=== PATIENT | male | born 1945 | race Caucasian/White ===

== ENCOUNTER → 2016-10-09 | Outpatient (CLI) | payer MEDICARE, BC ==
[2016-10-09 10:28] LABS: CH 31.4; CHCM 33.2; HCT 42.5 % (39.0-53.0); HDW 2.72; HGB 13.9 gm/dL (13.0-17.5); MCH 31.1 pg (25.0-35.0); MCHC 32.7 g/dL (31.0-37.0); MCV 95.2 fL (80.0-100.0); Mean Platelet Volume 7.3; RBC 4.46 m/uL (4.30-5.90); RDW 13.5 % (11.5-15.5); WBC 4.6 k/uL (3.8-10.6)
[2016-10-09 10:40] LABS: ALT 52 U/L (21-72); AST 38 U/L (17-59); Alkaline Phosphatase 56 U/L (38-126); Anion Gap 10 mmol/L; Blood Urea Nitrogen 20 mg/dL (9-20); Calcium 9.6 mg/dL (8.4-10.2); Carbon Dioxide 29 mmol/L (22-30); Chloride 104 mmol/L (98-107); Cholesterol 177 mg/dL (<200); Glucose 124 mg/dL (74-99); HDL Cholesterol 52 mg/dL (40-60); Non-African American GFR(MDRD) >60 (>60 ml/min/1.73 sqM); Potassium 5.4 mmol/L (3.5-5.1); Sodium 143 mmol/L (137-145); Total Protein 7.5 g/dL (6.3-8.2); Triglycerides 80 mg/dL (<150)
[2016-10-09 10:55] LABS: Hemoglobin A1C 6.2 % (4.2-6.1)
[2016-10-09 11:50] LABS: Prostate Specific Antigen 3.32 ng/mL (0.00-4.00)
== END | disposition home or self-care (01) ==
LOC: LABWHC1 09:43
PROVIDERS: ATTEND Radiology Radiation Oncology
DX: C61 Malignant neoplasm of prostate (principal); E11.9 Type 2 diabetes mellitus without complications
CPT/HCPCS: 36415; 80053; 80061; 83036; 84153; 84439; 84443; 85027

== ENCOUNTER → 2017-01-04 | Outpatient (CLI) | payer MEDICARE, BC | END | disposition home or self-care (01) | LOC: LABWHC1 07:17 | PROVIDERS: ATTEND Radiology Radiation Oncology | DX: C61 Malignant neoplasm of prostate (principal) | CPT/HCPCS: 36415; 84153 ==

== ENCOUNTER → 2017-04-04 | Outpatient (CLI) | payer MEDICARE, BC | END | disposition home or self-care (01) | LOC: LABWHC1 06:34 | PROVIDERS: ATTEND Radiology Radiation Oncology | DX: C61 Malignant neoplasm of prostate (principal) | CPT/HCPCS: 36415; 84153 ==

== ENCOUNTER → 2017-05-01 | Outpatient (CLI) | payer MEDICARE, BC ==
[2017-05-01 07:43] LABS: Basophils % (A) 0 %; CH 32.1; CHCM 33.9; Eosinophils # (A) 0.2 k/uL (0-0.7); Eosinophils % (A) 2 %; HCT 42.2 % (39.0-53.0); HDW 2.51; Luc # (Auto) 0.16; Luc % (Auto) 2; Lymphocytes # (A) 1.5 k/uL (1.0-4.8); Lymphocytes % (A) 22 %; MCH 31.6 pg (25.0-35.0); MCHC 33.2 g/dL (31.0-37.0); Monocytes # (A) 0.4 k/uL (0-1.0); Monocytes % (A) 7 %; Neutrophils # (A) 4.4 k/uL (1.3-7.7); Neutrophils % (A) 66 %; RBC 4.45 m/uL (4.30-5.90); RDW 13.7 % (11.5-15.5); WBC 6.7 k/uL (3.8-10.6); WBC (Perox) 6.67
[2017-05-01 08:09] LABS: ALT 42 U/L (21-72); AST 35 U/L (17-59); Alkaline Phosphatase 51 U/L (38-126); Anion Gap 10 mmol/L; Blood Urea Nitrogen 19 mg/dL (9-20); Calcium 9.8 mg/dL (8.4-10.2); Carbon Dioxide 29 mmol/L (22-30); Chloride 102 mmol/L (98-107); Cholesterol 182 mg/dL (<200); Glucose 99 mg/dL (74-99); HDL Cholesterol 49 mg/dL (40-60); Non-African American GFR(MDRD) >60 (>60 ml/min/1.73 sqM); Potassium 4.4 mmol/L (3.5-5.1); Sodium 141 mmol/L (137-145); Total Bilirubin 1.1 mg/dL (0.2-1.3); Total Protein 7.4 g/dL (6.3-8.2)
[2017-05-01 09:53] LABS: Hemoglobin A1C 6.1 % (4.2-6.1)
== END | disposition home or self-care (01) ==
LOC: LABWHC1 07:09
PROVIDERS: ATTEND Internal Medicine
DX: E11.9 Type 2 diabetes mellitus without complications (principal); E78.00 Pure hypercholesterolemia, unspecified; Z13.228 Encounter for screening for other metabolic disorders
CPT/HCPCS: 36415; 80053; 80061; 83036; 84439; 84443; 85025

== ENCOUNTER → 2017-11-02 | Outpatient (CLI) | payer MEDICARE, BC ==
[2017-11-02 08:15] LABS: Basophils % (A) 0 %; Eosinophils # (A) 0.1 k/uL (0-0.7); Eosinophils % (A) 3 %; HCT 44.2 % (39.0-53.0); Lymphocytes # (A) 1.9 k/uL (1.0-4.8); Lymphocytes % (A) 38 %; MCH 30.9 pg (25.0-35.0); MCHC 31.6 g/dL (31.0-37.0); MCV 97.6 fL (80.0-100.0); Mean Platelet Volume 6.5; Monocytes # (A) 0.3 k/uL (0-1.0); Monocytes % (A) 7 %; Neutrophils # (A) 2.5 k/uL (1.3-7.7); Neutrophils % (A) 50 %; Platelet Count 251 k/uL (150-450); RBC 4.53 m/uL (4.30-5.90); WBC 5.1 k/uL (3.8-10.6)
[2017-11-02 11:40] LABS: ALT 43 U/L (21-72); AST 30 U/L (17-59); Albumin 4.5 g/dL (3.5-5.0); Alkaline Phosphatase 55 U/L (38-126); Anion Gap 9 mmol/L; Blood Urea Nitrogen 21 mg/dL (9-20); Calcium 9.9 mg/dL (8.4-10.2); Carbon Dioxide 32 mmol/L (22-30); Chloride 103 mmol/L (98-107); Cholesterol 156 mg/dL (<200); Glucose 125 mg/dL (74-99); HDL Cholesterol 44 mg/dL (40-60); LDL Cholesterol,Calculated 93 mg/dL (0-99); Potassium 5.2 mmol/L (3.5-5.1); Sodium 144 mmol/L (137-145); Total Bilirubin 0.9 mg/dL (0.2-1.3); Total Protein 7.2 g/dL (6.3-8.2); Triglycerides 93 mg/dL (<150)
[2017-11-02 11:42] LABS: Hemoglobin A1C 6.1 % (4.0-6.0)
[2017-11-02 12:18] LABS: Prostate Specific Antigen 0.83 ng/mL (0.00-4.00)
[2017-11-02 13:51] LABS: T4, Free (Free Thyroxine) 0.86 ng/dL (0.78-2.19)
== END | disposition home or self-care (01) ==
LOC: LABWHC1 07:35
PROVIDERS: ATTEND Radiology Radiation Oncology
DX: C61 Malignant neoplasm of prostate (principal); E78.00 Pure hypercholesterolemia, unspecified; E11.9 Type 2 diabetes mellitus without complications
CPT/HCPCS: 36415; 80053; 80061; 83036; 84153; 84439; 84443; 85025

== ENCOUNTER → 2018-04-22 | Outpatient (CLI) | payer MEDICARE, BC ==
[2018-04-22 07:29] LABS: MCH 30.3 pg (25.0-35.0); MCHC 32.6 g/dL (31.0-37.0); Mean Platelet Volume 6.3; Platelet Count 253 k/uL (150-450); RBC 4.62 m/uL (4.30-5.90); RDW 13.1 % (11.5-15.5); WBC 6.9 k/uL (3.8-10.6)
[2018-04-22 09:06] LABS: Albumin 4.6 g/dL (3.5-5.0); Potassium 5.1 mmol/L (3.5-5.1); Total Bilirubin 1.1 mg/dL (0.2-1.3); Total Protein 7.4 g/dL (6.3-8.2)
[2018-04-22 09:36] LABS: Prostate Specific Antigen 1.46 ng/mL (0.00-4.00)
[2018-04-22 16:46] LABS: Hemoglobin A1C 6.3 % (4.0-6.0)
== END | disposition home or self-care (01) ==
LOC: LABWHC1 07:04
PROVIDERS: ATTEND Radiology Radiation Oncology
DX: C61 Malignant neoplasm of prostate (principal)
CPT/HCPCS: 36415; 80053; 83036; 84153; 85027

== ENCOUNTER → 2018-07-23 | Outpatient (CLI) | payer MEDICARE, BC ==
[2018-07-23 08:40] LABS: Basophils % (A) 0 %; Eosinophils # (A) 0.1 k/uL (0-0.7); Eosinophils % (A) 2 %; HCT 41.1 % (39.0-53.0); HGB 13.6 gm/dL (13.0-17.5); Lymphocytes # (A) 1.9 k/uL (1.0-4.8); Lymphocytes % (A) 29 %; MCH 30.7 pg (25.0-35.0); MCHC 33.2 g/dL (31.0-37.0); MCV 92.5 fL (80.0-100.0); Mean Platelet Volume 6.9; Monocytes # (A) 0.4 k/uL (0-1.0); Monocytes % (A) 6 %; Neutrophils # (A) 4.1 k/uL (1.3-7.7); Neutrophils % (A) 61 %; Platelet Count 265 k/uL (150-450); RBC 4.45 m/uL (4.30-5.90); RDW 13.2 % (11.5-15.5); WBC 6.6 k/uL (3.8-10.6)
[2018-07-23 16:31] LABS: Anion Gap 10.3 mmol/L (4.00-12.00); Calcium 9.6 mg/dL (8.7-10.3); Carbon Dioxide 26.7 mmol/L (21.6-31.8); Potassium 4.6 mmol/L (3.5-5.5)
[2018-07-23 16:40] LABS: Prostate Specific Antigen 0.6 ng/mL (0.0-6.5)
== END | disposition home or self-care (01) ==
LOC: LABWHC1 07:10
PROVIDERS: ATTEND Radiology Radiation Oncology
DX: C61 Malignant neoplasm of prostate (principal); Z92.3 Personal history of irradiation
CPT/HCPCS: 36415; 80048; 84153; 85025

== ENCOUNTER → 2018-09-16 | Outpatient (CLI) | payer MEDICARE, BC ==
[2018-09-16 09:57] LABS: Basophils % (A) 0 %; Eosinophils # (A) 0.2 k/uL (0-0.7); Eosinophils % (A) 2 %; HCT 43.8 % (39.0-53.0); HGB 14.2 gm/dL (13.0-17.5); Lymphocytes # (A) 1.9 k/uL (1.0-4.8); Lymphocytes % (A) 25 %; MCH 30.3 pg (25.0-35.0); MCHC 32.4 g/dL (31.0-37.0); MCV 93.5 fL (80.0-100.0); Mean Platelet Volume 6.8; Monocytes # (A) 0.6 k/uL (0-1.0); Monocytes % (A) 8 %; Neutrophils # (A) 4.8 k/uL (1.3-7.7); Neutrophils % (A) 62 %; Platelet Count 247 k/uL (150-450); RBC 4.68 m/uL (4.30-5.90); RDW 13.2 % (11.5-15.5); WBC 7.7 k/uL (3.8-10.6)
[2018-09-16 15:57] LABS: Albumin 4.9 g/dL (3.80-4.90); Albumin/Globulin Ratio 2.33 (1.20-2.10); Anion Gap 8.8 mmol/L (4.00-12.00); Calcium 10.1 mg/dL (8.7-10.3); Carbon Dioxide 27.2 mmol/L (21.6-31.8); Globulin 2.1 g/dL (1.6-3.3); LDL Cholesterol,Calculated 98.6 mg/dL (0.0-131.0); Potassium 5.2 mmol/L (3.5-5.5); Total Bilirubin 1.1 mg/dL (0.2-1.2); VLDL Calculation 23.4 mg/dL (5.00-40.00)
[2018-09-16 20:29] LABS: Hemoglobin A1C 6.3 % (4.0-6.0)
== END ==
LOC: LABWHC1 08:46
PROVIDERS: ATTEND Internal Medicine
DX: E78.00 Pure hypercholesterolemia, unspecified (principal); E11.9 Type 2 diabetes mellitus without complications
CPT/HCPCS: 36415; 80053; 80061; 83036; 84439; 84443; 85025

== ENCOUNTER → 2018-11-11 | Outpatient (CLI) | payer MEDICARE, BC ==
[2018-11-11 11:54] LABS: ALT 39 U/L (10-49); AST 38 U/L (14-35)
[2018-11-11 12:28] LABS: Hepatitis A Antibody IgM Non-Reactive (Non-Reactive); Hepatitis B Core IgM Non-Reactive (Non-Reactive)
== END | disposition home or self-care (01) ==
LOC: LABWHC1 07:04
PROVIDERS: ATTEND Internal Medicine
DX: R79.89 Other specified abnormal findings of blood chemistry (principal)
CPT/HCPCS: 36415; 80074; 84450; 84460

== ENCOUNTER → 2019-01-23 | Outpatient (CLI) | payer MEDICARE, BC ==
[2019-01-23 10:26] LABS: HCT 42.2 % (39.0-53.0); HGB 13.8 gm/dL (13.0-17.5); MCH 30.7 pg (25.0-35.0); MCHC 32.7 g/dL (31.0-37.0); MCV 93.9 fL (80.0-100.0); Mean Platelet Volume 6.5; Platelet Count 253 k/uL (150-450); RDW 13.2 % (11.5-15.5); WBC 6.3 k/uL (3.8-10.6)
[2019-01-23 10:28] LABS: Appearance,Urine Clear (Clear); Bilirubin,Urine Negative (Negative); Blood,Urine Negative (Negative); Color,Urine Yellow; Glucose,Urine (UA) Negative (Negative); Ketones,Urine Negative (Negative); Leukocyte Esterase,Urine Negative (Negative); Nitrite,Urine Negative (Negative); PH, Urine 5.5 (5.0-8.0); Protein,Urine Negative (Negative); Specific Gravity,Urine 1.022 (1.001-1.035); Urobilinogen,Urine <2.0 mg/dL (<2.0)
[2019-01-23 16:25] LABS: Albumin 4.5 g/dL (3.80-4.90); Albumin/Globulin Ratio 2.5 (1.60-3.17); Anion Gap 7.8 mmol/L (4.00-12.00); Calcium 9.3 mg/dL (8.7-10.3); Carbon Dioxide 29.2 mmol/L (21.6-31.8); Globulin 1.8 g/dL (1.6-3.3); LDL Cholesterol,Calculated 82.8 mg/dL (0.0-131.0); Total Bilirubin 0.8 mg/dL (0.2-1.2); Total Protein 6.3 g/dL (6.2-8.2); VLDL Calculation 20.2 mg/dL (5.00-40.00)
[2019-01-23 20:38] LABS: Hemoglobin A1C 6.4 % (4.0-6.0)
== END | disposition home or self-care (01) ==
LOC: LABWHC1 09:55
PROVIDERS: ATTEND Internal Medicine
DX: E11.9 Type 2 diabetes mellitus without complications (principal); E78.00 Pure hypercholesterolemia, unspecified
CPT/HCPCS: 36415; 80053; 80061; 81003; 82043; 82570; 83036; 85027

== ENCOUNTER → 2019-05-30 | Outpatient (CLI) | payer MEDICARE, BC | END | disposition home or self-care (01) | LOC: LABWHC1 07:56 | PROVIDERS: ATTEND Radiology Radiation Oncology | DX: C61 Malignant neoplasm of prostate (principal); Z92.3 Personal history of irradiation | CPT/HCPCS: 36415; 84153 ==

== ENCOUNTER → 2019-11-25 | Outpatient (CLI) | payer MEDICARE, BC | END | disposition home or self-care (01) | LOC: LABWHC1 07:06 | PROVIDERS: ATTEND Radiology Radiation Oncology | DX: C61 Malignant neoplasm of prostate (principal); Z92.3 Personal history of irradiation | CPT/HCPCS: 36415; 84153 ==

== ENCOUNTER → 2020-03-17 | Outpatient (CLI) | payer MEDICARE, BC ==
[2020-03-17 10:47] LABS: Basophils % (A) 0 %; Eosinophils # (A) 0.2 k/uL (0-0.7); Eosinophils % (A) 3 %; HCT 43.7 % (39.0-53.0); HGB 13.8 gm/dL (13.0-17.5); Lymphocytes # (A) 1.9 k/uL (1.0-4.8); Lymphocytes % (A) 35 %; MCH 30.1 pg (25.0-35.0); MCHC 31.6 g/dL (31.0-37.0); MCV 95.4 fL (80.0-100.0); Mean Platelet Volume 6.7; Monocytes # (A) 0.3 k/uL (0-1.0); Monocytes % (A) 6 %; Neutrophils % (A) 54 %; Platelet Count 241 k/uL (150-450); RBC 4.58 m/uL (4.30-5.90); RDW 12.9 % (11.5-15.5); WBC 5.5 k/uL (3.8-10.6)
[2020-03-17 16:21] LABS: Albumin 4.5 g/dL (3.80-4.90); Albumin/Globulin Ratio 2.05 (1.60-3.17); Anion Gap 7.6 mmol/L (4.00-12.00); Calcium 9.1 mg/dL (8.7-10.3); Carbon Dioxide 26.4 mmol/L (21.6-31.8); Chol/HDL Ratio 3.49; Globulin 2.2 g/dL (1.6-3.3); LDL Cholesterol,Calculated 78.2 mg/dL (0.0-131.0); Non-African American GFR(CKD) 73.3 (60.0-200.0); Potassium 4.8 mmol/L (3.5-5.5); Total Bilirubin 1.1 mg/dL (0.3-1.2); Total Protein 6.7 g/dL (6.2-8.2); VLDL Calculation 23.8 mg/dL (5.00-40.00)
[2020-03-17 17:04] LABS: Urine Creatinine 146.1 mg/dL
[2020-03-17 18:18] LABS: Hemoglobin A1C 6.4 % (4.0-6.0)
== END | disposition home or self-care (01) ==
LOC: LABWHC1 09:53
PROVIDERS: ATTEND Internal Medicine
DX: E78.00 Pure hypercholesterolemia, unspecified (principal); E11.9 Type 2 diabetes mellitus without complications
CPT/HCPCS: 36415; 80053; 80061; 82043; 82570; 83036; 85025

== ENCOUNTER → 2020-04-22 | Outpatient (CLI) | payer MEDICARE, BC ==
[2020-04-22 12:36] LABS: Hepatitis A Antibody IgM Non-Reactive (Non-Reactive); Hepatitis B Core IgM Non-Reactive (Non-Reactive); Hepatitis B Surface Antigen Non-Reactive (Non-Reactive); Hepatitis C IgG Antibody Non-Reactive (Non-Reactive)
== END | disposition home or self-care (01) ==
LOC: LABWHC1 07:10
PROVIDERS: ATTEND Internal Medicine
DX: Z20.828 Contact with and (suspected) exposure to other viral communicable diseases (principal)
CPT/HCPCS: 36415; 80074

== ENCOUNTER → 2020-06-29 | Outpatient (CLI) | payer MEDICARE, BC ==
[2020-06-29 07:37] LABS: Basophils % (A) 0 %; Eosinophils # (A) 0.3 k/uL (0-0.7); Eosinophils % (A) 4 %; HCT 42.9 % (39.0-53.0); HGB 13.8 gm/dL (13.0-17.5); Lymphocytes # (A) 2.2 k/uL (1.0-4.8); Lymphocytes % (A) 36 %; MCH 30.1 pg (25.0-35.0); MCV 93.9 fL (80.0-100.0); Monocytes # (A) 0.4 k/uL (0-1.0); Monocytes % (A) 7 %; Neutrophils # (A) 3.1 k/uL (1.3-7.7); Neutrophils % (A) 51 %; Platelet Count 237 k/uL (150-450); RBC 4.57 m/uL (4.30-5.90); RDW 13.2 % (11.5-15.5); WBC 6.2 k/uL (3.8-10.6)
[2020-06-29 14:00] LABS: Urine Creatinine 132.4 mg/dL
[2020-06-29 14:08] LABS: African American GFR (CKD) 68.1 (60.0-200.0); Albumin 4.4 g/dL (3.80-4.90); Albumin/Globulin Ratio 2.1 (1.60-3.17); Anion Gap 10.8 mmol/L (4.00-12.00); BUN/Creat Ratio 18.33 Ratio (12.00-20.00); Calcium 9.4 mg/dL (8.7-10.3); Carbon Dioxide 25.2 mmol/L (21.6-31.8); Chol/HDL Ratio 3.81; Globulin 2.1 g/dL (1.6-3.3); LDL Cholesterol,Calculated 99.6 mg/dL (0.0-131.0); Non-African American GFR(CKD) 58.8 (60.0-200.0); Potassium 4.5 mmol/L (3.5-5.5); Total Bilirubin 0.8 mg/dL (0.3-1.2); Total Protein 6.5 g/dL (6.2-8.2); VLDL Calculation 21.4 mg/dL (5.00-40.00)
[2020-06-29 14:24] LABS: Hemoglobin A1C 6.3 % (4.0-6.0)
== END | disposition home or self-care (01) ==
LOC: LABWHC1 06:58
PROVIDERS: ATTEND Internal Medicine
DX: E78.00 Pure hypercholesterolemia, unspecified (principal); E55.9 Vitamin D deficiency, unspecified; E11.9 Type 2 diabetes mellitus without complications
CPT/HCPCS: 36415; 80053; 80061; 82043; 82306; 82570; 83036; 85025

== ENCOUNTER → 2020-11-25 | Outpatient (CLI) | payer MEDICARE, BC | END | disposition home or self-care (01) | LOC: LABWHC1 07:44 | PROVIDERS: ATTEND Radiology Radiation Oncology | DX: C61 Malignant neoplasm of prostate (principal); Z92.3 Personal history of irradiation | CPT/HCPCS: 36415; 84153 ==

== ENCOUNTER 2021-03-26 11:15 | Emergency (ER) | payer MEDICARE, BC ==
[2021-03-26 11:30] VITALS: TEMP 98.2
--- NOTE | 2021-03-26 11:50 | ED ---
General Adult HPI - General Chief complaint: Urogenital Stated complaint: Male & abd pain Time Seen by Provider: 03/26/21 11:25 Source: patient, RN notes reviewed, old records reviewed Mode of arrival: ambulatory Limitations: no limitations - History of Present Illness Initial comments: This is a 75-year-old male who presents to the emergency department complaining of a little lower abdominal pain throughout the night and started having some left testicular discomfort and thinks it's a little swollen. Patient denies any palpable pain in the abdomen. Patient denies any back pain. Patient denies dysuria hematuria urinary frequency. Patient denies any injury or trauma. Patient states she does have history of kidney stones. Patient denies any recent fever chills or cough. Patient denies any chest pain or difficulty breathing. - Related Data Home Medications Medication Instructions Recorded Confirmed Aspirin 81 mg PO DAILY 02/25/15 03/26/21 Cholecalciferol [Vitamin D3] 1,000 unit PO DAILY 02/25/15 03/26/21 Diclofenac Sodium [Voltaren] 75 mg PO DAILY 02/25/15 03/26/21 Glucosam/Sekou-Msm1/C/Clay/Bosw 1 tab PO DAILY 02/25/15 03/26/21 [Glucosamine-Chondroitin Tablet] Multivitamins, Thera [Multivitamin] 1 tab PO DAILY 02/25/15 03/26/21 metFORMIN HCL [Metformin HCl ER] 500 mg PO DAILY 02/25/15 03/26/21 traMADol HCl [Ultram] 50 mg PO TID PRN 02/25/15 03/26/21 Ascorbic Acid [Vitamin C] 1,000 mg PO DAILY 03/26/21 03/26/21 Atorvastatin Calcium [Lipitor] 40 mg PO DAILY 03/26/21 03/26/21 Previous Rx's Medication Instructions Recorded Ketorolac [Toradol] 10 mg PO Q6HR #15 tab 03/26/21 Tamsulosin [Flomax] 0.4 mg PO DAILY #10 cap 03/26/21 Allergies Allergy/AdvReac Type Severity Reaction Status Date / Time acetaminophen Allergy INCREASED Verified 03/26/21 12:14 LIVER ENZYMES Review of Systems ROS Statement: Those systems with pertinent positive or pertinent negative responses have been documented in the HPI. ROS Other: All systems not noted in ROS Statement are negative. Past Medical History Past Medical History: Diabetes Mellitus, Hyperlipidemia, Osteoarthritis (OA), Sleep Apnea/CPAP/BIPAP Additional Past Medical History / Comment(s): USES CPAP. FAILED STRESS TEST. SEASONAL ALLERGIES. CHRONIC BACK PAIN. History of Any Multi-Drug Resistant Organisms: None Reported Past Surgical History: Back Surgery Additional Past Surgical History / Comment(s): BACK SURGERY TIMES 2. Past Anesthesia/Blood Transfusion Reactions: No Reported Reaction Past Psychological History: No Psychological Hx Reported Smoking Status: Never smoker Past Alcohol Use History: None Reported Past Drug Use History: None Reported - Past Family History Father Family Medical History: CVA/TIA General Exam - General Exam Comments Initial Comments: GENERAL: Patient is well-developed and well-nourished. Patient is nontoxic and well- hydrated and is in mild distress. ENT: Neck is soft and supple. No significant lymphadenopathy is noted. Oropharynx is clear. Moist mucous membranes. Neck has full range of motion without eliciting any pain. EYES: The sclera were anicteric and conjunctiva were pink and moist. Extraocular movements were intact and pupils were equal round and reactive to light. Eyelids were unremarkable. ABDOMEN: Soft and nontender with normal bowel sounds. GENITALIA: Patient's left testicle was slightly swollen and only minimally painful SKIN: Skin is clear with no lesions or rashes and otherwise unremarkable. NEUROLOGIC: Patient is alert and oriented x3. Cranial nerves II through XII are grossly intact. Motor and sensory are also intact. Normal speech, volume and content. Symmetrical smile. MUSCULOSKELETAL: Normal extremities with adequate strength and full range of motion. LYMPHATICS: No significant lymphadenopathy is noted PSYCHIATRIC: Normal psychiatric evaluation. Limitations: no limitations Course Vital Signs 03/26/21 03/26/21 03/26/21 11:26 13:55 14:53 Temperature 98.2 F Pulse Rate 57 L 59 L Respiratory 16 18 18 Rate Blood Pressure 151/84 139/80 132/81 O2 Sat by Pulse 96 99 Oximetry Medical Decision Making - Medical Decision Making Ultrasound showed possible epididymitis however the patient's pain was not consistent with epididymitis. I did CAT scan the patient's abdomen and it did show a mid left ureter stone with hydronephrosis. Patient received Toradol emergency department. I explained to the patient they did not think it epididymitis and that if he continued to bother him or symptoms worsened he was to follow-up with the ER or his primary medical care doctor immediately - Lab Data Result diagrams: 03/26/21 13:55 03/26/21 13:55 Lab Results 03/26/21 03/26/21 03/26/21 Range/Units 11:55 13:55 13:55 WBC 6.4 (3.8-10.6) k/uL RBC 4.18 L (4.30-5.90) m/uL Hgb 13.4 (13.0-17.5) gm/dL Hct 38.5 L (39.0-53.0) % MCV 92.1 (80.0-100.0) fL MCH 32.1 (25.0-35.0) pg MCHC 34.9 (31.0-37.0) g/dL RDW 12.8 (11.5-15.5) % Plt Count 236 (150-450) k/uL MPV 6.5 Neutrophils % 63 % Lymphocytes % 26 % Monocytes % 6 % Eosinophils % 4 % Basophils % 0 % Neutrophils # 4.0 (1.3-7.7) k/uL Lymphocytes # 1.6 (1.0-4.8) k/uL Monocytes # 0.4 (0-1.0) k/uL Eosinophils # 0.2 (0-0.7) k/uL Basophils # 0.0 (0-0.2) k/uL Sodium 138 (137-145) mmol/L Potassium 4.4 (3.5-5.1) mmol/L Chloride 107 (98-107) mmol/L Carbon Dioxide 26 (22-30) mmol/L Anion Gap 5 mmol/L BUN 21 H (9-20) mg/dL Creatinine 0.91 (0.66-1.25) mg/dL Est GFR (CKD-EPI)AfAm >90 (>60 ml/min/1.73 sqM) Est GFR (CKD-EPI)NonAf 82 (>60 ml/min/1.73 sqM) Glucose 127 H (74-99) mg/dL Calcium 9.3 (8.4-10.2) mg/dL Total Bilirubin 1.2 (0.2-1.3) mg/dL AST 36 (17-59) U/L ALT 32 (4-49) U/L Alkaline Phosphatase 38 (38-126) U/L Total Protein 6.4 (6.3-8.2) g/dL Albumin 3.9 (3.5-5.0) g/dL Urine Color Light Red Urine Appearance Cloudy (Clear) Urine pH 5.0 (5.0-8.0) Ur Specific [place] 1.020 (1.001-1.035) Urine Protein 1+ H (Negative) Urine Glucose (UA) Negative (Negative) Urine Ketones Negative (Negative) Urine Blood Large H (Negative) Urine Nitrite Negative (Negative) Urine Bilirubin Negative (Negative) Urine Urobilinogen <2.0 (<2.0) mg/dL Ur Leukocyte Esterase Negative (Negative) Urine RBC >182 H (0-5) /hpf Urine WBC 7 H (0-5) /hpf Urine Bacteria Rare H (None) /hpf Urine Mucus Rare H (None) /hpf Disposition Clinical Impression: Kidney stone Disposition: HOME SELF-CARE Condition: Good Instructions (If sedation given, give patient instructions): Kidney Stones (ED), How to Strain Your Urine (ED) Prescriptions: Tamsulosin [Flomax] 0.4 mg PO DAILY #10 cap Ketorolac [Toradol] 10 mg PO Q6HR #15 tab Is patient prescribed a controlled substance at d/c from ED?: No Referrals: Gabby Velazquez MD [Primary Care Provider] - 1-2 days Time of Disposition: 15:03
[2021-03-26 12:16] LABS: Appearance,Urine Cloudy (Clear); Bacteria,Urine Rare /hpf; Bilirubin,Urine Negative (Negative); Blood,Urine Large (Negative); Color,Urine Light Red; Glucose,Urine (UA) Negative (Negative); Ketones,Urine Negative (Negative); Leukocyte Esterase,Urine Negative (Negative); Mucus,Urine Rare /hpf; Nitrite,Urine Negative (Negative); Protein,Urine 1+ (Negative); RBC,Urine >182 /hpf (0-5); Urobilinogen,Urine <2.0 mg/dL (<2.0); WBC,Urine 7 /hpf (0-5)
--- NOTE | 2021-03-26 12:42 | US ---
EXAMINATION TYPE: US scrotum with doppler. Grayscale and color Doppler Duplex imaging performed of bo fernández scrotum. DATE OF EXAM: 03/26/2021 COMPARISON: NONE CLINICAL HISTORY: Swollen painful testicle. EXAM MEASUREMENTS: TESTICLES: Right Testicle: 5.4 x 3.4 x 3.7 cm Left Testicle: 5.5 x 2.8 x 3.8 cm EPIDIDYMIS HEAD: Right Epididymis: 1.0 x 1.5 cm Left Epididymis: 1.3 x 0.8 cm Doppler performed to assess for testicular vascularity; good bilateral color flow and waveforms are s een. Asymmetrically increased flow in the left testicle compared to the right. There may be tiny cysts in the bilateral testicular parenchyma. No concerning testicular mass. Presence of hydroceles: small amount of fluid around left testicle. Soft tissue: Left testicular wall edema. IMPRESSION: 1. No evidence of testicular torsion. 2. Findings suggest left epididymitis and/or orchitis.
[2021-03-26 13:56] VITALS: RESP 18
[2021-03-26 14:05] LABS: Basophils % (A) 0 %; Eosinophils # (A) 0.2 k/uL (0-0.7); Eosinophils % (A) 4 %; HCT 38.5 % (39.0-53.0); HGB 13.4 gm/dL (13.0-17.5); Lymphocytes # (A) 1.6 k/uL (1.0-4.8); Lymphocytes % (A) 26 %; MCH 32.1 pg (25.0-35.0); MCHC 34.9 g/dL (31.0-37.0); MCV 92.1 fL (80.0-100.0); Mean Platelet Volume 6.5; Monocytes # (A) 0.4 k/uL (0-1.0); Monocytes % (A) 6 %; Neutrophils % (A) 63 %; Platelet Count 236 k/uL (150-450); RBC 4.18 m/uL (4.30-5.90); RDW 12.8 % (11.5-15.5); WBC 6.4 k/uL (3.8-10.6)
[2021-03-26 14:13] LABS: ALT 32 U/L (4-49); AST 36 U/L (17-59); African American GFR (CKD) >90 (>60 ml/min/1.73 sqM); Albumin 3.9 g/dL (3.5-5.0); Alkaline Phosphatase 38 U/L (38-126); Anion Gap 5 mmol/L; Blood Urea Nitrogen 21 mg/dL (9-20); Calcium 9.3 mg/dL (8.4-10.2); Carbon Dioxide 26 mmol/L (22-30); Chloride 107 mmol/L (98-107); Glucose 127 mg/dL (74-99); Non-African American GFR(CKD) 82 (>60 ml/min/1.73 sqM); Potassium 4.4 mmol/L (3.5-5.1); Sodium 138 mmol/L (137-145); Total Bilirubin 1.2 mg/dL (0.2-1.3); Total Protein 6.4 g/dL (6.3-8.2)
--- NOTE | 2021-03-26 14:40 | CT ---
EXAMINATION TYPE: CT abdomen pelvis wo con DATE OF EXAM: 03/26/2021 COMPARISON: None HISTORY: gross hematuria, bilateral pelvic pain, worse on left CT DLP: 1835 mGycm Automated exposure control for dose reduction was used. There is mild subsegmental atelectasis at the lung bases. Heart size is normal. There is no pericardi al effusion. Liver spleen stomach pancreas gallbladder appear intact. The bile ducts are not dilated. There is no adrenal mass. There is 2 cm cortical cyst posterior right kidney. There are bilateral renal calculi that measure up to 8 mm. There is 2 cm cortical cyst upper pole left kidney. There is mild left-sided hydronephrosis . There is 5 mm obstructing calculus in the mid left ureter. The right ureter is not dilated. There i s no retroperitoneal adenopathy. The bladder distends smoothly. There is left-sided inguinal hernia t hat contains fat. There is no free fluid in the pelvis. There is no mesenteric edema. There is no ascites or free air. There is no bowel obstruction. There i s isolated sigmoid diverticula. There is no diverticulitis. Appendix appears normal. The lumbar vertebra have fairly normal alignment. There is a mild degenerative first-degree L4-5 spon dylolisthesis. There is moderately severe spinal stenosis at L4-5. There is less severe stenosis at L 3-4. There is mild stenosis also at L2-3. There is no compression fracture. The hip joints are intact . The bony pelvis appears intact. IMPRESSION: Obstructing calculus left mid ureter with left-sided hydronephrosis. Bilateral renal calculi. Normal appendix.
[2021-03-26 14:54] VITALS: PULSE 59
[2021-03-26] MEDS: KETOROLAC 15 MG/ML 1 ML VIAL IVP STA (15:09)
[2021-03-26 15:12] VITALS: BP 158/84
== END 2021-03-26 15:13 | disposition home or self-care (01) ==
LOC: EC 11:15
DX: N13.2 Hydronephrosis with renal and ureteral calculous obstruction (principal); N50.812 Left testicular pain; N50.89 Other specified disorders of the male genital organs; E11.9 Type 2 diabetes mellitus without complications; E78.5 Hyperlipidemia, unspecified; M19.90 Unspecified osteoarthritis, unspecified site; G47.30 Sleep apnea, unspecified; Z79.82 Long term (current) use of aspirin; Z79.84 Long term (current) use of oral hypoglycemic drugs
CPT/HCPCS: 36415; 80053; 85025; 81001; 93975; 76870; 74176; 99284; 96374; J1885

== ENCOUNTER → 2021-05-31 | Outpatient (CLI) | payer MEDICARE, BC ==
[2021-05-31 11:03] LABS: Basophils # (A) 0.02 X 10*3/uL (0.00-0.10); Basophils % (A) 0.3 %; Eosinophils # (A) 0.18 X 10*3/uL (0.04-0.35); Eosinophils % (A) 2.8 %; HCT 39.7 % (39.6-50.0); Lymphocytes # (A) 1.63 X 10*3/uL (0.90-5.00); Lymphocytes % (A) 25.8 %; MCH 31.2 pg (27.0-32.0); MCHC 32.7 g/dL (32.0-37.0); MCV 95.2 fL (80.0-97.0); Mean Platelet Volume 9.7 fL (9.5-12.2); Monocytes # (A) 0.63 X 10*3/uL (0.20-1.00); Neutrophils # (A) 3.85 X 10*3/uL (1.80-7.70); Neutrophils % (A) 60.9 %; Platelet Count 267 X 10*3/uL (140-440); RBC 4.17 X 10*6/uL (4.40-5.60); RDW 12.5 % (11.5-14.5); WBC 6.32 X 10*3/uL (4.50-10.00)
[2021-05-31 12:35] LABS: African American GFR (CKD) 67.7 (60.0-200.0); Albumin 4.4 g/dL (3.80-4.90); Albumin/Globulin Ratio 1.83 (1.60-3.17); Anion Gap 10.2 mmol/L (4.00-12.00); BUN/Creat Ratio 18.33 Ratio (12.00-20.00); Calcium 9.6 mg/dL (8.7-10.3); Carbon Dioxide 25.8 mmol/L (21.6-31.8); Chol/HDL Ratio 3.3; Globulin 2.4 g/dL (1.6-3.3); LDL Cholesterol,Calculated 91.8 mg/dL (0.0-131.0); Non-African American GFR(CKD) 58.4 (60.0-200.0); Potassium 4.1 mmol/L (3.5-5.5); Total Protein 6.8 g/dL (6.2-8.2); VLDL Calculation 16.2 mg/dL (5.00-40.00)
[2021-05-31 15:01] LABS: Hemoglobin A1C 6.5 % (4.0-6.0)
== END | disposition home or self-care (01) ==
LOC: LABWHC1 07:00
PROVIDERS: ATTEND Internal Medicine
DX: Z00.01 Encounter for general adult medical examination with abnormal findings (principal); E11.9 Type 2 diabetes mellitus without complications; E78.00 Pure hypercholesterolemia, unspecified; E55.9 Vitamin D deficiency, unspecified
CPT/HCPCS: 36415; 80053; 80061; 82043; 82306; 82570; 83036; 85025

== ENCOUNTER → 2021-11-30 | Outpatient (CLI) | payer MEDICARE, BC ==
[2021-11-30 15:31] LABS: Basophils # (A) 0.03 X 10*3/uL (0.00-0.10); Basophils % (A) 0.4 %; Eosinophils # (A) 0.21 X 10*3/uL (0.04-0.35); Eosinophils % (A) 2.9 %; HCT 40.9 % (39.6-50.0); HGB 13.3 g/dL (13.0-17.0); Immature Grans, Automated 0.3 %; Lymphocytes # (A) 2.16 X 10*3/uL (0.90-5.00); Lymphocytes % (A) 30.3 %; MCH 30.5 pg (27.0-32.0); MCHC 32.5 g/dL (32.0-37.0); MCV 93.8 fL (80.0-97.0); Mean Platelet Volume 9.9 fL (9.5-12.2); Monocytes % (A) 9.8 %; NRBC Per 100 WBC 0 /100 WBCS (0.0-0.0); Neutrophils % (A) 56.3 %; Platelet Count 249 X 10*3/uL (140-440); RBC 4.36 X 10*6/uL (4.40-5.60); RDW 12.6 % (11.5-14.5); WBC 7.12 X 10*3/uL (4.50-10.00)
[2021-12-01 01:21] LABS: Chol/HDL Ratio 3.65 Ratio; LDL Cholesterol,Calculated 86.1 mg/dL (0.0-131.0)
[2021-12-01 01:24] LABS: ALT 51 U/L (10-49); AST 38 U/L (14-35); African American GFR (CKD) 67.2 (60.0-200.0); Albumin 4.5 g/dL (3.8-4.9); Alkaline Phosphatase 45 U/L (41-126); Blood Urea Nitrogen 18.6 mg/dL (9.0-27.0); Calcium 9.7 mg/dL (8.7-10.3); Carbon Dioxide 25.7 mmol/L (20.0-27.5); Chloride 102 mmol/L (96-109); Globulin 2.5 g/dL (1.6-3.3); Glucose 124 mg/dL (70-110); Potassium 4.9 mmol/L (3.5-5.5); Sodium 139 mmol/L (135-145)
== END | disposition home or self-care (01) ==
LOC: LABWHC1 10:04
PROVIDERS: ATTEND Radiology Radiation Oncology
DX: Z08 Encounter for follow-up examination after completed treatment for malignant neoplasm (principal); Z12.5 Encounter for screening for malignant neoplasm of prostate; C61 Malignant neoplasm of prostate; E11.9 Type 2 diabetes mellitus without complications; E78.00 Pure hypercholesterolemia, unspecified; E55.9 Vitamin D deficiency, unspecified; Z85.46 Personal history of malignant neoplasm of prostate; Z92.3 Personal history of irradiation
CPT/HCPCS: 36415; 80053; 80061; 82306; 83036; 84153; 85025

== ENCOUNTER 2022-07-08 11:17 | Emergency (ER) | payer MEDICARE, BC ==
[2022-07-08 12:08] VITALS: TEMP 98.2
[2022-07-08 13:25] LABS: Appearance,Urine Clear (Clear); Bilirubin,Urine Negative (Negative); Blood,Urine Negative (Negative); Color,Urine Yellow; Glucose,Urine (UA) Negative (Negative); Ketones,Urine Negative (Negative); Leukocyte Esterase,Urine Negative (Negative); Nitrite,Urine Negative (Negative); Protein,Urine Trace (Negative); Specific Gravity,Urine 1.018 (1.001-1.035); Urobilinogen,Urine <2.0 mg/dL (<2.0)
[2022-07-08 13:35] LABS: Basophils % (A) 0 %; Eosinophils # (A) 0.1 k/uL (0-0.7); Eosinophils % (A) 1 %; HGB 13.6 gm/dL (13.0-17.5); Lymphocytes # (A) 1.6 k/uL (1.0-4.8); Lymphocytes % (A) 18 %; MCH 32.3 pg (25.0-35.0); MCHC 34.9 g/dL (31.0-37.0); MCV 92.4 fL (80.0-100.0); Mean Platelet Volume 8.1; Monocytes # (A) 0.6 k/uL (0-1.0); Monocytes % (A) 7 %; Neutrophils # (A) 6.5 k/uL (1.3-7.7); Neutrophils % (A) 72 %; Platelet Count 224 k/uL (150-450); RBC 4.22 m/uL (4.30-5.90); RDW 12.9 % (11.5-15.5)
[2022-07-08 13:45] LABS: Albumin 4.5 g/dL (3.5-5.0); Calcium 9.2 mg/dL (8.4-10.2); Potassium 4.7 mmol/L (3.5-5.1); Total Bilirubin 1.3 mg/dL (0.2-1.3); Total Protein 7.3 g/dL (6.3-8.2)
[2022-07-08] MEDS ORDERED: ONDANSETRON 4 MG/2 ML VIAL IVP STA (15:23)
[2022-07-08] MEDS ORDERED: SODIUM CHLORIDE 0.9% 1,000 ML IV ONE (15:23)
--- NOTE | 2022-07-08 16:08 | XR ---
EXAMINATION TYPE: XR KUB DATE OF EXAM: 07/08/2022 4:02 PM INDICATION: Patient age:Male; 76 years old; Reason for study: Nausea/vomiting; PHH. COMPARISON: CT abdomen pelvis 03/26/2021 TECHNIQUE: One radiographic view of the abdomen was obtained. FINDINGS: The bowel gas pattern is nonspecific without dilated loops of small or large bowel. There i s no evidence for organomegaly or pneumoperitoneum. The osseous structures are intact. Degenerative changes are present throughout the visualized thoracic and lumbar spine. Degenerative changes of the hip joints. Single 6 mm calcific density projects over the right renal silhouette. Multiple phlebolit hs are noted within the pelvis. Fecal material and gas are demonstrated throughout the colon and rect um. Visualized portions of the lung bases are within normal limits. IMPRESSION: 1. No evidence for bowel obstruction. 2. Questionable calcific density near the right renal silhouette, likely correlates to renal calculi seen on prior CT examination from 03/26/2021. 3. Osteoarthritic degenerative changes.
--- NOTE | 2022-07-08 16:27 | ED ---
Abdominal Pain HPI - General Chief Complaint: Abdominal Pain Stated Complaint: nausea Time Seen by Provider: 07/08/22 15:08 Source: patient Mode of arrival: ambulatory Limitations: no limitations - History of Present Illness Initial Comments: 76-year-old male patient presents to the emergency department today for evaluation of nausea and dry heaves for the last 3 days. States his stomach is felt uncomfortable but denies any pain. He is not having any difficulty with urination. No diarrhea or constipation. Denies any fever or chills. Denies any chest pain or shortness of breath. Denies any dizziness or weakness. Denies starting or stopping any medications. Denies any dark, bloody, or black stools. Denies any bloody emesis or coffee ground emesis. Denies any recent travel or contacts. Did have Covid at the end of May. Patient denies any recent rash, cough, back pain, numbness, tingling, dizziness, weakness, hematuria, dysuria, urinary urgency, urinary frequency, headache, visual changes, or any other complaints. - Related Data Home Medications Medication Instructions Recorded Confirmed Aspirin 81 mg PO DAILY 02/25/15 03/26/21 Cholecalciferol [Vitamin D3] 1,000 unit PO DAILY 02/25/15 03/26/21 Diclofenac Sodium [Voltaren] 75 mg PO DAILY 02/25/15 03/26/21 Glucosam/Sekou-Msm1/C/Clay/Bosw 1 tab PO DAILY 02/25/15 03/26/21 [Glucosamine-Chondroitin Tablet] Multivitamins, Thera [Multivitamin] 1 tab PO DAILY 02/25/15 03/26/21 metFORMIN HCL [Metformin HCl ER] 500 mg PO DAILY 02/25/15 03/26/21 traMADol HCl [Ultram] 50 mg PO TID PRN 02/25/15 03/26/21 Ascorbic Acid [Vitamin C] 1,000 mg PO DAILY 03/26/21 03/26/21 Atorvastatin Calcium [Lipitor] 40 mg PO DAILY 03/26/21 03/26/21 Previous Rx's Medication Instructions Recorded Ketorolac [Toradol] 10 mg PO Q6HR #15 tab 03/26/21 Tamsulosin [Flomax] 0.4 mg PO DAILY #10 cap 03/26/21 Ondansetron Odt [Zofran Odt] 4 mg PO Q8HR PRN #15 tab 07/08/22 Allergies Allergy/AdvReac Type Severity Reaction Status Date / Time acetaminophen Allergy INCREASED Verified 07/08/22 12:03 LIVER ENZYMES Review of Systems ROS Statement: Those systems with pertinent positive or pertinent negative responses have been documented in the HPI. ROS Other: All systems not noted in ROS Statement are negative. Past Medical History Past Medical History: Diabetes Mellitus, Hyperlipidemia, Osteoarthritis (OA), Sleep Apnea/CPAP/BIPAP Additional Past Medical History / Comment(s): USES CPAP. FAILED STRESS TEST. SEASONAL ALLERGIES. CHRONIC BACK PAIN. History of Any Multi-Drug Resistant Organisms: None Reported Past Surgical History: Back Surgery Additional Past Surgical History / Comment(s): BACK SURGERY TIMES 2. Past Anesthesia/Blood Transfusion Reactions: No Reported Reaction Past Psychological History: No Psychological Hx Reported Smoking Status: Never smoker Past Alcohol Use History: None Reported Past Drug Use History: None Reported - Past Family History Father Family Medical History: CVA/TIA General Exam Limitations: no limitations General appearance: alert, in no apparent distress, other (This is a well- developed, well-nourished elderly male patient in no acute distress.) Eye exam: Present: normal appearance, PERRL, EOMI. Absent: scleral icterus, conjunctival injection, periorbital swelling ENT exam: Present: normal exam, normal oropharynx, mucous membranes moist Respiratory exam: Present: normal lung sounds bilaterally. Absent: respiratory distress, wheezes, rales, rhonchi, stridor Cardiovascular Exam: Present: regular rate, normal rhythm, normal heart sounds. Absent: systolic murmur, diastolic murmur, rubs, gallop, clicks GI/Abdominal exam: Present: soft, normal bowel sounds. Absent: distended, tenderness, guarding, rebound, rigid Neurological exam: Present: alert, oriented X3, CN II-XII intact Psychiatric exam: Present: normal affect, normal mood Skin exam: Present: warm, dry, intact, normal color. Absent: rash Course Vital Signs 07/08/22 07/08/22 12:04 15:44 Temperature 98.2 F Pulse Rate 64 59 L Respiratory 16 16 Rate Blood Pressure 154/79 142/74 O2 Sat by Pulse 95 96 Oximetry Medical Decision Making - Medical Decision Making 76-year-old male patient presented to the emergency department today for evaluation of nausea and dry heaves for the last 3 days. Physical examination revealed soft nontender abdomen. No CVA tenderness. Labs reviewed and revealed normal white blood cell count. Elevated BUN at 28, elevated creatinine at 1.67, elevated glucose of 128. Troponin was negative. Urinalysis was negative. EKG showed sinus rhythm with no ST elevation or depression. KUB showed normal bowel gas pattern and calcification over the right kidney consistent with stone. Patient was given 1 L of IV fluids and Zofran here. Upon reevaluation states he is feeling better. Abdomen remained soft and nontender. He will be discharged home with prescription for Zofran. Instructed to follow-up with his primary care physician on Sunday for retesting of his kidney function and to discuss symptoms of not improved. Return parameters were discussed in detail. He verbalizes understanding and agrees with this plan. My attending is Dr. Fallon. - Lab Data Result diagrams: 07/08/22 12:59 07/08/22 12:59 Lab Results 07/08/22 07/08/22 07/08/22 Range/Units 12:59 12:59 12:59 WBC 9.0 (3.8-10.6) k/uL RBC 4.22 L (4.30-5.90) m/uL Hgb 13.6 (13.0-17.5) gm/dL Hct 39.0 (39.0-53.0) % MCV 92.4 (80.0-100.0) fL MCH 32.3 (25.0-35.0) pg MCHC 34.9 (31.0-37.0) g/dL RDW 12.9 (11.5-15.5) % Plt Count 224 (150-450) k/uL MPV 8.1 Neutrophils % 72 % Lymphocytes % 18 % Monocytes % 7 % Eosinophils % 1 % Basophils % 0 % Neutrophils # 6.5 (1.3-7.7) k/uL Lymphocytes # 1.6 (1.0-4.8) k/uL Monocytes # 0.6 (0-1.0) k/uL Eosinophils # 0.1 (0-0.7) k/uL Basophils # 0.0 (0-0.2) k/uL Sodium 137 (137-145) mmol/L Potassium 4.7 (3.5-5.1) mmol/L Chloride 100 (98-107) mmol/L Carbon Dioxide 25 (22-30) mmol/L Anion Gap 12 mmol/L BUN 28 H (9-20) mg/dL Creatinine 1.67 H (0.66-1.25) mg/dL Est GFR (CKD-EPI)AfAm 45 (>60 ml/min/1.73 sqM) Est GFR (CKD-EPI)NonAf 39 (>60 ml/min/1.73 sqM) Glucose 128 H (74-99) mg/dL Calcium 9.2 (8.4-10.2) mg/dL Total Bilirubin 1.3 (0.2-1.3) mg/dL AST 37 (17-59) U/L ALT 39 (4-49) U/L Alkaline Phosphatase 56 (38-126) U/L Troponin I (0.000-0.034) ng/mL Total Protein 7.3 (6.3-8.2) g/dL Albumin 4.5 (3.5-5.0) g/dL Amylase 57 (30-110) U/L Lipase 64 (23-300) U/L Urine Color Yellow Urine Appearance Clear (Clear) Urine pH 6.0 (5.0-8.0) Ur Specific [place] 1.018 (1.001-1.035) Urine Protein Trace H (Negative) Urine Glucose (UA) Negative (Negative) Urine Ketones Negative (Negative) Urine Blood Negative (Negative) Urine Nitrite Negative (Negative) Urine Bilirubin Negative (Negative) Urine Urobilinogen <2.0 (<2.0) mg/dL Ur Leukocyte Esterase Negative (Negative) 07/08/22 Range/Units 12:59 WBC (3.8-10.6) k/uL RBC (4.30-5.90) m/uL Hgb (13.0-17.5) gm/dL Hct (39.0-53.0) % MCV (80.0-100.0) fL MCH (25.0-35.0) pg MCHC (31.0-37.0) g/dL RDW (11.5-15.5) % Plt Count (150-450) k/uL MPV Neutrophils % % Lymphocytes % % Monocytes % % Eosinophils % % Basophils % % Neutrophils # (1.3-7.7) k/uL Lymphocytes # (1.0-4.8) k/uL Monocytes # (0-1.0) k/uL Eosinophils # (0-0.7) k/uL Basophils # (0-0.2) k/uL Sodium (137-145) mmol/L Potassium (3.5-5.1) mmol/L Chloride (98-107) mmol/L Carbon Dioxide (22-30) mmol/L Anion Gap mmol/L BUN (9-20) mg/dL Creatinine (0.66-1.25) mg/dL Est GFR (CKD-EPI)AfAm (>60 ml/min/1.73 sqM) Est GFR (CKD-EPI)NonAf (>60 ml/min/1.73 sqM) Glucose (74-99) mg/dL Calcium (8.4-10.2) mg/dL Total Bilirubin (0.2-1.3) mg/dL AST (17-59) U/L ALT (4-49) U/L Alkaline Phosphatase (38-126) U/L Troponin I <0.012 (0.000-0.034) ng/mL Total Protein (6.3-8.2) g/dL Albumin (3.5-5.0) g/dL Amylase (30-110) U/L Lipase (23-300) U/L Urine Color Urine Appearance (Clear) Urine pH (5.0-8.0) Ur Specific [place] (1.001-1.035) Urine Protein (Negative) Urine Glucose (UA) (Negative) Urine Ketones (Negative) Urine Blood (Negative) Urine Nitrite (Negative) Urine Bilirubin (Negative) Urine Urobilinogen (<2.0) mg/dL Ur Leukocyte Esterase (Negative) - EKG Data -: EKG Interpreted by Me EKG Comments: EKG obtained at 1535 shows normal sinus rhythm with a rate of 61, MO interval 150, QRS duration 93, QT 396, QTc 400. No evidence of ST elevation or depression. - Radiology Data Radiology results: report reviewed, image reviewed X-ray of the abdomen was obtained. Report was reviewed in its entirety. Impression by Dr. Salomon shows no evidence for bowel obstruction. Questionable calcific density near the right renal silhouette, likely correlates renal calculi seen on prior CT exam of 03/26/2021. Osteoarthritic degenerative tomlin es. Disposition Clinical Impression: Nausea, Dry heaves, Acute kidney injury Disposition: HOME SELF-CARE Condition: Good Instructions (If sedation given, give patient instructions): Acute Kidney Injury (DC), Acute Nausea and Vomiting (ED) Additional Instructions: 1. Start with clear liquid diet and advanced as tolerated. 2. Take zofran every 6-8 hours for nausea. 3. Call your physician on Sunday to request appointment. Let them know you need to have kidney function rechecked. 4. Return to the emergency room if any new, worsening, or concerning symptoms. Prescriptions: Ondansetron Odt [Zofran Odt] 4 mg PO Q8HR PRN #15 tab PRN Reason: Nausea Is patient prescribed a controlled substance at d/c from ED?: No Referrals: Gabby Velazquez MD [Primary Care Provider] - 1-2 days Time of Disposition: 16:36
[2022-07-08] MEDS ORDERED: ONDANSETRON 4 MG ODT STARTER PACK 2 TAB BTL PO STA (16:33)
[2022-07-08 17:12] VITALS: BP 138/78; PULSE 78; RESP 18
== END 2022-07-08 17:11 | disposition home or self-care (01) ==
LOC: EC 11:17
DX: N17.9 Acute kidney failure, unspecified (principal); E11.9 Type 2 diabetes mellitus without complications; E78.5 Hyperlipidemia, unspecified; Z79.899 Other long term (current) drug therapy; Z88.6 Allergy status to analgesic agent
CPT/HCPCS: 36415; 93005; 80053; 82150; 83690; 84484; 85025; 81003; 74018; 99284; 96374; 96361; J2405; S0119

== ENCOUNTER → 2022-09-01 | Outpatient (CLI) | payer MEDICARE, BC ==
--- NOTE | 2022-09-01 20:45 | US ---
EXAMINATION TYPE: US kidneys/renal and bladder DATE OF EXAM: 09/01/2022 COMPARISON: CT CLINICAL HISTORY: N18.32 CHRONIC KIDNEY DISEASE, STAGE 3B. CKD, known renal stones EXAM MEASUREMENTS: Right Kidney: 12.0 x 6.8 x 5.4 cm Left Kidney: 14.2 x 5.3 x 5.3 cm Right Kidney: Cyst mid/lateral= 2.2 x 1.8 x 2.6 cm/ no evidence of hydro, probable renal calculi lowe r pole= 1.1 cm Left Kidney: Cyst mid/lateral= 0.7 x 0.8 x 0.8 cm/ Moderate hydro/ probable renal calculi lower pole= 1.2 cm Bladder: wnl Bilateral Jets seen: No There is no evidence for hydronephrosis at this point in time. No nephrolithiasis is seen. No roxane s are identified. The urinary bladder is anechoic. Bilateral ureteral jets are seen. IMPRESSION: 1. Moderate left hydronephrosis. Consider further evaluation with cross-sectional imaging. 2. Bilateral renal cysts. 3. Bilateral renal calculi as seen on prior CT.
== END | disposition home or self-care (01) ==
LOC: RADUSWWP 16:06
PROVIDERS: ATTEND Internal Medicine
DX: N18.32 Chronic kidney disease, stage 3b (principal); N13.30 Unspecified hydronephrosis; N28.1 Cyst of kidney, acquired; N20.0 Calculus of kidney
CPT/HCPCS: 76770

== ENCOUNTER → 2022-09-07 | Outpatient (CLI) | payer MEDICARE, BC ==
--- NOTE | 2022-09-07 23:18 | CT ---
EXAMINATION TYPE: CT abdomen pelvis wo con DATE OF EXAM: 09/07/2022 HISTORY: LT hydronephrosis, renal stones CT DLP: 1369.70 mGycm. Automated Exposure Control for Dose Reduction was Utilized. TECHNIQUE: CT scan of the abdomen and pelvis is performed without oral or IV contrast. COMPARISON: Prior CT March 26, 2021. Most recent ultrasound 6 days ago. FINDINGS: Within the limitations of a non-contrast study, the following observations are made. LUNG BASES: Elevated left hemidiaphragm redemonstrated. Some coronary artery calcification is again s een. LIVER/GB: No significant abnormality is appreciated. PANCREAS: No significant abnormality is seen. SPLEEN: No significant abnormality is seen. ADRENALS: No significant abnormality is seen. KIDNEYS: Right kidney has 2 mm nonobstructing calculus coronal image 61 lower pole level redemonstrat ed. There is 1.8 cm partially exophytic thin-walled cyst posteriorly lower pole of the right kidney a xial image 68. No right-sided hydronephrosis. No proximal hydroureter. There is 8 mm calculus in the proximal right ureter sagittal image 62 noted. There is no 8mm nonobstructing calculus lower pole left kidney, image 59. There is 1.9 cm simple appe aring thin-walled cyst laterally upper pole left kidney axial image 53. There is confirmation of mode rate to severe left-sided hydronephrosis. There is obstructing 11 to 12 mm distal left ureter calculu s right before UVJ axial image 130 corresponding to sagittal image 84 current study. No intraluminal calculus in the bladder. BOWEL: Debris filled stomach suggests recent meal ingestion. No suspicious small or large bowel dilat ation. Slightly redundant sigmoid colon. GENITAL ORGANS: No gross abnormality seen. LYMPH NODES: No greater than 1cm abdominal or pelvic lymph nodes are appreciated. OSSEOUS STRUCTURES: Multilevel facet arthropathy in the lower lumbar spine. Severe disc space narrowi ng lumbosacral junction. Moderate disc space narrowing with vacuum disc phenomenon right L3-L4 level. Prominent spurring at the bilateral sacroiliac joints. Orab-ff-[id number] axial joint space loss and m ild acetabular spurring of both hips. OTHER: Moderate to large sized fat containing left greater than right bilateral inguinal hernias are redemonstrated. . IMPRESSION: 1. Confirmation of moderate to large size left-sided hydronephrosis due to obstructing 11 to 12 mm ca lculus in the distal left ureter right before UVJ. 2. No right-sided hydronephrosis but there is 8mm proximal right ureter calculus noted on current camryn dy.
== END | disposition home or self-care (01) ==
LOC: RADCTMAIN 17:53
PROVIDERS: ATTEND Urology
DX: N13.2 Hydronephrosis with renal and ureteral calculous obstruction (principal)
CPT/HCPCS: 74176

== ENCOUNTER → 2022-09-16 | Outpatient (CLI) | payer MEDICARE, BC ==
[2022-09-17 00:22] LABS: Basophils # (A) 0.02 X 10*3/uL (0.00-0.10); Basophils % (A) 0.3 %; Eosinophils # (A) 0.17 X 10*3/uL (0.04-0.35); Eosinophils % (A) 2.8 %; HCT 41.2 % (39.6-50.0); Immature Grans, Automated 0.2 %; Lymphocytes # (A) 1.69 X 10*3/uL (0.90-5.00); Lymphocytes % (A) 27.4 %; MCH 30.9 pg (27.0-32.0); MCHC 31.6 g/dL (32.0-37.0); MCV 97.9 fL (80.0-97.0); Mean Platelet Volume 10.4 fL (9.5-12.2); Monocytes # (A) 0.54 X 10*3/uL (0.20-1.00); Monocytes % (A) 8.8 %; NRBC Per 100 WBC 0 /100 WBCS (0.0-0.0); Neutrophils # (A) 3.73 X 10*3/uL (1.80-7.70); Neutrophils % (A) 60.5 %; Platelet Count 253 X 10*3/uL (140-440); RBC 4.21 X 10*6/uL (4.40-5.60); RDW 13.1 % (11.5-14.5); WBC 6.16 X 10*3/uL (4.50-10.00)
[2022-09-17 00:30] LABS: African American GFR (CKD) 51.3 (60.0-200.0); Anion Gap 10.5 mmol/L (10.00-18.00); BUN/Creat Ratio 12.8 Ratio (12.00-20.00); Blood Urea Nitrogen 19.2 mg/dL (9.0-27.0); Calcium 9.7 mg/dL (8.7-10.3); Carbon Dioxide 26.5 mmol/L (20.0-27.5); Non-African American GFR(CKD) 44.3 (60.0-200.0); Potassium 4.5 mmol/L (3.5-5.5)
== END | disposition home or self-care (01) ==
LOC: LABPAT 09:34
PROVIDERS: ATTEND Urology
DX: Z01.812 Encounter for preprocedural laboratory examination (principal); N20.1 Calculus of ureter
CPT/HCPCS: 80048; 85025

== ENCOUNTER 2022-09-22 10:19 | Day surgery (SDC) | payer MEDICARE, BC ==
--- NOTE | 2022-09-20 07:22 | P.GSHP ---
History of Present Illness H&P Date: 09/20/22 Chief Complaint: Ureteral calculi The patient is a 76-year-old white male with a history of prostate cancer, treated with radiation therapy in 2016. He also has a history of kidney stones. Recent CT scan shows a nonobstructing 8 mm right proximal ureteral calculus, and severe left hydronephrosis due to an 11-12 mm left distal ureteral calculus. He was also found to have an 8 mm left lower pole renal calculus. His renal failure has been exacerbated, presumably due to ureteral obstruction. Alternative treatment options were reviewed, and he has elected to undergo ureteroscopic removal of the calculi. - Constitutional Constitutional: Denies chills, Denies fever - Genitourinary (Male) Genitourinary: Denies dysuria, Denies flank pain, Denies hematuria Past Medical History Past Medical History: Diabetes Mellitus, Hyperlipidemia, Osteoarthritis (OA), Sleep Apnea/CPAP/BIPAP Additional Past Medical History / Comment(s): USES CPAP. FAILED STRESS TEST. SEASONAL ALLERGIES. CHRONIC BACK PAIN. History of Any Multi-Drug Resistant Organisms: None Reported Past Surgical History: Back Surgery Additional Past Surgical History / Comment(s): BACK SURGERY TIMES 2. Past Anesthesia/Blood Transfusion Reactions: No Reported Reaction Past Psychological History: No Psychological Hx Reported Smoking Status: Never smoker Past Alcohol Use History: None Reported Past Drug Use History: None Reported - Past Family History Father Family Medical History: CVA/TIA Medications and Allergies Home Medications Medication Instructions Recorded Confirmed Type Aspirin 81 mg PO DAILY 02/25/15 03/26/21 History Cholecalciferol [Vitamin D3] 1,000 unit PO DAILY 02/25/15 03/26/21 History Diclofenac Sodium [Voltaren] 75 mg PO DAILY 02/25/15 03/26/21 History Glucosam/Sekou-Msm1/C/Clay/Bosw 1 tab PO DAILY 02/25/15 03/26/21 History [Glucosamine-Chondroitin Tablet] Multivitamins, Thera [Multivitamin] 1 tab PO DAILY 02/25/15 03/26/21 History metFORMIN HCL [Metformin HCl ER] 500 mg PO DAILY 02/25/15 03/26/21 History traMADol HCl [Ultram] 50 mg PO TID PRN 02/25/15 03/26/21 History Ascorbic Acid [Vitamin C] 1,000 mg PO DAILY 03/26/21 03/26/21 History Atorvastatin Calcium [Lipitor] 40 mg PO DAILY 03/26/21 03/26/21 History Ketorolac [Toradol] 10 mg PO Q6HR #15 tab 03/26/21 Rx Tamsulosin [Flomax] 0.4 mg PO DAILY #10 cap 03/26/21 Rx Ondansetron Odt [Zofran Odt] 4 mg PO Q8HR PRN #15 tab 07/08/22 Rx Allergies Allergy/AdvReac Type Severity Reaction Status Date / Time acetaminophen Allergy INCREASED Verified 07/08/22 12:03 LIVER ENZYMES Surgical - Exam - General well developed, well nourished, no distress - Respiratory normal respiratory effort - Abdomen Abdomen: soft, non tender, no guarding, no rigid, no rebound - Genitourinary normal penis with no external lesions, testicles non-tender - Psychiatric oriented to time, oriented to person, oriented to place, speech is normal, memory intact Results - Imaging CT scan - abdomen: report reviewed, image reviewed Assessment and Plan (1) Calculus of kidney Status: Acute Code(s): N20.0 - CALCULUS OF KIDNEY SNOMED Code(s): 41798375 (2) Calculus of ureter Status: Acute Code(s): N20.1 - CALCULUS OF URETER SNOMED Code(s): 69957176 (3) Hydronephrosis with renal and ureteral calculous obstruction Status: Acute Code(s): N13.2 - HYDRONEPHROSIS WITH RENAL AND URETERAL CALCULOUS OBSTRUCTION SNOMED Code(s): 583692923 Plan: Cystoscopy, bilateral ureteroscopy with Holmium laser lithotripsy and stone basketing, bilateral ureteral stent insertion. The procedure has been reviewed in detail with the patient and his . They have been made aware of potential risks, which include anesthesia, bleeding, infection, inability to remove the calculi, and ureteral injury.
[2022-09-20 14:48] VITALS: BMI 37.3
[~2022-09-22 10:19] MED LIST: DEXAMETHASONE SOD PHOSPHATE 4 MG/ML 1 ML VIAL IV ONE; HYDROmorphone 0.5 MG/0.5 ML SYRINGE IVP PRN; MIDAZOLAM 2 MG/2 ML VIAL IV PRN; ONDANSETRON 4 MG/2 ML VIAL IVP ONE
--- NOTE | 2022-09-22 10:46 | XR ---
EXAMINATION TYPE: XR KUB DATE OF EXAM: 09/22/2022 CLINICAL HISTORY: Preoperative TECHNIQUE: KUB images of the abdomen COMPARISON: CT 09/07/2022 FINDINGS: There is moderate gaseous distention of the transverse colon and moderate stool within the right-sided colon. There are also several distended loops of small bowel there are multiple pelvic p hleboliths. Note is made of an obstructing calculus in the distal left ureter on recent CT. Lung base s are clear. There are multilevel degenerative changes of the spine. The lung bases are clear and the osseous structures are intact. IMPRESSION: Multiple pelvic phleboliths, at least one of which may be an obstructing calculus in the distal left ureter as seen on recent CT. Overall bowel gas pattern is nonobstructive, but there is moderate gaseous distention of the transver se colon and moderate stool within the right colon.
[2022-09-22 11:06] VITALS: RESP 16
[2022-09-22 11:13] LABS: Glucose,Whole Blood 122 mg/dL (70-110)
[2022-09-22] MEDS ORDERED: LACTATED RINGERS 1,000 ML IV ONE (11:18)
[2022-09-22] MEDS ORDERED: MIDAZOLAM 2 MG/2 ML VIAL ONE (12:14)
[2022-09-22] MEDS ORDERED: PROPOFOL 10 MG/ML 20 ML VIAL IV ONE (12:14)
[2022-09-22] MEDS ORDERED: SUCCINYLCHOLINE CHLORIDE 200 MG/10 ML VIAL IV ONE (12:14)
[2022-09-22] MEDS ORDERED: fentaNYL (PF) 50 MCG/ML 2 ML AMP ONE (12:14)
[2022-09-22] MEDS ORDERED: IOPAMIDOL-370 50ML BTL MISCELLANE ONE (12:14)
[2022-09-22] MEDS ORDERED: ePHEDrine 50 MG/ML 1 ML VIAL ONE (12:14)
[2022-09-22] MEDS ORDERED: LIDOCAINE 2% INJ 20 MG/ML (2 ML VIAL) ONE (12:14)
--- NOTE | 2022-09-22 15:06 | P.OP ---
Date of Procedure: 09/22/22 Preoperative Diagnosis: Bilateral ureteral calculi, left renal calculus Postoperative Diagnosis: Bilateral ureteral calculi Procedure(s) Performed: Cystoscopy, bilateral retrograde pyelograms, bilateral ureteroscopy with Holmium laser lithotripsy and stone basketing, bilateral ureteral stent insertion Anesthesia: HANANE Surgeon: Param Soler Estimated Blood Loss (ml): 10 IV fluids (ml): 800 Pathology: other (Calculus fragments, sent for chemical analysis) Condition: stable Disposition: PACU Indications for Procedure: The patient is a 76-year-old white male with a history of prostate cancer, treated with radiation therapy in 2016. He also has a history of kidney stones. Recent CT scan shows a nonobstructing 8 mm right proximal ureteral calculus, and severe left hydronephrosis due to an 11-12 mm left distal ureteral calculus. He was also found to have an 8 mm left lower pole renal calculus. His renal failure has been exacerbated, presumably due to ureteral obstruction. Alternative treatment options were reviewed, and he has elected to undergo ureteroscopic removal of the calculi. Operative Findings: Left distal ureteral calculus, right mid ureteral calculus, both removed completely. Debris is seen within dilated left renal calyces, but no renal calculi are seen. Description of Procedure: The patient was taken to the operating room and placed in the dorsolithotomy position, with legs supported in Nehemiah stirrups. The external genitalia was prepped and draped sterilely. The 30 lens was used to introduce the 21-Martiniquais Sousa cystoscopic sheath through the urethra and into the bladder under direct vision. The prostatic urethra showed evidence of mild lateral lobe enlargement. The bladder was examined in its entirety. The right ureteral orifice appeared normal. The left ureteral orifice was somewhat edematous. No tumors or foreign bodies were seen. Using a 10-Martiniquais cone-tipped catheter, bilateral retrograde pyelograms were performed. The left distal ureteral calculus was readily seen, and the ureter proximal to this was significantly dilated. The right ureteral calculus was seen adjacent to the SI joint. The cystoscope was removed, and the Sousa marsha irigid ureteroscope was advanced into the bladder. The left ureteral orifice was cannulated, and the ureteroscope was advanced up to the calculus. The 365 micron Holmium laser probe was passed through the ureteroscope, and lithotripsy was performed. Initially, a dusting mode was utilized with the calculus was very dense, likely composed of calcium oxalate monohydrate, and ultimately a fragmenting mode was used with a 550 holmium laser probe. After fragmenting the calculus, calculus fragments were removed using a 1.9-Martiniquais nitinol basket. Inspection of the ureter showed no evidence of ureteral trauma, and no residual calculus fragments. Right ureteroscopy was performed using the semirigid ureteroscope. The ureteroscope was advanced up to the level of the iliac vessels, but could not be passed up to the calculus. Therefore, a 0.035 inch Glidewire was passed through the ureteroscope and up to the right renal pelvis. The ureteroscope was removed, and an 11/13-Martiniquais ureteral access catheter was passed up to the level of the iliac vessels. The [employer] flexible ureteroscope was then passed through the ureteral access catheter sheath and up to the calculus. A 200 holmium laser probe was used to fragment the calculus, and all calculus fragments were removed using the nitinol basket. Final inspection of the ureter showed no evidence of ureteral trauma, and complete removal of calculus fragments. The Glidewire was passed up to the right renal pelvis. The ureteroscope was removed, and the Glidewire was backloaded into the cystoscope, which was passed into the bladder. A 26 cm, 6-Martiniquais double-J ureteral stent was placed over the wire. Proper stent positioning was verified fluoroscopically and endoscopically. The Glidewire was advanced up to the left renal pelvis, and the ureteral access catheter was passed over the wire, up to the left proximal ureter. The flexible ureteroscope was then passed through the ureteral access catheter sheath and advanced under direct vision up to the left renal pelvis. The calyces were significantly dilated, consistent with significant hydronephrosis. Debris was seen within the calyces, particularly a lower pole calyx, but no calculi were seen. The Glidewire was passed through the ureteroscope, which was withdrawn along with the ureteral access catheter sheath. The Glidewire was backloaded into the cystoscope, which was passed into the bladder. A 26 cm, 6-Martiniquais double-J ureteral stent was placed over the wire. Proper stent positioning was verified fluoroscopically and endoscopically. The bladder was emptied, and all calculus fragments were removed and sent for chemical analysis. The patient tolerated the procedure well and was taken to the recovery room in stable condition. MARCELLA ROCKS Report: Procedure Acuity: Semi-Urgent Stone Size and Location: 12 mm, left distal ureter. 8 mm, right mid ureter. Ureteral Dilation: No Ureteral Access Sheath Used: Yes Stone Sent for Analysis: Yes All Stones/Fragments Were Removed with a Basket: Yes Complications: No Preoperative Antibiotics Given: Yes Stent Placed: Yes If Stent Placed, Was String Left Attached: No If Stent Placed, When is it to be Removed: 3 weeks Discharge Medications: Tamsulosin
[2022-09-22 15:07] VITALS: TEMP 97
[2022-09-22 15:26] LABS: Glucose,Whole Blood 136 mg/dL (70-110)
[2022-09-22] MEDS: LACTATED RINGERS 1,000 ML IV SCH ×2 (15:27→15:39)
--- NOTE | 2022-09-22 15:58 | FL ---
EXAMINATION TYPE: FL urography retrograde DATE OF EXAM: 09/22/2022 FLUOROSCOPY Fluoroscopy time of 1 minute 47 seconds was used during urologic intervention for bilateral ureteral calculi, retrograde injections. 12 image/s document/s the procedure.
[2022-09-22 16:11] VITALS: BP 146/81; PULSE 59
== END 2022-09-22 16:24 | disposition home or self-care (01) ==
LOC: OR 10:19
PROVIDERS: ATTEND Urology
DX: N13.2 Hydronephrosis with renal and ureteral calculous obstruction (principal); E78.5 Hyperlipidemia, unspecified; E11.9 Type 2 diabetes mellitus without complications; M19.90 Unspecified osteoarthritis, unspecified site; G47.30 Sleep apnea, unspecified; Z98.890 Other specified postprocedural states; Z79.82 Long term (current) use of aspirin; Z79.1 Long term (current) use of non-steroidal anti-inflammatories (NSAID); Z79.899 Other long term (current) drug therapy
CPT/HCPCS: 82365; 74420; 74018; 52356; C2625; C1758; C1769; J2250; J0330; J1100; J0690; J2405; J3010; J2704; Q9967; J2001

== ENCOUNTER 2022-12-24 14:19 | Emergency (ER) | payer MEDICARE, BC ==
[2022-12-24 14:26] VITALS: RESP 16; TEMP 97.6
[2022-12-24] MEDS ORDERED: SODIUM CHLORIDE 0.9% 500 ML 500 ML IV STA (14:46)
[2022-12-24 15:10] LABS: Basophils % (A) 0 %; Eosinophils # (A) 0.1 k/uL (0-0.7); Eosinophils % (A) 1 %; HCT 40.5 % (39.0-53.0); HGB 13.7 gm/dL (13.0-17.5); Lymphocytes % (A) 13 %; MCH 31.4 pg (25.0-35.0); MCHC 33.8 g/dL (31.0-37.0); MCV 92.8 fL (80.0-100.0); Mean Platelet Volume 7.4; Monocytes # (A) 0.3 k/uL (0-1.0); Monocytes % (A) 4 %; Neutrophils # (A) 5.9 k/uL (1.3-7.7); Neutrophils % (A) 79 %; Platelet Count 247 k/uL (150-450); RBC 4.36 m/uL (4.30-5.90); RDW 13.5 % (11.5-15.5); WBC 7.5 k/uL (3.8-10.6)
[2022-12-24 15:19] LABS: Albumin 4.4 g/dL (3.5-5.0); Calcium 9.6 mg/dL (8.4-10.2); Potassium 5.1 mmol/L (3.5-5.1); Total Bilirubin 0.9 mg/dL (0.2-1.3); Total Protein 7.4 g/dL (6.3-8.2)
--- NOTE | 2022-12-24 15:29 | ED ---
Abdominal Pain HPI - General Chief Complaint: Abdominal Pain Stated Complaint: Abd Pain Time Seen by Provider: 12/24/22 14:46 Source: patient, RN notes reviewed Mode of arrival: wheelchair Limitations: no limitations - History of Present Illness Initial Comments: 77-year-old male presents emergency Department chief complaint left-sided abdominal pain. Patient states started earlier today states is sharp cramping type pain in his left lower quadrant. Patient states she does have a history kidney stones states she had surgery for is not long ago. Patient denies fevers or chills he did have some nausea, pain that was not alleviated with anything. Patient denies any history of diverticulitis states he did have a bowel movement this morning which changes symptoms. Patient denies dysuria or known normal hematuria. - Related Data Home Medications Medication Instructions Recorded Confirmed Aspirin 81 mg PO DAILY 02/25/15 09/22/22 Diclofenac Sodium [Voltaren] 75 mg PO DAILY 02/25/15 09/22/22 Glucosam/Sekou-Msm1/C/Clay/Bosw 1 tab PO DAILY 02/25/15 09/22/22 [Glucosamine-Chondroitin Tablet] Multivitamins, Thera [Multivitamin] 1 tab PO DAILY 02/25/15 09/22/22 metFORMIN HCL [Metformin HCl ER] 500 mg PO DAILY 02/25/15 09/22/22 traMADol HCl [Ultram] 50 mg PO TID PRN 02/25/15 09/22/22 Ascorbic Acid [Vitamin C] 1,000 mg PO DAILY 03/26/21 09/22/22 Atorvastatin Calcium [Lipitor] 40 mg PO DAILY 03/26/21 09/22/22 Loratadine 10 mg PO DAILY 09/20/22 09/22/22 Previous Rx's Medication Instructions Recorded Tamsulosin [Flomax] 0.4 mg PO DAILY #30 cap 09/22/22 Ondansetron Odt [Zofran Odt] 4 mg PO Q8HR PRN #10 tab 12/24/22 Allergies Allergy/AdvReac Type Severity Reaction Status Date / Time acetaminophen Allergy INCREASED Verified 12/24/22 14:24 LIVER ENZYMES Review of Systems ROS Statement: Those systems with pertinent positive or pertinent negative responses have been documented in the HPI. ROS Other: All systems not noted in ROS Statement are negative. Past Medical History Past Medical History: Diabetes Mellitus, Hyperlipidemia, Osteoarthritis (OA), Sleep Apnea/CPAP/BIPAP Additional Past Medical History / Comment(s): USES CPAP. FAILED STRESS TEST. SEASONAL ALLERGIES. CHRONIC BACK PAIN. History of Any Multi-Drug Resistant Organisms: None Reported Past Surgical History: Back Surgery Additional Past Surgical History / Comment(s): BACK SURGERY TIMES 2. Past Anesthesia/Blood Transfusion Reactions: No Reported Reaction Past Psychological History: No Psychological Hx Reported Smoking Status: Never smoker Past Alcohol Use History: None Reported Past Drug Use History: None Reported - Past Family History Father Family Medical History: CVA/TIA General Exam Limitations: no limitations General appearance: alert, in no apparent distress Head exam: Present: atraumatic, normocephalic, normal inspection Eye exam: Present: normal appearance, PERRL, EOMI. Absent: scleral icterus, conjunctival injection, periorbital swelling Respiratory exam: Present: normal lung sounds bilaterally. Absent: respiratory distress, wheezes, rales, rhonchi, stridor Cardiovascular Exam: Present: normal rhythm, bradycardia, normal heart sounds. Absent: systolic murmur, diastolic murmur, rubs, gallop, clicks GI/Abdominal exam: Present: soft, tenderness (Left lower quadrant), normal bowel sounds. Absent: distended, guarding, rebound, rigid Neurological exam: Present: alert Skin exam: Present: warm, dry, intact, normal color. Absent: rash Course Vital Signs 12/24/22 12/24/22 14:24 16:15 Temperature 97.6 F Pulse Rate 48 L 50 L Respiratory 16 16 Rate Blood Pressure 164/78 134/72 O2 Sat by Pulse 95 96 Oximetry Medical Decision Making - Medical Decision Making Was pt. sent in by a medical professional or institution (, PA, RETORT FURNACE OPERATOR, urgent care, hospital, or skilled nursing...) When possible be specific @ -No Did you speak to anyone other than the patient for history (EMS, parent, family, police, friend...)? What history was obtained from this source @ -No Did you review nursing and triage notes (agree or disagree)? Why? @ -I reviewed and agree with nursing and triage notes Were old charts reviewed (outside hosp., previous admission, EMS record, old EKG, old radiological studies, urgent care reports/EKG's, skilled nursing records)? Report findings @ -No old charts were reviewed Differential Diagnosis (chest pain, altered mental status, abdominal pain women, abdominal pain men, vaginal bleeding, weakness, fever, dyspnea, syncope, headache, dizziness, GI bleed, back pain, seizure, CVA, palpatations, mental health, musculoskeletal)? @ -[Differential Abdominal Pain Men: Appendicitis, cholecystitis, diverticulosis, ischemic bowel, pancreatitis, hepatitis, UTI, gastroenteritis, AAA, incarcerated hernia, bowel obstruction, constipation, inflammatory bowel, hepatitis, peptic ulcer disease, splenic infarction, perforated viscus, testicular torsion, this is not meant to be an all-inclusive list EKG interpreted by me (3pts min.). @ -[None X-rays interpreted by me (1pt min.). @ -None done CT interpreted by me (1pt min.). @ -CT shows 2 stones within the ureter, no other acute processes. U/S interpreted by me (1pt. min.). @ -None done What testing was considered but not performed or refused? (CT, X-rays, U/S, labs)? Why? @ -None What meds were considered but not given or refused? Why? @ -None Did you discuss the management of the patient with other professionals (professionals i.e. , PA, RETORT FURNACE OPERATOR, lab, RT, psych nurse, forensic social worker, broach operator, teacher, marketing and communications officer, counseling case manager)? Give summary @ -No Was smoking cessation discussed for >3mins.? @ -No Was critical care preformed (if so, how long)? @ -No Were there social determinants of health that impacted care today? How? (Homelessness, low income, unemployed, alcoholism, drug addiction, transportation, low edu. Level, literacy, decrease access to med. care, longterm, rehab)? @ -No Was there de-escalation of care discussed even if they declined (Discuss DNR or withdrawal of care, Hospice)? DNR status @ -No What co-morbidities impacted this encounter? (DM, HTN, Smoking, COPD, CAD, Cancer, CVA, ARF, Chemo, Hep., AIDS, mental health diagnosis, sleep apnea, morbid obesity)? @ -None Was patient admitted / discharged? Hospital course, mention meds given and route, prescriptions, significant lab abnormalities, going to OR and other pertinent info. @ -Discharge patient has ureter calculi patient be discharged in stable condition pain is improved. Undiagnosed new problem with uncertain prognosis? @ -No Drug Therapy requiring intensive monitoring for toxicity (Heparin, Nitro, Insulin, Cardizem)? @ -No Were any procedures done? @ -No Diagnosis/symptom? @ -Ureteral calculi Acute, or Chronic, or Acute on Chronic? @ -Acute Uncomplicated (without systemic symptoms) or Complicated (systemic symptoms)? @ -Uncomplicated Side effects of treatment? @ -No Exacerbation, Progression, or Severe Exacerbation? @ -No Poses a threat to life or bodily function? How? (Chest pain, USA, PR, pneumonia, PE, COPD, DKA, ARF, appy, cholecystitis, CVA, Diverticulitis, Homicidal, Suicidal, threat to staff... and all critical care pts) @ -No - Lab Data Result diagrams: 12/24/22 15:03 12/24/22 15:03 Lab Results 12/24/22 12/24/22 12/24/22 Range/Units 15:03 15:03 15:03 WBC 7.5 (3.8-10.6) k/uL RBC 4.36 (4.30-5.90) m/uL Hgb 13.7 (13.0-17.5) gm/dL Hct 40.5 (39.0-53.0) % MCV 92.8 (80.0-100.0) fL MCH 31.4 (25.0-35.0) pg MCHC 33.8 (31.0-37.0) g/dL RDW 13.5 (11.5-15.5) % Plt Count 247 (150-450) k/uL MPV 7.4 Neutrophils % 79 % Lymphocytes % 13 % Monocytes % 4 % Eosinophils % 1 % Basophils % 0 % Neutrophils # 5.9 (1.3-7.7) k/uL Lymphocytes # 1.0 (1.0-4.8) k/uL Monocytes # 0.3 (0-1.0) k/uL Eosinophils # 0.1 (0-0.7) k/uL Basophils # 0.0 (0-0.2) k/uL Sodium 138 (137-145) mmol/L Potassium 5.1 (3.5-5.1) mmol/L Chloride 104 (98-107) mmol/L Carbon Dioxide 26 (22-30) mmol/L Anion Gap 8 mmol/L BUN 26 H (9-20) mg/dL Creatinine 1.76 H (0.66-1.25) mg/dL Est GFR (CKD-EPI)AfAm 42 (>60 ml/min/1.73 sqM) Est GFR (CKD-EPI)NonAf 36 (>60 ml/min/1.73 sqM) Glucose 127 H (74-99) mg/dL Plasma Lactic Acid Paco (0.7-2.0) mmol/L Calcium 9.6 (8.4-10.2) mg/dL Total Bilirubin 0.9 (0.2-1.3) mg/dL AST 32 (17-59) U/L ALT 32 (4-49) U/L Alkaline Phosphatase 57 (38-126) U/L Total Protein 7.4 (6.3-8.2) g/dL Albumin 4.4 (3.5-5.0) g/dL Amylase 81 (30-110) U/L Lipase 212 (23-300) U/L Urine Color Yellow Urine Appearance Cloudy (Clear) Urine pH 5.0 (5.0-8.0) Ur Specific [place] 1.019 (1.001-1.035) Urine Protein Trace H (Negative) Urine Glucose (UA) Negative (Negative) Urine Ketones Negative (Negative) Urine Blood Small H (Negative) Urine Nitrite Negative (Negative) Urine Bilirubin Negative (Negative) Urine Urobilinogen <2.0 (<2.0) mg/dL Ur Leukocyte Esterase Negative (Negative) Urine RBC 64 H (0-5) /hpf Urine WBC 3 (0-5) /hpf Amorphous Sediment Rare H (None) /hpf Urine Mucus Rare H (None) /hpf 12/24/22 Range/Units 15:03 WBC (3.8-10.6) k/uL RBC (4.30-5.90) m/uL Hgb (13.0-17.5) gm/dL Hct (39.0-53.0) % MCV (80.0-100.0) fL MCH (25.0-35.0) pg MCHC (31.0-37.0) g/dL RDW (11.5-15.5) % Plt Count (150-450) k/uL MPV Neutrophils % % Lymphocytes % % Monocytes % % Eosinophils % % Basophils % % Neutrophils # (1.3-7.7) k/uL Lymphocytes # (1.0-4.8) k/uL Monocytes # (0-1.0) k/uL Eosinophils # (0-0.7) k/uL Basophils # (0-0.2) k/uL Sodium (137-145) mmol/L Potassium (3.5-5.1) mmol/L Chloride (98-107) mmol/L Carbon Dioxide (22-30) mmol/L Anion Gap mmol/L BUN (9-20) mg/dL Creatinine (0.66-1.25) mg/dL Est GFR (CKD-EPI)AfAm (>60 ml/min/1.73 sqM) Est GFR (CKD-EPI)NonAf (>60 ml/min/1.73 sqM) Glucose (74-99) mg/dL Plasma Lactic Acid Paco 1.4 (0.7-2.0) mmol/L Calcium (8.4-10.2) mg/dL Total Bilirubin (0.2-1.3) mg/dL AST (17-59) U/L ALT (4-49) U/L Alkaline Phosphatase (38-126) U/L Total Protein (6.3-8.2) g/dL Albumin (3.5-5.0) g/dL Amylase (30-110) U/L Lipase (23-300) U/L Urine Color Urine Appearance (Clear) Urine pH (5.0-8.0) Ur Specific [place] (1.001-1.035) Urine Protein (Negative) Urine Glucose (UA) (Negative) Urine Ketones (Negative) Urine Blood (Negative) Urine Nitrite (Negative) Urine Bilirubin (Negative) Urine Urobilinogen (<2.0) mg/dL Ur Leukocyte Esterase (Negative) Urine RBC (0-5) /hpf Urine WBC (0-5) /hpf Amorphous Sediment (None) /hpf Urine Mucus (None) /hpf Disposition Clinical Impression: Calculus of ureter Disposition: HOME SELF-CARE Condition: Stable Instructions (If sedation given, give patient instructions): Kidney Stones (ED) Additional Instructions: Please return to the Emergency Department if symptoms worsen or any other concerns. Prescriptions: Ondansetron Odt [Zofran Odt] 4 mg PO Q8HR PRN #10 tab PRN Reason: Nausea Is patient prescribed a controlled substance at d/c from ED?: No Referrals: Gabo Guy MD [Primary Care Provider] - 1-2 days Param Soler MD [Family Provider] - 1-2 days Time of Disposition: 16:29
--- NOTE | 2022-12-24 16:01 | CT ---
EXAMINATION TYPE: CT abdomen pelvis wo con DATE OF EXAM: 12/24/2022 COMPARISON: 09/07/2022 HISTORY: flank and inguinal pain CT DLP: 1756.4 mGycm Automated exposure control for dose reduction was used. TECHNIQUE: Helical acquisition of images was performed from the lung bases through the pelvis. FINDINGS: Lung bases are clear. There is no organomegaly involving the solid visceral organs of the upper abdomen. The gallbladder is normal without gallstones, wall thickening, distention or pericholecystic fluid. T here is no biliary ductal dilatation. There is marked hydronephrosis and hydroureter. There are 2, 4 -5 mm calcifications in the distal ri ght ureter just proximal to the right UVJ. There are 3 additional calcifications in the right kidney, the 2 largest are approximately 5 mm in size. There are 2 calcifications in the left kidney largest of which is approximately 10.3 mm. The second calcification is 1 to 2 mm. The caliber the abdominal aorta is normal and there is no retroperitoneal adenopathy or hemorrhage. The bowel loops are normal in caliber and there is no dilatation or obstruction. There is no free int raperitoneal air or fluid. There is no pelvic mass free fluid or adenopathy. There are bilateral inguinal hernias containing fat . Visualized osseous structures are intact. IMPRESSION: 1. Marked right hydronephrosis secondary to two, 4 - 5 mm calcifications in the distal right ureter just proximal to the right UVJ. 2. Additional bilateral renal calcifications as described above. 3. Bilateral inguinal hernias containing fat.
[2022-12-24] MEDS ORDERED: ONDANSETRON 4 MG/2 ML VIAL IVP STA (16:20)
[2022-12-24 16:21] VITALS: BP 134/72; PULSE 50
[2022-12-24 16:21] LABS: Amorphous Sediment,Urine Rare /hpf; Appearance,Urine Cloudy (Clear); Bilirubin,Urine Negative (Negative); Blood,Urine Small (Negative); Color,Urine Yellow; Glucose,Urine (UA) Negative (Negative); Ketones,Urine Negative (Negative); Leukocyte Esterase,Urine Negative (Negative); Mucus,Urine Rare /hpf; Nitrite,Urine Negative (Negative); Protein,Urine Trace (Negative); RBC,Urine 64 /hpf (0-5); Specific Gravity,Urine 1.019 (1.001-1.035); Urobilinogen,Urine <2.0 mg/dL (<2.0); WBC,Urine 3 /hpf (0-5)
[2022-12-24] MEDS ORDERED: ACET/COD 300 MG/30 MG STARTER PACK 6 TAB BTL PO STA (16:33)
== END 2022-12-24 16:45 | disposition home or self-care (01) ==
LOC: EC 14:19
DX: N20.1 Calculus of ureter (principal); E11.9 Type 2 diabetes mellitus without complications; E78.5 Hyperlipidemia, unspecified; G47.30 Sleep apnea, unspecified; M19.90 Unspecified osteoarthritis, unspecified site; Z79.1 Long term (current) use of non-steroidal anti-inflammatories (NSAID); Z79.82 Long term (current) use of aspirin; Z79.899 Other long term (current) drug therapy; Z88.8 Allergy status to other drugs, medicaments and biological substances
CPT/HCPCS: 36415; 80053; 82150; 83605; 83690; 85025; 81001; 74176; 99284; 96374; J2405

== ENCOUNTER 2023-01-04 07:21 | Day surgery (SDC) | payer MEDICARE, BC ==
[2022-12-29 16:14] VITALS: BMI 38.6
--- NOTE | 2023-01-03 18:45 | P.GSHP ---
History of Present Illness H&P Date: 01/03/23 Chief Complaint: Right hydronephrosis The patient is a 76-year-old white male with a history of prostate cancer, treated with radiation therapy in 2015. He also has a history of kidney stones. CT scan late last year showed a nonobstructing 8 mm right proximal ureteral calculus, and severe left hydronephrosis due to an 11-12 mm left distal ureteral calculus. He was also found to have an 8 mm left lower pole renal calculus. His renal failure was exacerbated, presumably due to ureteral obstruction. Alternative treatment options were reviewed, and he underwent ureteroscopic removal of the calculi. He underwent ureteroscopic removal of the ureteral calculi in August 2022, but recent CT scan shows marked right hydronephrosis due to 2 right distal ureteral calculi, measuring 4-5 mm each. Additionally, right renal calculi were seen measuring up to 5 mm in size. - Constitutional Constitutional: Denies chills, Denies fever - Gastrointestinal Gastrointestinal: Reports nausea, Denies vomiting - Genitourinary (Male) Genitourinary: Reports flank pain, Reports kidney stones, Denies hematuria Past Medical History Past Medical History: Diabetes Mellitus, Hyperlipidemia, Osteoarthritis (OA), Sleep Apnea/CPAP/BIPAP Additional Past Medical History / Comment(s): USES CPAP. FAILED STRESS TEST. SEASONAL ALLERGIES. CHRONIC BACK PAIN. History of Any Multi-Drug Resistant Organisms: None Reported Past Surgical History: Back Surgery Additional Past Surgical History / Comment(s): BACK SURGERY TIMES 2, Left hydrocele repair October 2022 Past Anesthesia/Blood Transfusion Reactions: No Reported Reaction Past Psychological History: No Psychological Hx Reported Smoking Status: Never smoker Past Alcohol Use History: None Reported Past Drug Use History: None Reported - Past Family History Father Family Medical History: CVA/TIA Medications and Allergies Home Medications Medication Instructions Recorded Confirmed Type Aspirin 81 mg PO DAILY 02/25/15 12/29/22 History Diclofenac Sodium [Voltaren] 75 mg PO DAILY 02/25/15 12/29/22 History Glucosam/Sekou-Msm1/C/Clay/Bosw 1 tab PO DAILY 02/25/15 12/29/22 History [Glucosamine-Chondroitin Tablet] Multivitamins, Thera [Multivitamin] 1 tab PO DAILY 02/25/15 12/29/22 History metFORMIN HCL [Metformin HCl ER] 500 mg PO DAILY 02/25/15 12/29/22 History traMADol HCl [Ultram] 50 mg PO TID PRN 02/25/15 12/29/22 History Ascorbic Acid [Vitamin C] 1,000 mg PO DAILY 03/26/21 12/29/22 History Atorvastatin Calcium [Lipitor] 40 mg PO DAILY 03/26/21 12/29/22 History Loratadine 10 mg PO DAILY 09/20/22 12/29/22 History Losartan [Cozaar] 50 mg PO DAILY 12/29/22 12/29/22 History Allergies Allergy/AdvReac Type Severity Reaction Status Date / Time acetaminophen Allergy INCREASED Verified 12/29/22 16:00 LIVER ENZYMES Surgical - Exam - General well developed, well nourished, no distress - Respiratory normal respiratory effort - Abdomen Abdomen: soft, non tender, no guarding, no rigid, no rebound - Genitourinary Normal phallus, normal urethral meatus. The testes are normal. A left hydrocele is noted. - Psychiatric oriented to time, oriented to person, oriented to place, speech is normal, memory intact Results - Imaging CT scan - abdomen: report reviewed, image reviewed Assessment and Plan (1) Calculus of ureter Status: Acute Code(s): N20.1 - CALCULUS OF URETER SNOMED Code(s): 98070248 (2) Calculus of kidney Status: Acute Code(s): N20.0 - CALCULUS OF KIDNEY SNOMED Code(s): 71243370 (3) Hydrocele, unspecified Status: Acute Code(s): N43.3 - HYDROCELE, UNSPECIFIED SNOMED Code(s): 26167653 Plan: Cystoscopy, right ureteroscopy with Holmium laser lithotripsy and possible stone basketing, right ureteral stent insertion. The patient is aware of potential risks, which include anesthesia, bleeding, infection, ureteral injury, and inability to remove the calculi. The left hydrocele will be aspirated at that time.
[~2023-01-04 07:21] MED LIST changes: +LACTATED RINGERS 1,000 ML IV SCH; -MIDAZOLAM 2 MG/2 ML VIAL IV PRN; +ceFAZolin 3 GM in SODIUM CHLORIDE 0.9% 100 ML IVPB PRN
--- NOTE | 2023-01-04 07:49 | XR ---
EXAMINATION TYPE: XR KUB DATE OF EXAM: 01/04/2023 COMPARISON: 09/22/2022 HISTORY: Left hydrocele, right renal ureteral TECHNIQUE: Abdomen is examined in the frontal projection FINDINGS: Nonspecific small bowel gas is present. Colonic bowel gas is present. Fecal debris is prese nt. Renal stones are not identified. Phleboliths within the pelvis. Psoas margins are normal. Hepatomegaly is evident. IMPRESSION: 1. Nonspecific abdomen.
[2023-01-04 08:11] VITALS: TEMP 97
[2023-01-04 08:17] LABS: Glucose,Whole Blood 139 mg/dL (70-110)
[2023-01-04] MEDS ORDERED: GLYCOPYRROLATE 0.2 MG/ML 2 ML VIAL ONE (08:50)
[2023-01-04] MEDS ORDERED: PROPOFOL 10 MG/ML 20 ML VIAL IV ONE (08:50)
[2023-01-04] MEDS ORDERED: LIDOCAINE 2% INJ 20 MG/ML (2 ML VIAL) ONE (08:50)
[2023-01-04] MEDS ORDERED: ePHEDrine 50 MG/ML 1 ML VIAL ONE (08:50)
[2023-01-04] MEDS ORDERED: fentaNYL (PF) 50 MCG/ML 2 ML AMP ONE (08:50)
[2023-01-04] MEDS ORDERED: ROCURONIUM 10 MG/ML (5 ML VIAL) IV ONE (08:50)
[2023-01-04] MEDS ORDERED: NEOSTIGMINE 1 MG/ML 10 ML VIAL ONE (08:50)
[2023-01-04] MEDS ORDERED: SUCCINYLCHOLINE CHLORIDE 200 MG/10 ML VIAL IV ONE (08:50)
[2023-01-04] MEDS ORDERED: MIDAZOLAM 2 MG/2 ML VIAL ONE (08:50)
[2023-01-04] MEDS ORDERED: IOPAMIDOL-370 100ML BTL MISCELLANE ONE (09:16)
[2023-01-04 10:35] VITALS: RESP 16
[2023-01-04 10:54] LABS: Glucose,Whole Blood 147 mg/dL (70-110)
--- NOTE | 2023-01-04 11:20 | FL ---
Intraoperative/procedural fluoroscopic services were provided. Total fluoroscopy time is 30 seconds w ith a total of 12 submitted images to PACS. Please see the operative/procedural note for further deta ils. DAP: 9.0047
[2023-01-04 11:50] VITALS: BP 136/66; PULSE 51
--- NOTE | 2023-01-04 14:08 | P.OP ---
Date of Procedure: 01/04/23 Preoperative Diagnosis: Right ureteral calculi, bilateral renal calculi, left hydrocele Postoperative Diagnosis: Bilateral renal calculi Procedure(s) Performed: Cystoscopy, right retrograde pyelogram, bilateral ureteroscopy with Holmium laser lithotripsy, right ureteral stone basketing, bilateral ureteral stent insertion, aspiration of left hydrocele Anesthesia: HANANE Surgeon: Param Soler Estimated Blood Loss (ml): 0 IV fluids (ml): 700 Condition: stable Disposition: PACU Indications for Procedure: The patient is a 76-year-old white male with a history of prostate cancer, treated with radiation therapy in 2015. He also has a history of kidney stones. CT scan late last year showed a nonobstructing 8 mm right proximal ureteral calculus, and severe left hydronephrosis due to an 11-12 mm left distal ureteral calculus. He was also found to have an 8 mm left lower pole renal calculus. His renal failure was exacerbated, presumably due to ureteral obstruction. Alternative treatment options were reviewed, and he underwent ureteroscopic removal of the calculi. He underwent ureteroscopic removal of the ureteral calculi in August 2022, but recent CT scan shows marked right hydronephrosis due to 2 right distal ureteral calculi, measuring 4-5 mm each. Additionally, right renal calculi were seen measuring up to 5 mm in size. Operative Findings: No ureteral calculi. Several small right renal calculi, fragmented and stone basketing. Numerous tiny left lower pole renal calculi, all measuring 1 mm or smaller in size. No fluid aspirated from suspected left hydrocele. Description of Procedure: The patient was taken to the operating room and placed in the dorsolithotomy position, with legs supported in Nehemiah stirrups. The external genitalia was prepped and draped sterilely. An 18-gauge needle was placed within the left hemiscrotum, but no fluid could be aspirated. The 30 lens was used to introduce the 21-Micronesian Sousa cystoscopic sheath through the urethra and into the bladder under direct vision. The prostatic urethra showed evidence of mild lateral lobe enlargement. The bladder was examined in its entirety. Both ureteral orifices were normal anatomic location and configuration, and clear urine effluxed from both. No tumors or foreign bodies were seen. Using a 10-Micronesian cone-tipped catheter, a right retrograde pyelogram was performed. No calculi were seen within the course of the ureter, which was normal. There was no hydronephrosis. The Sousa semirigid ureteroscope was advanced into the bladder, and the right ureteral orifice was cannulated. The ureteroscope was advanced up to the level of the iliac vessels, and no calculi were seen. A 0.038 inch Glidewire was passed through the ureteroscope and up to the right renal pelvis. The ureteroscope was removed, and an 11/13-Micronesian ureteral access catheter was passed over the wire, up to the proximal ureter. The Sousa Boa flexible ureteroscope was then passed through the ureteral access catheter sheath, up to the renal pelvis. Each calyx was examined. Multiple small calculi were seen within a right lower pole calyx. A 1.5-Micronesian nitinol basket was used to remove the smaller calculi. The 200 micron Holmium laser probe was passed through the ureteroscope, and lithotripsy was performed to treat the larger calculi. This was done using a combination of dusting and fragmenting, and several fragments were removed using the nitinol basket. The only remaining fragments at this time were less than 1 mm in diameter. The Glidewire was passed through the ureteral access catheter sheath, which was removed. The Glidewire was backloaded into the cystoscope, which was passed into the bladder. A 28 cm, 4.8-Micronesian double-J ureteral stent was placed over the wire. Proper stent positioning was verified fluoroscopically and endoscopically. An identical procedure was performed on the left side. However, the only calculi seen were located within a lower pole calyx, these measuring 1 mm or smaller in size and round in shape. Using the holmium laser, popcorning was performed within the calyx and an attempt to convert the tiny calculi to dust which might be more likely to pass. Again, the Glidewire was placed after removing the ureteroscope, and a stent was placed over the wire. The stent was confirmed to be in proper position. The removed calculus fragments were sent for chemical analysis. The bladder was emptied and the cystoscope removed. The patient tolerated the procedure well and was taken to the recovery room in stable condition. [facility] Report: Procedure Acuity: Semi-urgent Stone Size and Location: 5 mm, right lower pole Ureteral Dilation: No Ureteral Access Sheath Used: Yes Stone Sent for Analysis: Yes All Stones/Fragments Were Removed with a Basket: No Complications: No Preoperative Antibiotics Given: Yes Stent Placed: Yes If Stent Placed, Was String Left Attached: No If Stent Placed, When is it to be Removed: 1 week
== END 2023-01-04 12:17 | disposition home or self-care (01) ==
LOC: OR 07:21
PROVIDERS: ATTEND Urology
DX: N13.2 Hydronephrosis with renal and ureteral calculous obstruction (principal); N43.3 Hydrocele, unspecified; E11.9 Type 2 diabetes mellitus without complications; E78.5 Hyperlipidemia, unspecified; M19.90 Unspecified osteoarthritis, unspecified site; G47.33 Obstructive sleep apnea (adult) (pediatric); Z99.89 Dependence on other enabling machines and devices; Z98.890 Other specified postprocedural states; Z79.82 Long term (current) use of aspirin; Z79.899 Other long term (current) drug therapy; Z79.84 Long term (current) use of oral hypoglycemic drugs; Z88.8 Allergy status to other drugs, medicaments and biological substances
CPT/HCPCS: 82365; 74018; 52356; 74420; C2625; C1758; C1769; J2250; J0330; J1100; J2710; J0690; J2405; J3010; J2704; Q9967; J2001

== ENCOUNTER → 2023-01-17 | Outpatient (CLI) | payer MEDICARE, BC ==
[2023-01-17 11:14] LABS: HCT 40.2 % (39.6-50.0); HGB 12.8 g/dL (13.0-17.0); MCH 30.6 pg (27.0-32.0); MCHC 31.8 g/dL (32.0-37.0); MCV 96.2 fL (80.0-97.0); Mean Platelet Volume 9.9 fL (9.5-12.2); NRBC Per 100 WBC 0 /100 WBCS (0.0-0.0); Platelet Count 279 X 10*3/uL (140-440); RBC 4.18 X 10*6/uL (4.40-5.60); RDW 13.1 % (11.5-14.5); WBC 7.93 X 10*3/uL (4.50-10.00)
[2023-01-17 14:28] LABS: African American GFR (CKD) 37.3 (60.0-200.0); Albumin 4.8 g/dL (3.8-4.9); Albumin/Globulin Ratio 1.86 (1.60-3.17); Anion Gap 13.8 mmol/L (10.00-18.00); BUN/Creat Ratio 17.11 Ratio (12.00-20.00); Blood Urea Nitrogen 33.2 mg/dL (9.0-27.0); Calcium 10.1 mg/dL (8.7-10.3); Carbon Dioxide 23.5 mmol/L (20.0-27.5); Globulin 2.6 g/dL (1.6-3.3); Non-African American GFR(CKD) 32.2 (60.0-200.0); Potassium 5.7 mmol/L (3.5-5.5); Total Bilirubin 0.8 mg/dL (0.30-1.20); Total Protein 7.4 g/dL (6.2-8.2)
[2023-01-17 14:44] LABS: Phosphorus 4.3 mg/dL (2.4-5.1)
[2023-01-17 19:19] LABS: Appearance,Urine Clear (Clear); Bilirubin,Urine Negative (Negative); Blood,Urine Negative (Negative); Color,Urine Dark Yellow (Yellow); Ketones,Urine Trace mg/dL (Negative); Nitrite,Urine Negative (Negative); Specific Gravity,Urine 1.023 (1.001-1.030); Urobilinogen,Urine 0.2 (0.2,1.0)
[2023-01-17 20:09] LABS: Bacteria,Urine None Seen /HPF (None Seen); Calcium Oxalate Crystals,Urine Present /LPF (None Seen); Sperm,Urine Present /LPF (None Seen); Uric Acid Crystals,Urine Present /LPF (None Seen)
== END | disposition home or self-care (01) ==
LOC: LABWHC1 06:55
PROVIDERS: ATTEND Internal Medicine Nephrology
DX: N18.32 Chronic kidney disease, stage 3b (principal)
CPT/HCPCS: 36415; 80053; 81001; 84100; 85027

== ENCOUNTER → 2023-01-18 | Outpatient (CLI) | payer MEDICARE, BC ==
--- NOTE | 2023-01-19 08:16 | US ---
EXAMINATION TYPE: US scrotum with doppler. Grayscale and color Doppler Duplex imaging performed of t he scrotum. DATE OF EXAM: 01/18/2023 COMPARISON: Prior scrotal ultrasound March 26, 2021 CLINICAL INDICATION: Male, 77 years old with history of N43.3 LT HYDROCELE; edema had surgery to [facility] n hydrocele on left. EXAM MEASUREMENTS: TESTICLES: Right Testicle: 5.0 x 2.5 x 4.6 cm Left Testicle: 3.7 x 2.8 x 3.7 cm EPIDIDYMIS HEAD: Right Epididymis: Not visualized. Left Epididymis: Not visualized. Doppler performed to assess for testicular vascularity; good bilateral color flow and waveforms are s een. . Presence of hydroceles: yes left Presence of varicoceles: no IMPRESSION: Small left scrotal fluid collection or hydrocele similar to prior ultrasound.
== END | disposition home or self-care (01) ==
LOC: RADUSWWP 17:03
PROVIDERS: ATTEND Urology
DX: N43.3 Hydrocele, unspecified (principal)
CPT/HCPCS: 76870; 93975

== ENCOUNTER → 2023-01-24 | Outpatient (CLI) | payer MEDICARE, BC ==
[2023-01-24 15:52] LABS: HCT 38.5 % (39.6-50.0); HGB 12.4 g/dL (13.0-17.0); MCH 30.6 pg (27.0-32.0); MCHC 32.2 g/dL (32.0-37.0); MCV 95.1 fL (80.0-97.0); Mean Platelet Volume 9.8 fL (9.5-12.2); NRBC Per 100 WBC 0 /100 WBCS (0.0-0.0); Platelet Count 274 X 10*3/uL (140-440); RBC 4.05 X 10*6/uL (4.40-5.60); RDW 12.9 % (11.5-14.5); WBC 7.17 X 10*3/uL (4.50-10.00)
[2023-01-24 16:05] LABS: ALT 52 U/L (10-49); AST 43 U/L (14-35); African American GFR (CKD) 43.8 (60.0-200.0); Albumin 4.6 g/dL (3.8-4.9); Alkaline Phosphatase 53 U/L (41-126); BUN/Creat Ratio 16.88 Ratio (12.00-20.00); Blood Urea Nitrogen 28.7 mg/dL (9.0-27.0); Calcium 9.8 mg/dL (8.7-10.3); Carbon Dioxide 26.7 mmol/L (20.0-27.5); Chloride 102 mmol/L (96-109); Chol/HDL Ratio 3.29 Ratio; Globulin 2.3 g/dL (1.6-3.3); Glucose 135 mg/dL (70-110); LDL Cholesterol,Calculated 86.5 mg/dL (0.0-131.0); Non-African American GFR(CKD) 37.8 (60.0-200.0); Potassium 4.9 mmol/L (3.5-5.5); Sodium 140 mmol/L (135-145); Total Protein 6.9 g/dL (6.2-8.2)
== END | disposition home or self-care (01) ==
LOC: LABWHC1 08:51
PROVIDERS: ATTEND Urology
DX: Z12.5 Encounter for screening for malignant neoplasm of prostate (principal); I12.9 Hypertensive chronic kidney disease with stage 1 through stage 4 chronic kidney disease, or unspecified chronic kidney disease; N18.9 Chronic kidney disease, unspecified; E11.22 Type 2 diabetes mellitus with diabetic chronic kidney disease; N20.0 Calculus of kidney; E78.5 Hyperlipidemia, unspecified; G47.33 Obstructive sleep apnea (adult) (pediatric)
CPT/HCPCS: 80061; 80053; 84443; 85027; 83036; 36415; G0103

== ENCOUNTER → 2023-02-12 | Outpatient (CLI) | payer MEDICARE, BC ==
--- NOTE | 2023-02-13 08:36 | US ---
EXAMINATION TYPE: US kidneys/renal and bladder DATE OF EXAM: 02/12/2023 COMPARISON: None CLINICAL INDICATION: Male, 77 years old with history of N18.32 CKD; CKD, history of renal stones EXAM MEASUREMENTS: Right Kidney: 13.0 x 6.9 x 5.6 cm Left Kidney: 12.7 x 5.5 x 4.9 cm Right Kidney: No evidence of hydro, benign cortical cyst mid/lateral= 2.5 x 1.9 x 2.9 cm Left Kidney: No evidence of hydro, benign cortical cysts scattered throughout kidney, largest upper p ole= 2.4 x 1.9 x 3.3 cm. Possible 2 nonobstructive renal calculi at lower pole 1)= 0.7 cm 2)= 1.0 cm Bladder: wnl Bilateral Jets seen: No IMPRESSION: 1. No hydronephrosis on either side. 2. Bilateral benign renal cortical cysts measuring up to 2.9 cm on the right and 3.3 cm on the left. 3. A couple of nonobstructive left renal calculi measuring up to 1 cm.
== END | disposition home or self-care (01) ==
LOC: RADUSWWP 16:05
PROVIDERS: ATTEND Internal Medicine Nephrology
DX: N18.32 Chronic kidney disease, stage 3b (principal); N28.1 Cyst of kidney, acquired; N20.0 Calculus of kidney
CPT/HCPCS: 76770

== ENCOUNTER → 2023-02-20 | Outpatient (CLI) | payer MEDICARE, BC ==
[2023-02-20 21:54] LABS: Appearance,Urine Clear (Clear); Bilirubin,Urine Negative (Negative); Blood,Urine Negative (Negative); Color,Urine Yellow (Yellow); Ketones,Urine Negative (Negative); Nitrite,Urine Negative (Negative); Specific Gravity,Urine 1.024 (1.001-1.030); Urobilinogen,Urine 0.2 (0.2,1.0)
[2023-02-21 03:05] LABS: Basophils # (A) 0.02 X 10*3/uL (0.00-0.10); Basophils % (A) 0.3 %; Eosinophils # (A) 0.18 X 10*3/uL (0.04-0.35); Eosinophils % (A) 2.5 %; HGB 12.3 g/dL (13.0-17.0); Immature Grans, Automated 0.3 %; Lymphocytes # (A) 1.93 X 10*3/uL (0.90-5.00); Lymphocytes % (A) 27.3 %; MCH 31.5 pg (27.0-32.0); MCHC 32.4 g/dL (32.0-37.0); MCV 97.4 fL (80.0-97.0); Mean Platelet Volume 9.7 fL (9.5-12.2); Monocytes # (A) 0.93 X 10*3/uL (0.20-1.00); Monocytes % (A) 13.2 %; NRBC Per 100 WBC 0 /100 WBCS (0.0-0.0); Neutrophils # (A) 3.98 X 10*3/uL (1.80-7.70); Neutrophils % (A) 56.4 %; Platelet Count 283 X 10*3/uL (140-440); WBC 7.06 X 10*3/uL (4.50-10.00)
[2023-02-21 03:27] LABS: % Iron Saturation 13.26 (15.00-50.00); African American GFR (CKD) 51.8 (60.0-200.0); Anion Gap 15.3 mmol/L (10.00-18.00); BUN/Creat Ratio 16.28 Ratio (12.00-20.00); Blood Urea Nitrogen 24.1 mg/dL (9.0-27.0); Calcium 9.3 mg/dL (8.7-10.3); Carbon Dioxide 23.8 mmol/L (20.0-27.5); Magnesium 2.2 mg/dL (1.5-2.4); Non-African American GFR(CKD) 44.7 (60.0-200.0); Phosphorus 5.3 mg/dL (2.4-5.1); Potassium 4.6 mmol/L (3.5-5.5); Uric Acid 6.8 mg/dL (3.7-8.7)
[2023-02-21 04:28] LABS: Albumin 4.4 g/dL (3.8-4.9)
== END | disposition home or self-care (01) ==
LOC: LABWHC1 13:45
PROVIDERS: ATTEND Internal Medicine Nephrology
DX: N25.81 Secondary hyperparathyroidism of renal origin (principal); N18.32 Chronic kidney disease, stage 3b; D63.1 Anemia in chronic kidney disease; E55.9 Vitamin D deficiency, unspecified; M10.9 Gout, unspecified; N39.0 Urinary tract infection, site not specified
CPT/HCPCS: 36415; 80048; 81001; 82040; 82043; 82306; 82570; 82728; 83540; 83550; 83735; 83970; 84100; 84550; 85025

== ENCOUNTER 2023-04-29 11:15 | Emergency (ER) | payer MEDICARE, BC ==
[2023-04-29 11:40] VITALS: RESP 18; TEMP 98.6
[2023-04-29] MEDS ORDERED: hydrALAZINE HCL 20 MG/ML 1 ML VIAL IVP STA (12:07)
--- NOTE | 2023-04-29 12:42 | ED ---
General Adult HPI - General Chief complaint: Headache Stated complaint: headache, hypertension Time Seen by Provider: 04/29/23 11:45 Source: patient Mode of arrival: ambulatory Limitations: no limitations - History of Present Illness Initial comments: This is a 77-year-old male with a past medical history including hypertension, chronic kidney disease and baseline bradycardia presented to the emergency department for a headache as well as elevated blood pressure. The patient stated that he had a headache that began yesterday and did note that his blood pressure was increasing over the last 2 days. The family and the patient had attempted to be seen by service establishment attendant in the office however there were unable to get an appointment. They stated they had no other choice but to come to the emergency department for evaluation. On arrival, the patient stated that he had some pressure in the front portion of his head but denied any blurry vision or lightheadedness. The patient denied any chest pain. The patient also stated that he did not miss any medication doses. The patient was otherwise resting in bed comfortably. - Related Data Home Medications Medication Instructions Recorded Confirmed Aspirin 81 mg PO DAILY 02/25/15 12/29/22 Diclofenac Sodium [Voltaren] 75 mg PO DAILY 02/25/15 12/29/22 Glucosam/Sekou-Msm1/C/Clay/Bosw 1 tab PO DAILY 02/25/15 12/29/22 [Glucosamine-Chondroitin Tablet] Multivitamins, Thera [Multivitamin] 1 tab PO DAILY 02/25/15 12/29/22 metFORMIN HCL [Metformin HCl ER] 500 mg PO DAILY 02/25/15 12/29/22 traMADol HCl [Ultram] 50 mg PO TID PRN 02/25/15 12/29/22 Ascorbic Acid [Vitamin C] 1,000 mg PO DAILY 03/26/21 12/29/22 Atorvastatin Calcium [Lipitor] 40 mg PO DAILY 03/26/21 12/29/22 Loratadine 10 mg PO DAILY 09/20/22 12/29/22 Losartan [Cozaar] 50 mg PO DAILY 12/29/22 12/29/22 Previous Rx's Medication Instructions Recorded Cephalexin [Keflex] 500 mg PO Q6HR #28 cap 04/10/23 HYDROcodone/APAP 10-325MG [[place] 1 tab PO Q6HR PRN 3 Days #12 tab 04/10/23 10-325] Ketorolac [Toradol] 10 mg PO Q8HR #9 tab 04/10/23 Tamsulosin [Flomax] 0.4 mg PO DAILY #7 cap 04/10/23 Allergies Allergy/AdvReac Type Severity Reaction Status Date / Time acetaminophen Allergy INCREASED Verified 04/29/23 11:37 LIVER ENZYMES Review of Systems ROS Statement: Those systems with pertinent positive or pertinent negative responses have been documented in the HPI. ROS Other: All systems not noted in ROS Statement are negative. Past Medical History Past Medical History: Diabetes Mellitus, Hyperlipidemia, Osteoarthritis (OA), Sleep Apnea/CPAP/BIPAP Additional Past Medical History / Comment(s): USES CPAP. FAILED STRESS TEST. SEASONAL ALLERGIES. CHRONIC BACK PAIN. History of Any Multi-Drug Resistant Organisms: None Reported Past Surgical History: Back Surgery Additional Past Surgical History / Comment(s): BACK SURGERY TIMES 2, Left hydrocele repair October 2022 Past Anesthesia/Blood Transfusion Reactions: No Reported Reaction Past Psychological History: No Psychological Hx Reported Smoking Status: Never smoker Past Alcohol Use History: None Reported Past Drug Use History: None Reported - Past Family History Father Family Medical History: CVA/TIA General Exam Limitations: no limitations General appearance: alert, in no apparent distress, obese Head exam: Present: atraumatic, normocephalic, normal inspection Eye exam: Present: normal appearance, PERRL Pupils: Present: normal accommodation ENT exam: Present: normal exam, normal oropharynx, mucous membranes moist Neck exam: Present: normal inspection, full ROM Respiratory exam: Present: normal lung sounds bilaterally Cardiovascular Exam: Present: regular rate, normal rhythm, normal heart sounds GI/Abdominal exam: Present: soft, normal bowel sounds Extremities exam: Present: normal inspection, full ROM Back exam: Present: normal inspection, full ROM Neurological exam: Present: alert, oriented X3, CN II-XII intact Psychiatric exam: Present: normal affect, normal mood Skin exam: Present: warm, dry Course Vital Signs 04/29/23 04/29/23 04/29/23 11:37 11:54 13:13 Temperature 98.6 F Pulse Rate 54 L 49 L 48 L Respiratory 18 18 18 Rate Blood Pressure 159/89 191/83 154/78 O2 Sat by Pulse 96 94 L 97 Oximetry EKG Findings - EKG Comments: EKG Findings:: An EKG was obtained and was interpreted by myself showing a rate of 51, WV interval of 217, QR yarsani 98 and QTC of 434. This EKG showed a sinus bradycardia with a first-degree AV block however denied of any ST segment elevation or depression noted. Medical Decision Making - Medical Decision Making Was pt. sent in by a medical professional or institution (PRABHA Montgomery, BLOWER ROOM ATTENDANT, urgent care, hospital, or long term...) When possible be specific @ -No Did you speak to anyone other than the patient for history (EMS, parent, family, police, friend...)? What history was obtained from this source @ -No Did you review nursing and triage notes (agree or disagree)? Why? @ -I reviewed and agree with nursing and triage notes Were old charts reviewed (outside hosp., previous admission, EMS record, old EKG, old radiological studies, urgent care reports/EKG's, long term records)? Report findings @ -No old charts were reviewed Differential Diagnosis (chest pain, altered mental status, abdominal pain women, abdominal pain men, vaginal bleeding, weakness, fever, dyspnea, syncope, headache, dizziness, GI bleed, back pain, seizure, CVA, palpatations, mental health)? @ -Hypertensive urgency, ACS, pneumonia EKG interpreted by me (3pts min.). @ -As above X-rays interpreted by me (1pt min.). @ -Chest x-ray was obtained and was interpreted by myself showing no acute process. CT interpreted by me (1pt min.). @ -None done U/S interpreted by me (1pt. min.). @ -None done What testing was considered but not performed or refused? (CT, X-rays, U/S, labs)? Why? @ -None What meds were considered but not given or refused? Why? @ -None Did you discuss the management of the patient with other professionals (professionals i.e. PRABHA Montgomery, BLOWER ROOM ATTENDANT, lab, RT, psych nurse, psychiatric social worker supervisor, test designer, teacher, inspectors and regulatory officers, immigration case worker)? Give summary @ -No Was smoking cessation discussed for >3mins.? @ -No Was critical care preformed (if so, how long)? @ -No Were there social determinants of health that impacted care today? How? (Homelessness, low income, unemployed, alcoholism, drug addiction, transportation, low edu. Level, literacy, decrease access to med. care, intermediate, rehab)? @ -No Was there de-escalation of care discussed even if they declined (Discuss DNR or withdrawal of care, Hospice)? DNR status @ -No What co-morbidities impacted this encounter? (DM, HTN, Smoking, COPD, CAD, Cancer, CVA, ARF, Chemo, Hep., AIDS, mental health diagnosis, sleep apnea, morbid obesity)? @ -Hypertension, diabetes Was patient admitted / discharged? Hospital course, mention meds given and route, prescriptions, significant lab abnormalities, going to OR and other pertinent info. @ -The patient was seen and evaluated emergency department. Physical exam, the patient was resting in bed without any acute distress. Vital signs admission showed hypertension but was otherwise within normal limits. Laboratory workup as well as a chest x-ray and EKG were obtained and were all within normal limits. The patient was given a dose of hydralazine as he did have mild bradycardia and reevaluation had improvement of his blood pressure. The patient was given a dose of Tylenol for his headache and on multiple re-evaluations, stated that his symptoms had greatly improved. The patient likely had hypertensive urgency and was stable for discharge home. The patient was advised to follow-up with his very care physician and service establishment attendant for further workup and evaluation. The patient and his family were agreeable to this and all other questions were answered appropriately. The patient was discharged home in stable condition. Undiagnosed new problem with uncertain prognosis? @ -No Drug Therapy requiring intensive monitoring for toxicity (Heparin, Nitro, Insulin, Cardizem)? @ -No Were any procedures done? @ -No Diagnosis/symptom? @ -Hypertensive urgency Acute, or Chronic, or Acute on Chronic? @ -Acute Uncomplicated (without systemic symptoms) or Complicated (systemic symptoms)? @ -Uncomplicated Side effects of treatment? @ -No Exacerbation, Progression, or Severe Exacerbation? @ -No Poses a threat to life or bodily function? How? (Chest pain, [place], NV, pneumonia, PE, COPD, DKA, ARF, appy, cholecystitis, CVA, Diverticulitis, Homicidal, Suicidal, threat to staff... and all critical care pts) @ -No - Lab Data Result diagrams: 04/29/23 12:18 04/29/23 12:18 Lab Results 04/29/23 04/29/23 04/29/23 Range/Units 12:18 12:18 12:18 WBC 5.8 (3.8-10.6) k/uL RBC 3.99 L (4.30-5.90) m/uL Hgb 12.9 L (13.0-17.5) gm/dL Hct 37.3 L (39.0-53.0) % MCV 93.4 (80.0-100.0) fL MCH 32.3 (25.0-35.0) pg MCHC 34.6 (31.0-37.0) g/dL RDW 13.1 (11.5-15.5) % Plt Count 207 (150-450) k/uL MPV 7.5 Neutrophils % 58 % Lymphocytes % 31 % Monocytes % 6 % Eosinophils % 3 % Basophils % 0 % Neutrophils # 3.4 (1.3-7.7) k/uL Lymphocytes # 1.8 (1.0-4.8) k/uL Monocytes # 0.4 (0-1.0) k/uL Eosinophils # 0.2 (0-0.7) k/uL Basophils # 0.0 (0-0.2) k/uL Sodium 137 (137-145) mmol/L Potassium 3.9 (3.5-5.1) mmol/L Chloride 101 (98-107) mmol/L Carbon Dioxide 28 (22-30) mmol/L Anion Gap 8 mmol/L BUN 18 (9-20) mg/dL Creatinine 1.13 (0.66-1.25) mg/dL Est GFR (CKD-EPI)AfAm 72 (>60 ml/min/1.73 sqM) Est GFR (CKD-EPI)NonAf 62 (>60 ml/min/1.73 sqM) Glucose 149 H (74-99) mg/dL Calcium 9.2 (8.4-10.2) mg/dL Magnesium 2.1 (1.6-2.3) mg/dL Total Bilirubin 1.1 (0.2-1.3) mg/dL AST 34 (17-59) U/L ALT 31 (4-49) U/L Alkaline Phosphatase 61 (38-126) U/L Troponin I 0.016 (0.000-0.034) ng/mL Total Protein 7.1 (6.3-8.2) g/dL Albumin 4.2 (3.5-5.0) g/dL Disposition Clinical Impression: Hypertensive urgency Disposition: HOME SELF-CARE Condition: Stable Instructions (If sedation given, give patient instructions): Acute Headache (ED), Chronic Hypertension (DC) Is patient prescribed a controlled substance at d/c from ED?: No Referrals: Gabo Guy MD [Primary Care Provider] - 1-2 days Time of Disposition: 13:00
[2023-04-29 12:44] LABS: Basophils % (A) 0 %; Eosinophils # (A) 0.2 k/uL (0-0.7); Eosinophils % (A) 3 %; HCT 37.3 % (39.0-53.0); HGB 12.9 gm/dL (13.0-17.5); Lymphocytes # (A) 1.8 k/uL (1.0-4.8); Lymphocytes % (A) 31 %; MCH 32.3 pg (25.0-35.0); MCHC 34.6 g/dL (31.0-37.0); MCV 93.4 fL (80.0-100.0); Mean Platelet Volume 7.5; Monocytes # (A) 0.4 k/uL (0-1.0); Monocytes % (A) 6 %; Neutrophils # (A) 3.4 k/uL (1.3-7.7); Neutrophils % (A) 58 %; Platelet Count 207 k/uL (150-450); RBC 3.99 m/uL (4.30-5.90); RDW 13.1 % (11.5-15.5); WBC 5.8 k/uL (3.8-10.6)
--- NOTE | 2023-04-29 12:47 | XR ---
EXAMINATION TYPE: XR chest 2V DATE OF EXAM: 04/29/2023 COMPARISON: 02/19/2015 INDICATION: Chest pain TECHNIQUE: Frontal and lateral views of the chest are obtained. FINDINGS: The heart size is normal. The pulmonary vasculature is normal. The lungs are clear. IMPRESSION: 1. No acute pulmonary process.
[2023-04-29 13:04] LABS: ALT 31 U/L (4-49); AST 34 U/L (17-59); African American GFR (CKD) 72 (>60 ml/min/1.73 sqM); Albumin 4.2 g/dL (3.5-5.0); Alkaline Phosphatase 61 U/L (38-126); Anion Gap 8 mmol/L; Blood Urea Nitrogen 18 mg/dL (9-20); Calcium 9.2 mg/dL (8.4-10.2); Carbon Dioxide 28 mmol/L (22-30); Chloride 101 mmol/L (98-107); Glucose 149 mg/dL (74-99); Magnesium 2.1 mg/dL (1.6-2.3); Non-African American GFR(CKD) 62 (>60 ml/min/1.73 sqM); Potassium 3.9 mmol/L (3.5-5.1); Sodium 137 mmol/L (137-145); Total Bilirubin 1.1 mg/dL (0.2-1.3); Total Protein 7.1 g/dL (6.3-8.2)
[2023-04-29 13:14] VITALS: BP 154/78; PULSE 48
[2023-04-29] MEDS ORDERED: ACETAMINOPHEN TAB 325 MG TAB PO STA (13:42)
== END 2023-04-29 13:54 | disposition home or self-care (01) ==
LOC: EC 11:15
DX: I16.0 Hypertensive urgency (principal); E11.22 Type 2 diabetes mellitus with diabetic chronic kidney disease; E78.5 Hyperlipidemia, unspecified; G47.30 Sleep apnea, unspecified; I12.9 Hypertensive chronic kidney disease with stage 1 through stage 4 chronic kidney disease, or unspecified chronic kidney disease; M19.90 Unspecified osteoarthritis, unspecified site; N18.9 Chronic kidney disease, unspecified; Z79.1 Long term (current) use of non-steroidal anti-inflammatories (NSAID); Z79.82 Long term (current) use of aspirin; Z79.899 Other long term (current) drug therapy; Z88.8 Allergy status to other drugs, medicaments and biological substances
CPT/HCPCS: 36415; 93005; 80053; 83735; 84484; 85025; 71046; 99284; 96374; J0360

== ENCOUNTER → 2023-05-17 | Outpatient (CLI) | payer MEDICARE, BC ==
--- NOTE | 2023-05-17 10:06 | US ---
EXAMINATION TYPE: US kidneys/renal and bladder DATE OF EXAM: 05/17/2023 COMPARISON: CT, US 2022 CLINICAL INDICATION: Male, 77 years old with history of N13.2 HYDRONEPHROSIS; EXAM MEASUREMENTS: Right Kidney: 13.1 x 6.7 x 5.7 cm Left Kidney: 12.8 x 5.8 x 5.5 cm Post Void Residual Volume: 55 mL Right Kidney: Inferior cyst 2.6 x 2.2 x 2.8 cm; mild hydronephrosis Left Kidney: Multiple cystic areas noted; largest measuring 2.7 x 2.0 x 2.2 cm; multiple echogenic fo ci, largest measuring 0.6 cm with twinkle artifact; moderate hydronephrosis remains Bladder: wnl Bilateral Jets seen: Yes Normal Post Void Residual: Yes No masses are identified. The urinary bladder is anechoic. Bilateral ureteral jets are seen. IMPRESSION: 1. Bilateral hydronephrosis left greater than right. Nephrolithiasis as noted.
== END | disposition home or self-care (01) ==
LOC: RADUSWWP 09:01
PROVIDERS: ATTEND Urology
DX: N13.2 Hydronephrosis with renal and ureteral calculous obstruction (principal)
CPT/HCPCS: 76770

== ENCOUNTER → 2023-08-11 | Outpatient (CLI) | payer MEDICARE, BC ==
--- NOTE | 2023-08-11 08:50 | XR ---
EXAMINATION TYPE: XR chest 2V DATE OF EXAM: 08/11/2023 COMPARISON: 04/29/2023 HISTORY: 77-year-old male presurgical evaluation prior to spine surgery, Z01.818, TECHNIQUE: Frontal and lateral views FINDINGS: Heart upper limits of normal in size. Mild hyperinflation. Some strandy atelectasis at the left base. No consolidation or pleural effusion. IMPRESSION: Correlate for underlying COPD. Strandy atelectasis left base. Otherwise, no definite acute process.
[2023-08-11 10:17] LABS: Partial Thromboplastin Time 23.7 sec (22.0-30.0); Prothrombin Time 11.2 sec (10.0-12.5)
[2023-08-11 12:37] LABS: Basophils # (A) 0.02 X 10*3/uL (0.00-0.10); Basophils % (A) 0.3 %; Eosinophils # (A) 0.19 X 10*3/uL (0.04-0.35); Eosinophils % (A) 2.8 %; HCT 40.3 % (39.6-50.0); Lymphocytes # (A) 2.11 X 10*3/uL (0.90-5.00); Lymphocytes % (A) 30.7 %; MCH 30.5 pg (27.0-32.0); MCHC 32.3 g/dL (32.0-37.0); MCV 94.6 FL (80.0-97.0); Mean Platelet Volume 9.4 FL (9.5-12.2); Monocytes # (A) 0.63 X 10*3/uL (0.20-1.00); Monocytes % (A) 9.2 %; NRBC Per 100 WBC 0 X 10*3/uL (0.00-0.01); Neutrophils % (A) 56.7 %; Platelet Count 279 X 10*3/uL (140-440); RBC 4.26 X 10*6/uL (4.40-5.60); WBC 6.87 X 10*3/uL (4.50-10.00)
[2023-08-11 12:57] LABS: BUN/Creat Ratio 10.77 Ratio (12.00-20.00); Calcium 9.8 mg/dL (8.7-10.3); Carbon Dioxide 29.5 mmol/L (21.6-31.8); Chloride 99 mmol/L (96-109); Glucose 142 mg/dL (70-110); Potassium 3.8 mmol/L (3.5-5.5); Sodium 142 mmol/L (135-145)
[2023-08-11 13:30] LABS: Appearance,Urine Clear (Clear); Bilirubin,Urine Negative (Negative); Blood,Urine Negative (Negative); Color,Urine Yellow (Yellow); Ketones,Urine Negative (Negative); Nitrite,Urine Negative (Negative); Specific Gravity,Urine 1.019 (1.001-1.030); Urobilinogen,Urine 0.2 E.U./DL
== END | disposition home or self-care (01) ==
LOC: LABPAT 08:32
PROVIDERS: ATTEND Orthopaedic Surgery Orthopaedic Surgery of the Spine
DX: Z01.818 Encounter for other preprocedural examination (principal); M43.16 Spondylolisthesis, lumbar region; M48.061 Spinal stenosis, lumbar region without neurogenic claudication
CPT/HCPCS: 71046; 80048; 81003; 85025; 85610; 85730; 86850; 86900; 86901; 87070

== ENCOUNTER 2023-08-15 06:54 | Inpatient (IN) | payer MEDICARE, BC ==
[~2023-08-15 06:54] MED LIST changes: -DEXAMETHASONE SOD PHOSPHATE 4 MG/ML 1 ML VIAL IV ONE; -HYDROmorphone 0.5 MG/0.5 ML SYRINGE IVP PRN; -LACTATED RINGERS 1,000 ML IV SCH; -ONDANSETRON 4 MG/2 ML VIAL IVP ONE; +TRANEXAMIC 1,000 MG/100ML-NACL 1,000 MG in SALINE 1 100ML.BAG IVPB PRN; +ceFAZolin 1,000 MG in SODIUM CHLORIDE 0.9% IRRIGATIO 1,000 ML IRRIGATION PRN
[2023-08-15] MEDS ORDERED: HYDROmorphone 0.5 MG/0.5 ML SYRINGE IVP PRN (07:18)
[2023-08-15] MEDS ORDERED: MIDAZOLAM 2 MG/2 ML VIAL IV PRN (07:18)
[2023-08-15] MEDS ORDERED: LIDOCAINE 1% (10MG/ML) FOR IV START INTRADERMA PRN (07:18)
[2023-08-15] MEDS ORDERED: ONDANSETRON 4 MG/2 ML VIAL IVP ONE ×2 (07:18→08:09)
[2023-08-15] MEDS ORDERED: DEXAMETHASONE SOD PHOSPHATE 4 MG/ML 1 ML VIAL IV ONE (07:18)
[2023-08-15 08:06] LABS: Glucose,Whole Blood 150 mg/dL (70-110)
[2023-08-15] MEDS: LACTATED RINGERS 1,000 ML IV SCH (08:08)
[2023-08-15] MEDS ORDERED: GLYCOPYRROLATE 0.2 MG/ML 2 ML VIAL ONE (09:07)
[2023-08-15] MEDS ORDERED: TRANEXAMIC 1,000 MG/100ML-NACL PREMIX BAG ONE (09:07)
[2023-08-15] MEDS ORDERED: PROPOFOL 10 MG/ML 20 ML VIAL IV ONE (09:07)
[2023-08-15] MEDS ORDERED: HYDROmorphone (PF) 1 MG/ML ONE (09:07)
[2023-08-15] MEDS ORDERED: HEPARIN SODIUM,PORCINE 10,000 UNIT/ML 1 ML VIAL ONE (09:07)
[2023-08-15] MEDS ORDERED: MIDAZOLAM 2 MG/2 ML VIAL ONE (09:07)
[2023-08-15] MEDS ORDERED: WATER FOR INJECTION, STERILE 10 ML VIAL IV ONE (09:07)
[2023-08-15] MEDS ORDERED: VASOPRESSIN 20 UNIT/ML 1 ML VIAL ONE (09:07)
[2023-08-15] MEDS ORDERED: ALBUMIN HUMAN 5% (12.5gm) 250 ML BOTTLE IVPB ONE (09:07)
[2023-08-15] MEDS ORDERED: ROCURONIUM 10 MG/ML (5 ML VIAL) IV ONE (09:07)
[2023-08-15] MEDS ORDERED: SODIUM CHLORIDE 0.9% IRRIG 1,000 ML BTL IRRIGATION ONE (09:07)
[2023-08-15] MEDS ORDERED: LIDOCAINE 1% INJ 10MG/ML (20 ML MDV) ONE (09:07)
[2023-08-15] MEDS ORDERED: PHENYLEPHRINE-0.9% NACL SYG 1,000 MCG/10 ML SYRINGE ONE (09:07)
[2023-08-15] MEDS ORDERED: ePHEDrine 50 MG/ML 1 ML VIAL ONE (09:07)
[2023-08-15] MEDS ORDERED: SUCCINYLCHOLINE CHLORIDE 200 MG/10 ML VIAL IV ONE (09:07)
[2023-08-15] MEDS ORDERED: NEOSTIGMINE 1 MG/ML 10 ML VIAL ONE (09:07)
[2023-08-15] MEDS ORDERED: fentaNYL (PF) 50 MCG/ML 2 ML AMP ONE (09:07)
[2023-08-15] MEDS ORDERED: LACTATED RINGERS 1,000 ML IV ONE ×2 (10:31→12:13)
[2023-08-15] MEDS ORDERED: THROMBIN (BOVINE) 5,000 UNIT VIAL TOPICAL ONE (10:49)
[2023-08-15] MEDS ORDERED: GELATIN SPONGE,ABSORB (LARGE) 1 EACH SPONGE TOPICAL ONE (10:49)
[2023-08-15] MEDS ORDERED: BUPIVACAINE (PF) 0.5% 30 ML VIAL SQ ONE (10:50)
[2023-08-15] MEDS ORDERED: TRANEXAMIC 1,000 MG/100ML-NACL 1,000 MG in SALINE 1 100ML.BAG IVPB STA (10:56)
[2023-08-15] MEDS ORDERED: ONDANSETRON 4 MG/2 ML VIAL IVP PRN (14:41)
[2023-08-15] MEDS ORDERED: MAGNESIUM HYDROXIDE 2,400 MG/30 ML CUP PO PRN (14:41)
[2023-08-15] MEDS ORDERED: ACETAMINOPHEN TAB 325 MG TAB PO PRN (14:41)
[2023-08-15] MEDS ORDERED: BENZOCAINE/MENTHOL LOZENG 1 EACH LOZENGE MUCOUS MEM PRN (14:41)
[2023-08-15] MEDS ORDERED: SENNOSIDES-DOCUSATE SODIUM 1 EACH TAB PO PRN (14:41)
[2023-08-15] MEDS ORDERED: bisacodyL 10 MG SUPP RECTAL PRN (14:41)
[2023-08-15] MEDS ORDERED: traMADol 50 MG TAB PO PRN (14:45)
[2023-08-15 14:49] LABS: Glucose,Whole Blood 163 mg/dL (70-110)
--- NOTE | 2023-08-15 15:04 | P.OP ---
Date of Procedure: 08/15/23 Preoperative Diagnosis: Degenerative scoliosis, severe spinal stenosis L1-2 L2-3 L3 4 L4 5, history of prior decompression L4 5 L5-S1, lower shoulder radiculopathy, lower extremity weakness, neurogenic claudication, severe facet arthrosis, lumbar spondylosis, low back pain Postoperative Diagnosis: Same Anesthesia: GETA Pathology: none sent Condition: stable Disposition: PACU Description of Procedure: DESCRIPTION OF PROCEDURE(S): BRIEF OPERATIVE NOTE Preoperative Diagnosis: Degenerative scoliosis, severe spinal stenosis L1-2 L2-3 L3 4 L4 5, history of prior decompression L4 5 L5-S1, lower shoulder radiculopathy, lower extremity weakness, neurogenic claudication, severe facet arthrosis, lumbar spondylosis, low back pain Postoperative Diagnosis: Degenerative scoliosis, severe spinal stenosis L1-2 L2- 3 L3 4 L4 5, history of prior decompression L4 5 L5-S1, lower shoulder radiculopathy, lower extremity weakness, neurogenic claudication, severe facet arthrosis, lumbar spondylosis, low back pain Procedure: Laminectomy and decompression with medial facetectomy bilateral foraminotomies beyond scope of decompression for fusion at L12 L2-3 L3 4 and L4 [address] navigation aided Minimally invasive Posterior lateral decompression and fusion L1-2 L2-3 L3 4 and L4 [address] navigation for fusion Local autogenous bone grafting Aspiration of bone marrow from the vertebral body pedicle Use of bone graft extenders Use of Cell Saver Surgeon: Dr. Govea Check And Transfer Beader: Jaun ARMANDO who is present throughout the entire the case persistence during positioning, dissection, exposure, visualization, and all crucial elements of the case as well as closure. Anesthesia: General anesthesia per Dr. Tolbert Estimated blood loss: Approximately 1150 mL, with 500 mL given back through Cell Saver Complications: None apparent Components implanted: K2M minimally invasive [place] pedicle screw system withscrews measuring 7.5 and 6.5 mm in diameter to rods with 10 mL of osteo amp bio4 bone graft substitute and 30 mL of the BX bone fibers to supplement the local autogenous bone graft and bone marrow aspirate Disposition: To recovery room in good stable condition. OPERATIVE INDICATIONS The patient has had severe issues at their lower extremity in her lower back over the past several years with significant worsening over the past several months. Over the past few months the patient had pain at their back and their lower extremities. Patient has a history of laminectomy at L5-S1 and L4 5 in the past. He feels he has had troubles ever since then particular the left. Now he has troubles bilaterally with new worsening numbness on the right side. He feels he has weakness bilaterally. The patient is having severe radicular symptoms at their lower extremity with weakness. The patient is having significant pain in their back. They are unable to obtain any comfort. We did aggressive conservative treatment with medications therapy and interventional pain management however thery were not having any relief. The patient's imaging showed multiple changes with degenerative scoliosis with severe spinal stenosis at multiple levels at L1-2 L2-3 L3 4 and L4 5. There appeared to be autofusion at L5-S1. The patient has been through conservative treatment. We discussed various treatment options including surgery, and the patient wishes to proceed with surgery We discussed the risk, patient's alternatives and benefits of surgery including but not limited to, risk of bleeding risk of infection, risk of need for further surgery, risk of decreased, loss of motion, muscle function, malunion nonunion, hardware failure, nerve damage, paralysis, heart attack, blindness and . They understood issues with the current pandemic and the possibility of exposure. OPERATIVE SUMMARY After discussing all the risks, patient alternatives and benefits at length, the patient elected to proceed with surgical intervention, signed informed consent, and presented for their procedure. The patient was seen and examined in the preoperative holding area and the surgical site was marked. The patient was given antibiotics and brought to the operating room. The patient was sedated and intubated by anesthesia in standard fashion. The patient was positioned on to the operating room table in a prone position on the appropriate frame which was well-padded and well molded. We were careful to pad any bony prominences and pressure points. We were careful to maintain the patient's cervical spine and good neutral alignment and position throughout. The patient was prepped and draped in a normal standard fashion. An appropriate timeout and keystone protocol performed. We were able to proceed with the surgery. The local wound area was infiltrated with local anesthetic. I was able to establish an incision at the midline utilizing his prior incision extending cephalad from L1 to L5. Dissection was taken down carefully from L1 L5 over the spinous processes bilaterally over the lamina and over the facet joints down to the transverse processes bilaterally. No was made of obvious and severe arthrosis and ossific spurring around the facet joints. Large osteophytes were taken down. I was able to establish a CT navigation didactic program in dietetics director guide with a bony clamp over the spinous process of L4. We did [address] guided spins in order to assess the areas for L1 L5 pedicles for [place] of the screws. The screws were done similarly at each level. We then were able to place patient in an appropriate drape and do a navigation spin for visualization and 3-D reconstruction of the lumbar spine. I was able utilize C-arm guidance and navigation to establish appropriate position over the pedicles bilaterally at the appropriate levels . With the appropriate levels confirmed was able to make small incisions over the appropriate pedicle sites bilaterally. Utilizing the computer navigation device I was able to establish bony landmarks at the right iliac crest for a bony reference point for the navigation device. I was able to establish a Jamshidi needle over the lateral aspect of the pedicle and advanced the trocar into the pedicle being careful not to breech superiorly infe riorly medially or laterally using computer navigation device. Position was confirmed regularly with AP and lateral images on C-arm and with the computer navigation device at the appropriate levels bilaterally. I was able to establish the trocar into the pedicle appropriately into the posterior aspect of the vertebral body bilaterally at the appropriate levels. This was done at each of the pedicle positions and each of the vertebrae. At the superior vertebrae of L1 on the right I was able to take approximately 25 mL of bone aspiration for use later in the case to supplement the allograft and autograft bone. I was able place the guidewire into the trocar and into the vertebral body appropriately under C-arm guidance. The appropriate length screw was chosen, threaded over the guidewire and screwed appropriately into the pedicle and vertebral body under C-arm guidance in excellent alignment and position with good bony purchase. This is done at each of the screw sites at the appropriate levels at L1-L2 L3-L4 and L5 bilaterally. With the screws intact I was able to enter my attention to the decompression. There is significant bony overgrowth at each level and I was carefully reduced try to save as much bone for local autogenous bone graft as possible. I was able to get good bony exposure and then performed a laminectomy with a combination of high-speed bur, curettes, a ball-tip feeler, and [place] rongeurs. I was able get excellent foraminal decompression bilaterally and central decompression I was As able get excellent central decompression at each level of L1-L2 L3-L4 and L5. The ligamentum flavum was taken down to further decompress centrally and at bilateral neural foramen. The wound was copiously irrigated and suctioned dry. There is no evidence of any dural tear or leak. I felt had excellent central and bilateral foraminal decompression at each level with the screws intact. Good hemostasis maintained. There is no evidence of any dural tear or leak. The wound was irrigated and suctioned dry. With the hardware intact, intraoperative C-arm imaging was again taken which showed good alignment and position of the hardware at the appropriate levels. We were then able to measure, contour and place the rods and appropriate hardware bilaterally. I was able to contour and place screws at L1-L2 L3-L4 and L5 bilaterally. I was able to place capcrews, tighten them down, and torque them with the torque screwdriver appropriately. I also placed a cross-link appropriately and torqued appropriately. The construct was checked out of excellent stability. With this intact I was able to place the local autogenous bone graft with additional bone graft enhancer as necessary into the posterior lateral gutters over the decorticated transverse processes and facet joints on the contralateral side. The remainder of the bone graft was placed over the facet joint on the contralateral side after taking down the facet joint capsule. With the bone graft intact, a stable construct, and good decompression at the appropriate levels, we were able to proceed with closure. Good hemostasis was maintained. There is no evidence of dural tear or leak. The fascia was closed for a watertight closure. he subcuticular tissue was closed with absorbable suture. The wound was cleaned and dried and dressed with the appropriate dressing. The drapes were broken down. The patient was gently rolled back onto their hospital bed being careful to maintain their cervical spine and good neutral alignment and position. They were woken up by anesthesia, extubated, and brought to the recovery room in good stable condition. The patient will be admitted to the hospital for appropriate postoperative care, medical management and monitoring. We will continue to follow them closely about the postoperative course.
--- NOTE | 2023-08-15 15:35 | XR ---
EXAMINATION TYPE: XR lumbar spine 2 or 3V, FL guidance operating room DATE OF EXAM: 08/15/2023 Comparison: None Clinical History: 77-year-old male TRANS LUMB INTERBODY FUSION 3L Findings: Lumbar Interbody Fusion Dr. Govea 41sec fluoro time 6560.56 mGycm2 DAP 3 images are provided Impression: Intraoperative fluoroscopy as above.
[2023-08-15 16:49] LABS: Glucose,Whole Blood 180 mg/dL (70-110)
[2023-08-15] MEDS: ceFAZolin 3 GM in SODIUM CHLORIDE 0.9% 100 ML IVPB SCH ×2 (16:55→23:04)
[2023-08-15] MEDS: SODIUM CHLORIDE 0.9% 1,000 ML IV SCH (16:57)
[2023-08-15] MEDS ORDERED: DEXTROSE 50% SYRINGE 50 ML IVP PRN ×2 (18:34)
[2023-08-15 19:57] LABS: Glucose,Whole Blood 267 mg/dL (70-110)
[2023-08-15] MEDS: INSULIN ASPART (NovoLOG) 100 UNIT/ML VIAL SQ SCH (20:28)
[2023-08-15] MEDS: HYDROcodone/APAP 5-325MG 1 EACH TAB PO PRN (21:21)
[2023-08-15] MEDS: HYDROmorphone 0.5 MG/0.5 ML SYRINGE IVP PRN (23:03)
[2023-08-16] MEDS: HYDROcodone/APAP 5-325MG 1 EACH TAB PO PRN ×2 (01:09→05:53)
[2023-08-16] MEDS: HYDROmorphone 0.5 MG/0.5 ML SYRINGE IVP PRN (03:31)
[2023-08-16] MEDS: SODIUM CHLORIDE 0.9% 1,000 ML IV SCH ×2 (05:43→17:08)
[2023-08-16 06:00] LABS: Glucose,Whole Blood 183 mg/dL (70-110)
[2023-08-16] MEDS: INSULIN ASPART (NovoLOG) 100 UNIT/ML VIAL SQ SCH ×4 (06:37→21:10)
[2023-08-16] MEDS: LACTATED RINGERS 1,000 ML IV SCH (07:44)
[2023-08-16] MEDS: HYDROmorphone 1 MG/ML 1 ML SYRINGE IVP PRN ×3 (07:53→16:08)
[2023-08-16] MEDS: DAPAGLIFLOZIN PROPANEDIOL 5 MG TABLET PO SCH (08:03)
[2023-08-16] MEDS: TORSEMIDE 20 MG TAB PO SCH (08:03)
[2023-08-16] MEDS: MULTIVITAMINS, THERA 1 EACH TAB PO SCH (08:03)
[2023-08-16] MEDS: ATORVASTATIN 40 MG TAB PO SCH (08:04)
[2023-08-16] MEDS: amLODIPine 2.5 MG TAB PO SCH (08:04)
[2023-08-16] MEDS: allopurinoL 300 MG TAB PO SCH (08:04)
[2023-08-16] MEDS: FERROUS SULFATE 325 MG TAB PO SCH (08:04)
[2023-08-16] MEDS: TROSPIUM CHLORIDE 20 MG TABLET PO SCH (08:04)
[2023-08-16] MEDS: ASPIRIN 81 MG PO SCH (08:04)
[2023-08-16] MEDS: LORATADINE 10 MG TAB PO SCH (08:04)
[2023-08-16] MEDS: LOSARTAN 50 MG TAB PO SCH (08:04)
[2023-08-16] MEDS: CHOLECALCIFEROL 125 MCG (5000 IU) TABLET PO SCH (08:04)
[2023-08-16] MEDS: metFORMIN 500 MG TAB PO SCH (08:04)
[2023-08-16] MEDS: ASCORBIC ACID 500 MG TAB PO SCH (08:04)
[2023-08-16] MEDS: SENNOSIDES-DOCUSATE SODIUM 1 EACH TAB PO SCH (08:04)
[2023-08-16] MEDS: NON FORMULARY DRUG (Glucosam/Chon-Msm1/C/Mang/Bosw [Glucosamine-Chondroitin Tablet] 1 EACH PO SCH (08:05)
[2023-08-16 08:44] LABS: Basophils % (A) 0 %; Eosinophils % (A) 0 %; HCT 32.4 % (39.0-53.0); HGB 10.9 gm/dL (13.0-17.5); Lymphocytes # (A) 1.3 k/uL (1.0-4.8); Lymphocytes % (A) 12 %; MCH 31.8 pg (25.0-35.0); MCHC 33.7 g/dL (31.0-37.0); MCV 94.2 fL (80.0-100.0); Mean Platelet Volume 7.1; Monocytes # (A) 0.5 k/uL (0-1.0); Monocytes % (A) 5 %; Neutrophils # (A) 8.4 k/uL (1.3-7.7); Neutrophils % (A) 81 %; Platelet Count 225 k/uL (150-450); RBC 3.44 m/uL (4.30-5.90); WBC 10.3 k/uL (3.8-10.6)
[2023-08-16 08:54] LABS: African American GFR (CKD) 57 (>60 ml/min/1.73 sqM); Anion Gap 5 mmol/L; Blood Urea Nitrogen 22 mg/dL (9-20); Calcium 8.4 mg/dL (8.4-10.2); Carbon Dioxide 33 mmol/L (22-30); Chloride 95 mmol/L (98-107); Glucose 135 mg/dL (74-99); Non-African American GFR(CKD) 50 (>60 ml/min/1.73 sqM); Potassium 3.5 mmol/L (3.5-5.1); Sodium 133 mmol/L (137-145)
[2023-08-16] MEDS ORDERED: TROSPIUM CHLORIDE 20 MG TABLET PO SCH (09:00)
--- NOTE | 2023-08-16 10:32 | P.CONS ---
History of Present Illness - Reason for Consult Consult date: 08/16/23 - History of Present Illness Segun Lei, is a 77-year-old male with known history of degenerative scoliosis and severe spinal stenosis, who was admitted to [facility] by Dr. Govea, and underwent laminectomy and decompression at L1-L2, L2- L3, L3-L4, and L4-L5 Patient was admitted to surgical floor, medical consultation was requested for management while hospitalized. Patient has a known past medical history of hypertension, hyperlipidemia, gout, [id number] diabetes mellitus, scoliosis, spinal stenosis, degenerative osteoarthritis, chronic kidney disease stage IIIB, obstructive sleep apnea on CPAP. On review of system patient is alert and oriented 3 in no apparent distress he is still complaining of severe pain in the lower back otherwise he denies any complaints at this time there is no fever or chills no headache or dizziness no chest pain no shortness of breath no cough no nausea or vomiting no abdominal pain no diarrhea and no urinary symptoms. Patient still has a Flanagan catheter, he is not able to sit up or use a urinal at this time, will continue with Flanagan catheter for 1 more day, and recheck in a.m.. Past Medical History Past Medical History: Cancer, Diabetes Mellitus, Hyperlipidemia, Hypertension, Osteoarthritis (OA), Renal Disease, Sleep Apnea/CPAP/BIPAP Additional Past Medical History / Comment(s): USES CPAP. SEASONAL ALLERGIES. prostate ca w/ radiation approx. 5 yrs. ago,chronic back pain, stage 3B kidney disease History of Any Multi-Drug Resistant Organisms: None Reported Past Surgical History: Back Surgery, Heart Catheterization Additional Past Surgical History / Comment(s): lumbar laminectomy x 2, Left hydrocele repair October 2022, kidney stone removal 2021, 2022 Past Anesthesia/Blood Transfusion Reactions: No Reported Reaction Smoking Status: Never smoker - Past Family History Father Family Medical History: CVA/TIA, Diabetes Mellitus Medications and Allergies Home Medications Medication Instructions Recorded Confirmed Type Aspirin 81 mg PO DAILY 02/25/15 08/15/23 History Glucosam/Sekou-Msm1/C/Clay/Bosw 1 tab PO DAILY 02/25/15 08/15/23 History [Glucosamine-Chondroitin Tablet] Multivitamins, Thera [Multivitamin] 1 tab PO DAILY 02/25/15 08/15/23 History metFORMIN HCL [Metformin HCl ER] 500 mg PO DAILY 02/25/15 08/15/23 History traMADol HCl [Ultram] 50 mg PO TID PRN 02/25/15 08/15/23 History Ascorbic Acid [Vitamin C] 1,000 mg PO DAILY 03/26/21 08/15/23 History Atorvastatin Calcium [Lipitor] 40 mg PO DAILY 03/26/21 08/15/23 History Loratadine 10 mg PO DAILY 09/20/22 08/15/23 History Losartan [Cozaar] 100 mg PO DAILY 12/29/22 08/15/23 History Cholecalciferol (Vitamin D3) 1,250 mcg PO DAILY 08/13/23 08/15/23 History [Vitamin D3] Empagliflozin [Jardiance] 10 mg PO DAILY 08/13/23 08/15/23 History Iron 18 mg PO DAILY 08/13/23 08/15/23 History Solifenacin Succinate 5 mg PO DAILY 08/13/23 08/15/23 History Torsemide [Demadex] 10 mg PO DAILY 08/13/23 08/15/23 History allopurinoL 300 mg PO DAILY 08/13/23 08/15/23 History amLODIPine BESYLATE 2.5 mg PO DAILY 08/13/23 08/15/23 History HYDROcodone/APAP 5-325MG [[place] 1 - 2 tab PO Q6HR PRN #56 tab 08/15/23 Rx 5-325] Allergies Allergy/AdvReac Type Severity Reaction Status Date / Time acetaminophen AdvReac INCREASED Verified 08/15/23 07:40 LIVER ENZYMES Physical Exam Vitals: Vital Signs Temp Pulse Pulse Resp BP Pulse Ox 08/16/23 07:30 98.1 F 83 19 113/68 91 L 08/16/23 02:00 98.5 F 77 17 101/55 93 L 08/15/23 19:25 97.9 F 84 18 119/74 95 08/15/23 17:38 68 111/66 94 L 08/15/23 16:39 74 115/64 93 L 08/15/23 16:08 93 148/80 95 08/15/23 15:54 97.7 F 62 17 111/66 93 L 08/15/23 15:38 74 16 107/56 94 L 08/15/23 15:25 71 16 112/63 95 08/15/23 15:10 74 16 115/61 98 08/15/23 14:55 72 16 115/61 98 08/15/23 14:40 97.4 F L 61 16 123/60 99 Intake and Output 08/15/23 08/16/23 08/16/23 22:59 06:59 14:59 Intake Total 200 Output Total 300 830 Balance -100 -830 Intake: IV 200 Output: Drainage 230 Back 230 Urine 300 600 Other: Voiding Method Indwelling Catheter Indwelling Catheter Weight 124.9 kg In general patient is alert and oriented x 3 in no distress HEENT head normocephalic and atraumatic Neck is supple no JVD no goiter no lymphadenopathy no carotid bruit Chest examination is clear to auscultation no crackles no wheezing Cardiac exam reveals regular heart sounds S1 and S2 no gallops no murmurs Abdomen is soft nontender no organomegaly with normal bowel sounds Extremity exam reveals no edema no cyanosis or clubbing Neurological examination reveals no gross focal deficits Results CBC & Chem 7: 08/16/23 07:47 08/16/23 07:47 Labs: Abnormal Lab Results - Last 24 Hours (Table) 08/15/23 08/15/23 08/15/23 Range/Units 14:47 16:46 19:54 RBC (4.30-5.90) m/uL Hgb (13.0-17.5) gm/dL Hct (39.0-53.0) % Neutrophils # (1.3-7.7) k/uL Sodium (137-145) mmol/L Chloride (98-107) mmol/L Carbon Dioxide (22-30) mmol/L BUN (9-20) mg/dL Creatinine (0.66-1.25) mg/dL Glucose (74-99) mg/dL POC Glucose (mg/dL) 163 H 180 H 267 H (70-110) mg/dL 08/16/23 08/16/23 08/16/23 Range/Units 05:58 07:47 07:47 RBC 3.44 L (4.30-5.90) m/uL Hgb 10.9 L (13.0-17.5) gm/dL Hct 32.4 L (39.0-53.0) % Neutrophils # 8.4 H (1.3-7.7) k/uL Sodium 133 L (137-145) mmol/L Chloride 95 L (98-107) mmol/L Carbon Dioxide 33 H (22-30) mmol/L BUN 22 H (9-20) mg/dL Creatinine 1.36 H (0.66-1.25) mg/dL Glucose 135 H (74-99) mg/dL POC Glucose (mg/dL) 183 H (70-110) mg/dL Assessment and Plan Plan: Degenerative scoliosis with severe spinal stenosis status post laminectomy and decompression L1 to L5 Underlying history of hypertension Underlying history of hyperlipidemia Underlying history of ard-oobqpke-pqojupgik diabetes mellitus Underlying history of obstructive sleep apnea patient uses CPAP at home Underlying history of chronic kidney disease stage IIIB Underlying history of coronary artery disease with history of cardiac catheterization Underlying history of prostate cancer with history of radiation therapy At this time patient is admitted to surgical floor Home medications reviewed and reordered Insulin to sliding scale added For DVT prophylaxis SCD stockings Pain management per orthopedic protocol Will follow closely during this admission.
--- NOTE | 2023-08-16 10:35 | P.PN ---
Subjective Progress Note Date: 08/16/23 Principal diagnosis: S/P L1-L5 decompression and fusion Patient is seen at bedside this morning. He is postop day #1 from L1-L5 decompression and fusion. He has pain at the surgical site as expected but denies any new complaints. He denies new numbness, tingling or calf pain. Review of systems is negative for fever, chills, chest pain, shortness of breath or other Objective - Vital Signs Vital signs: Vital Signs Temp 98.1 F 08/16/23 07:30 Pulse 83 08/16/23 07:30 Resp 19 08/16/23 07:30 BP 113/68 08/16/23 07:30 Pulse Ox 91 L 08/16/23 07:30 FiO2 Intake & Output 08/15/23 08/16/23 08/16/23 18:59 06:59 18:59 Intake Total 2802 Output Total 2195 830 860 Balance 607 -830 -860 Weight 124.9 kg Intake: IV 2802 Output: Drainage 230 60 Back 230 60 Urine 1095 600 800 Estimated Blood Loss 1100 Other: Voiding Method Indwelling Catheter Indwelling Catheter - Exam Inspection reveals a benign surgical wound. There is no active bleeding or drainage. Wound vac intact. Neurovascular status is intact throughout the right lower extremity with motor and sensation fully intact. He has chronic weakness and numbness in left lower extremity. Calves are soft and nontender. 2+ dorsalis pedis pulse and less than 2 second cap refill is present. - Constitutional General appearance: Present: no acute distress - Labs CBC & Chem 7: 08/16/23 07:47 08/16/23 07:47 Labs: Abnormal Lab Results - Last 24 Hours (Table) 08/15/23 08/15/23 08/15/23 Range/Units 14:47 16:46 19:54 RBC (4.30-5.90) m/uL Hgb (13.0-17.5) gm/dL Hct (39.0-53.0) % Neutrophils # (1.3-7.7) k/uL Sodium (137-145) mmol/L Chloride (98-107) mmol/L Carbon Dioxide (22-30) mmol/L BUN (9-20) mg/dL Creatinine (0.66-1.25) mg/dL Glucose (74-99) mg/dL POC Glucose (mg/dL) 163 H 180 H 267 H (70-110) mg/dL 08/16/23 08/16/23 08/16/23 Range/Units 05:58 07:47 07:47 RBC 3.44 L (4.30-5.90) m/uL Hgb 10.9 L (13.0-17.5) gm/dL Hct 32.4 L (39.0-53.0) % Neutrophils # 8.4 H (1.3-7.7) k/uL Sodium 133 L (137-145) mmol/L Chloride 95 L (98-107) mmol/L Carbon Dioxide 33 H (22-30) mmol/L BUN 22 H (9-20) mg/dL Creatinine 1.36 H (0.66-1.25) mg/dL Glucose 135 H (74-99) mg/dL POC Glucose (mg/dL) 183 H (70-110) mg/dL Assessment and Plan Assessment: S/P L1-L5 decompression and fusion Plan: He will continue with routine postop orthopedic protocol including pain management, wound care, PT, DVT prophylaxis and medical management. Expect that he will transfer to home vs rehab in next few days. Time with Patient: Less than 30
[2023-08-16] MEDS: HYDROcodone/APAP 7.5-325MG 1 EACH TAB PO PRN ×3 (10:55→23:48)
[2023-08-16 11:11] LABS: Glucose,Whole Blood 170 mg/dL (70-110)
[2023-08-16] MEDS: diazePAM 5 MG TAB PO PRN (16:08)
[2023-08-16 16:20] LABS: Glucose,Whole Blood 190 mg/dL (70-110)
[2023-08-16 20:45] LABS: Glucose,Whole Blood 228 mg/dL (70-110)
[2023-08-17 06:25] LABS: Glucose,Whole Blood 169 mg/dL (70-110)
[2023-08-17] MEDS: INSULIN ASPART (NovoLOG) 100 UNIT/ML VIAL SQ SCH ×4 (06:33→21:04)
[2023-08-17] MEDS: HYDROcodone/APAP 7.5-325MG 1 EACH TAB PO PRN ×5 (06:34→22:36)
[2023-08-17] MEDS: SODIUM CHLORIDE 0.9% 1,000 ML IV SCH (07:24)
[2023-08-17] MEDS: LACTATED RINGERS 1,000 ML IV SCH (07:24)
[2023-08-17] MEDS: NON FORMULARY DRUG (Glucosam/Chon-Msm1/C/Mang/Bosw [Glucosamine-Chondroitin Tablet] 1 EACH PO SCH (09:16)
[2023-08-17] MEDS: ASPIRIN 81 MG PO SCH (09:26)
[2023-08-17] MEDS: TROSPIUM CHLORIDE 20 MG TABLET PO SCH (09:27)
[2023-08-17] MEDS: MULTIVITAMINS, THERA 1 EACH TAB PO SCH (09:27)
[2023-08-17] MEDS: TORSEMIDE 20 MG TAB PO SCH (09:27)
[2023-08-17] MEDS: LOSARTAN 50 MG TAB PO SCH (09:27)
[2023-08-17] MEDS: DAPAGLIFLOZIN PROPANEDIOL 5 MG TABLET PO SCH (09:27)
[2023-08-17] MEDS: allopurinoL 300 MG TAB PO SCH (09:27)
[2023-08-17] MEDS: amLODIPine 2.5 MG TAB PO SCH ×3 (09:27→21:44)
[2023-08-17] MEDS: ASCORBIC ACID 500 MG TAB PO SCH (09:28)
[2023-08-17] MEDS: LORATADINE 10 MG TAB PO SCH (09:28)
[2023-08-17] MEDS: ATORVASTATIN 40 MG TAB PO SCH (09:28)
[2023-08-17] MEDS: FERROUS SULFATE 325 MG TAB PO SCH (09:28)
[2023-08-17] MEDS: CHOLECALCIFEROL 125 MCG (5000 IU) TABLET PO SCH (09:28)
[2023-08-17] MEDS: metFORMIN 500 MG TAB PO SCH (09:28)
[2023-08-17] MEDS: SENNOSIDES-DOCUSATE SODIUM 1 EACH TAB PO SCH (09:28)
--- NOTE | 2023-08-17 11:07 | P.PN ---
Subjective Progress Note Date: 08/17/23 Segun Lei, is a 77-year-old male with known history of degenerative scoliosis and severe spinal stenosis, who was admitted to [facility] by Dr. Govea, and underwent laminectomy and decompression at L1-L2, L2- L3, L3-L4, and L4-L5 Patient was admitted to surgical floor, medical consultation was requested for management while hospitalized. Patient has a known past medical history of hypertension, hyperlipidemia, gout, emn-xxtzmbo-ymkxfcpzb diabetes mellitus, scoliosis, spinal stenosis, degenerative osteoarthritis, chronic kidney disease stage IIIB, obstructive sleep apnea on CPAP. On review of system patient is alert and oriented 3 in no apparent distress he is still complaining of severe pain in the lower back otherwise he denies any complaints at this time there is no fever or chills no headache or dizziness no chest pain no shortness of breath no cough no nausea or vomiting no abdominal pain no diarrhea and no urinary symptoms. Patient still has a Flanagan catheter, he is not able to sit up or use a urinal at this time, will continue with Flanagan catheter for 1 more day, and recheck in a.m.. on 08/18/2023 patient is alert and oriented 3 currently sitting up in chair. Flanagan catheter to be removed. We'll consult inpatient rehab for possible discharge planning. Patient reports some pain. Current vital signs temp 98.3, heart rate 81, respiratory 20, blood pressure 113/65 with pulse ox 97% on 2 L. lab work currently pending Objective - Vital Signs Vital signs: Vital Signs Temp 98.3 F 08/17/23 07:13 Pulse 81 08/17/23 07:13 Resp 20 08/17/23 07:13 BP 113/65 08/17/23 07:13 Pulse Ox 94 L 08/17/23 08:09 FiO2 Intake & Output 08/16/23 08/17/23 08/17/23 18:59 06:59 18:59 Output Total 1800 260 30 Balance -1800 -260 -30 Output: Drainage 200 260 30 Back 200 260 30 Urine 1600 Other: Voiding Method Indwelling Catheter Indwelling Catheter Indwelling Catheter - Exam In general patient is alert and oriented x 3 in no distress HEENT head normocephalic and atraumatic Neck is supple no JVD no goiter no lymphadenopathy no carotid bruit Chest examination is clear to auscultation no crackles no wheezing Cardiac exam reveals regular heart sounds S1 and S2 no gallops no murmurs Abdomen is soft nontender no organomegaly with normal bowel sounds Extremity exam reveals no edema no cyanosis or clubbing Neurological examination reveals no gross focal deficits - Labs CBC & Chem 7: 08/16/23 07:47 08/16/23 07:47 Labs: Abnormal Lab Results - Last 24 Hours (Table) 08/16/23 08/16/23 08/16/23 Range/Units 07:47 11:10 16:18 POC Glucose (mg/dL) 170 H 190 H (70-110) mg/dL Hemoglobin A1c 7.0 H (<=6.0) % 08/16/23 08/17/23 Range/Units 20:42 06:23 POC Glucose (mg/dL) 228 H 169 H (70-110) mg/dL Hemoglobin A1c (<=6.0) % Assessment and Plan Assessment: Degenerative scoliosis with severe spinal stenosis status post laminectomy and decompression L1 to L5 Underlying history of hypertension Underlying history of hyperlipidemia Underlying history of prb-lfzekcm-kqfxrufme diabetes mellitus Underlying history of obstructive sleep apnea patient uses CPAP at home Underlying history of chronic kidney disease stage IIIB Underlying history of coronary artery disease with history of cardiac catheterization Underlying history of prostate cancer with history of radiation therapy At this time patient is admitted to surgical floor Home medications reviewed and reordered Insulin to sliding scale added For DVT prophylaxis SCD stockings Pain management per orthopedic protocol Will follow closely during this admission. Inpatient rehab ordered
[2023-08-17 11:30] LABS: Glucose,Whole Blood 136 mg/dL (70-110)
[2023-08-17 11:54] LABS: Basophils # (A) 0.02 X 10*3/uL (0.00-0.10); Basophils % (A) 0.2 %; Eosinophils # (A) 0.07 X 10*3/uL (0.04-0.35); Eosinophils % (A) 0.7 %; HCT 29.9 % (39.6-50.0); HGB 9.7 g/dL (13.0-17.0); Lymphocytes # (A) 1.09 X 10*3/uL (0.90-5.00); Lymphocytes % (A) 10.2 %; MCH 31.3 pg (27.0-32.0); MCHC 32.4 g/dL (32.0-37.0); MCV 96.5 FL (80.0-97.0); Mean Platelet Volume 10.1 FL (9.5-12.2); Monocytes # (A) 0.97 X 10*3/uL (0.20-1.00); Monocytes % (A) 9.1 %; NRBC Per 100 WBC 0 X 10*3/uL (0.00-0.01); Neutrophils # (A) 8.45 X 10*3/uL (1.80-7.70); Neutrophils % (A) 79.4 %; Platelet Count 211 X 10*3/uL (140-440); RDW 14.2 % (11.5-14.5); WBC 10.64 X 10*3/uL (4.50-10.00)
[2023-08-17 12:07] LABS: BUN/Creat Ratio 13.75 Ratio (12.00-20.00); Glucose 147 mg/dL (70-110)
[2023-08-17 12:08] LABS: ALT 20 U/L (10-49); AST 70 U/L (14-35); Albumin 3.3 g/dL (3.8-4.9); Albumin/Globulin Ratio 1.83 Ratio (1.60-3.17); Alkaline Phosphatase 42 U/L (41-126); Calcium 8.8 mg/dL (8.7-10.3); Carbon Dioxide 27.6 mmol/L (21.6-31.8); Chloride 94 mmol/L (96-109); Globulin 1.8 g/dL (1.6-3.3); Potassium 3.6 mmol/L (3.5-5.5); Sodium 132 mmol/L (135-145); Total Bilirubin 0.9 mg/dL (0.3-1.2); Total Protein 5.1 g/dL (6.2-8.2)
--- NOTE | 2023-08-17 12:56 | P.PN ---
Subjective Progress Note Date: 08/17/23 Principal diagnosis: S/P L1-L5 decompression and fusion Patient is seen at bedside this morning. He is postop day #2 from L1-L5 decompression and fusion. He has pain at the surgical site as expected but denies any new complaints. He is improved from yesterday and has ambulated to the door and back today. He is up sitting and eating at bedside today. He denies new numbness, tingling or calf pain. Review of systems is negative for fever, chills, chest pain, shortness of breath or other Objective - Vital Signs Vital signs: Vital Signs Temp 98.3 F 08/17/23 07:13 Pulse 81 08/17/23 07:13 Resp 20 08/17/23 07:13 BP 113/65 08/17/23 07:13 Pulse Ox 94 L 08/17/23 08:09 FiO2 Intake & Output 08/16/23 08/17/23 08/17/23 18:59 06:59 18:59 Output Total 1800 260 30 Balance -1800 -260 -30 Output: Drainage 200 260 30 Back 200 260 30 Urine 1600 Other: Voiding Method Indwelling Catheter Indwelling Catheter Indwelling Catheter - Exam Inspection reveals a benign surgical wound. There is no active bleeding or dr fernando. Wound vac/drain intact. Serosangous output. Neurovascular status is intact throughout the right lower extremity with motor and sensation fully intact. He has chronic weakness and numbness in left lower extremity. Calves are soft and nontender. 2+ dorsalis pedis pulse and less than 2 second cap refill is present. - Constitutional General appearance: Present: no acute distress - Labs CBC & Chem 7: 08/17/23 07:20 08/17/23 07:20 Labs: Abnormal Lab Results - Last 24 Hours (Table) 08/16/23 08/16/23 08/16/23 Range/Units 07:47 16:18 20:42 WBC (4.50-10.00) X 10*3/uL RBC (4.40-5.60) X 10*6/uL Hgb (13.0-17.0) g/dL Hct (39.6-50.0) % Neutrophils # (1.80-7.70) X 10*3/uL Sodium (135-145) mmol/L Chloride (96-109) mmol/L Creatinine (0.6-1.5) mg/dL Est GFR (CKD-EPI) (>=60) Glucose (70-110) mg/dL POC Glucose (mg/dL) 190 H 228 H (70-110) mg/dL Hemoglobin A1c 7.0 H (<=6.0) % AST (14-35) U/L Total Protein (6.2-8.2) g/dL Albumin (3.8-4.9) g/dL 08/17/23 08/17/23 08/17/23 Range/Units 06:23 07:20 07:20 WBC 10.64 H (4.50-10.00) X 10*3/uL RBC 3.10 L (4.40-5.60) X 10*6/uL Hgb 9.7 L (13.0-17.0) g/dL Hct 29.9 L (39.6-50.0) % Neutrophils # 8.45 H (1.80-7.70) X 10*3/uL Sodium 132 L (135-145) mmol/L Chloride 94 L (96-109) mmol/L Creatinine 1.6 H (0.6-1.5) mg/dL Est GFR (CKD-EPI) 44 L (>=60) Glucose 147 H (70-110) mg/dL POC Glucose (mg/dL) 169 H (70-110) mg/dL Hemoglobin A1c (<=6.0) % AST 70 H (14-35) U/L Total Protein 5.1 L (6.2-8.2) g/dL Albumin 3.3 L (3.8-4.9) g/dL 08/17/23 Range/Units 11:28 WBC (4.50-10.00) X 10*3/uL RBC (4.40-5.60) X 10*6/uL Hgb (13.0-17.0) g/dL Hct (39.6-50.0) % Neutrophils # (1.80-7.70) X 10*3/uL Sodium (135-145) mmol/L Chloride (96-109) mmol/L Creatinine (0.6-1.5) mg/dL Est GFR (CKD-EPI) (>=60) Glucose (70-110) mg/dL POC Glucose (mg/dL) 136 H (70-110) mg/dL Hemoglobin A1c (<=6.0) % AST (14-35) U/L Total Protein (6.2-8.2) g/dL Albumin (3.8-4.9) g/dL Assessment and Plan Assessment: S/P L1-L5 decompression and fusion Plan: He will continue with routine postop orthopedic protocol including pain management, wound care, PT, DVT prophylaxis and medical management. We will have drain pulled today. Consult for social work D/C planning. Expect that he will transfer to home vs rehab in next few days.
[2023-08-17] MEDS: HYDROmorphone 1 MG/ML 1 ML SYRINGE IVP PRN ×3 (15:36→23:21)
--- NOTE | 2023-08-17 15:56 | P.CONS ---
History of Present Illness - Reason for Consult Consult date: 08/17/23 rehab recommendations - Chief Complaint debility - History of Present Illness Mr. Lei is a 77 y/o Right handed, male, who lives in a tri-level home, with 1 KAYLEEN. Bathroom is on second level. Prior to admission, he was ambulating with a cane at times. He was independent for basic/advanced ADLs. Current driving: yes. Retired: yes. Support system: , family He was admitted to [facility] 08/15 for a laminectomy and decompression of L1-L5 with Dr. Govea. Patient has a history of degenerative scoliosis, severe spinal stenosis with neurogenic claudication and lower extremity weakness. Patient is postop day #2. PM&R consulted for rehab recommendations. Therapy evaluations reviewed; patient needing mod assist sit to stand, mod assist bed mobility, max assist sit to supine, ambulation 5 feet min assist with 2 WW. Awaiting Occupational Therapy evaluations. 08/17/23: Patient found in bed with HOB elevated and at bedside. Patient denies CP, SOB and abdominal pain. He denies concerns with urine and bowels. He c/o some pain in his bilateral anterior thighs and was provided ice packs. He has a wound vac in place to surgical incision which will be discontinued today per EMR documentation. Patient and deny other concerns at this time. Review of Systems negative unless noted in HPI Past Medical History Past Medical History: Cancer, Diabetes Mellitus, Hyperlipidemia, Hypertension, Osteoarthritis (OA), Renal Disease, Sleep Apnea/CPAP/BIPAP Additional Past Medical History / Comment(s): USES CPAP. SEASONAL ALLERGIES. prostate ca w/ radiation approx. 5 yrs. ago,chronic back pain, stage 3B kidney disease History of Any Multi-Drug Resistant Organisms: None Reported Past Surgical History: Back Surgery, Heart Catheterization Additional Past Surgical History / Comment(s): lumbar laminectomy x 2, Left hydrocele repair October 2022, kidney stone removal 2021, 2022 Past Anesthesia/Blood Transfusion Reactions: No Reported Reaction Smoking Status: Never smoker - Past Family History Father Family Medical History: CVA/TIA, Diabetes Mellitus Medications and Allergies Home Medications Medication Instructions Recorded Confirmed Type Aspirin 81 mg PO DAILY 02/25/15 08/15/23 History Glucosam/Sekou-Msm1/C/Clay/Bosw 1 tab PO DAILY 02/25/15 08/15/23 History [Glucosamine-Chondroitin Tablet] Multivitamins, Thera [Multivitamin] 1 tab PO DAILY 02/25/15 08/15/23 History metFORMIN HCL [Metformin HCl ER] 500 mg PO DAILY 02/25/15 08/15/23 History traMADol HCl [Ultram] 50 mg PO TID PRN 02/25/15 08/15/23 History Ascorbic Acid [Vitamin C] 1,000 mg PO DAILY 03/26/21 08/15/23 History Atorvastatin Calcium [Lipitor] 40 mg PO DAILY 03/26/21 08/15/23 History Loratadine 10 mg PO DAILY 09/20/22 08/15/23 History Losartan [Cozaar] 100 mg PO DAILY 12/29/22 08/15/23 History Cholecalciferol (Vitamin D3) 1,250 mcg PO DAILY 08/13/23 08/15/23 History [Vitamin D3] Empagliflozin [Jardiance] 10 mg PO DAILY 08/13/23 08/15/23 History Iron 18 mg PO DAILY 08/13/23 08/15/23 History Solifenacin Succinate 5 mg PO DAILY 08/13/23 08/15/23 History Torsemide [Demadex] 10 mg PO DAILY 08/13/23 08/15/23 History allopurinoL 300 mg PO DAILY 08/13/23 08/15/23 History amLODIPine BESYLATE 2.5 mg PO DAILY 08/13/23 08/15/23 History HYDROcodone/APAP 5-325MG [Varna 1 - 2 tab PO Q6HR PRN #56 tab 08/15/23 Rx 5-325] Allergies Allergy/AdvReac Type Severity Reaction Status Date / Time acetaminophen AdvReac INCREASED Verified 08/15/23 07:40 LIVER ENZYMES Physical Exam Osteopathic Statement: *. No significant issues noted on an osteopathic structural exam other than those noted in the History and Physical/Consult. Vitals: Vital Signs Temp Pulse Resp BP BP Pulse Ox 08/17/23 08:09 94 L 08/17/23 07:13 98.3 F 81 20 113/65 97 08/17/23 06:20 77 117/67 95 08/17/23 02:00 98.5 F 79 17 90/53 94 L 08/16/23 20:00 99 F 87 92/47 90 L 08/16/23 15:46 89 105/57 08/16/23 13:10 98.0 F 83 19 98/57 91 L Intake and Output 08/16/23 08/17/23 08/17/23 22:59 06:59 14:59 Output Total 940 260 30 Balance -940 -260 -30 Output: Drainage 140 260 30 Back 140 260 30 Urine 800 Other: Voiding Method Indwelling Catheter Indwelling Catheter EXAM; General: WDWN, elderly male, NAD, sitting up in bed, at bedside Head: Normocephalic, atraumatic. Eyes: Symmetric Ears: Symmetric. Hearing within normal limits. Mouth: Clear. Neck: Supple. Cardiac: Regular rate and rhythm. Calves supple, non tender, no edema Lungs: Breathing comfortably on RA. Chest symmetric. Abdomen: Soft, nontender. Extremities: Arthritic changes consistent with age. Neurological: Alert and oriented x3 Speech is clear and fluent without paraphasic errors Cranial nerves: CN II-XII: intact. Sensation: Intact and symmetrical limbs. Musculoskeletal: ROM WFL EXCEPT: MMT UE Sh Abd EE EF FABD WE HG Right 5 5 5 5 5 5 Left 5 5 5 5 5 5 MMT LE HF KE DF EHL Right 3 4 5 5 Left 3 4 5 5 Reflexes Biceps Triceps Brachioradialis Patella Achilles Babinski Hoffmans Right Left Skin: Skin intact where visible to head, neck, and bilateral upper and lower extremities EXCEPT: surgical incision with wound vac in place, PIV Psych: Calm, cooperative Results CBC & Chem 7: 08/17/23 07:20 08/17/23 07:20 Labs: Abnormal Lab Results - Last 24 Hours (Table) 08/16/23 08/16/23 08/16/23 Range/Units 07:47 16:18 20:42 POC Glucose (mg/dL) 190 H 228 H (70-110) mg/dL Hemoglobin A1c 7.0 H (<=6.0) % 08/17/23 08/17/23 Range/Units 06:23 11:28 POC Glucose (mg/dL) 169 H 136 H (70-110) mg/dL Hemoglobin A1c (<=6.0) % Assessment and Plan Assessment: #Incomplete paraplegia secondary to degenerative scoliosis and severe spinal stenosis s/p L1-5 laminectomy and decompression with medial facetectomy by Dr. Pasia -PT/OT -Pain management -Dr. Govea following -08/17: wound vac in place with plans to discontinue today per EMR documentation #CKD stage IIIb #NIURKA on CPAP #DM -CIGA, NovoLog sliding scale #History of prostate cancer with radiation #Bowel/ Bladder: Nursing to monitor and report concerns if any. #Diet -Regular #Skin/wound: Skin/Wound care to follow as needed #Pain Management -Tylenol 650 mg every 6 hours as needed, Varna 7.5/325 mg 1 tab every 4 hours as needed, Varna 7.5/325 mg 2 tabs every 6 hours as needed, Dilaudid 0.5 to 1 mg every 4 hours as needed, Ultram 50 mg 3 times daily as needed #DVT Prophylaxis: Defer to Ortho/IM management. #Comorbidities: Hypertension, hyperlipidemia, gout #Your medical dx and mgt Goals: Modified Independent mobility and ADLS both basic and advanced; increased functional mobility/strength; increased balance, safety, endurance. Improvement in medical issues through your care. Barriers: Pain, endurance, postop Discharge recommendation: likely a good IPR candidate. Awaiting OT evals. Patie nt would benefit from structured rehabilitation program prior to returning home. Patient was independent prior to surgery and has good support system. Patient seen and examined by Dr. Shankar Note prepped by Gemini Dumont NP-C Author: Gemini Dumont NP
[2023-08-17 16:27] LABS: Glucose,Whole Blood 128 mg/dL (70-110)
[2023-08-17] MEDS: diazePAM 5 MG TAB PO PRN (17:23)
[2023-08-17 20:48] LABS: Glucose,Whole Blood 183 mg/dL (70-110)
[2023-08-18] MEDS: SODIUM CHLORIDE 0.9% 1,000 ML IV SCH ×2 (02:09→11:35)
[2023-08-18] MEDS: HYDROcodone/APAP 7.5-325MG 1 EACH TAB PO PRN ×2 (05:09→14:53)
[2023-08-18 05:49] LABS: Glucose,Whole Blood 168 mg/dL (70-110)
[2023-08-18] MEDS: diazePAM 5 MG TAB PO PRN ×3 (06:45→21:17)
[2023-08-18] MEDS: INSULIN ASPART (NovoLOG) 100 UNIT/ML VIAL SQ SCH ×4 (06:45→21:17)
[2023-08-18] MEDS: LOSARTAN 50 MG TAB PO SCH (08:29)
[2023-08-18] MEDS: SENNOSIDES-DOCUSATE SODIUM 1 EACH TAB PO SCH (08:29)
[2023-08-18] MEDS: ASPIRIN 81 MG PO SCH (08:29)
[2023-08-18] MEDS: metFORMIN 500 MG TAB PO SCH (08:29)
[2023-08-18] MEDS: ASCORBIC ACID 500 MG TAB PO SCH (08:30)
[2023-08-18] MEDS: allopurinoL 300 MG TAB PO SCH (08:30)
[2023-08-18] MEDS: FERROUS SULFATE 325 MG TAB PO SCH (08:30)
[2023-08-18] MEDS: CHOLECALCIFEROL 125 MCG (5000 IU) TABLET PO SCH (08:30)
[2023-08-18] MEDS: MULTIVITAMINS, THERA 1 EACH TAB PO SCH (08:30)
[2023-08-18] MEDS: ATORVASTATIN 40 MG TAB PO SCH (08:30)
[2023-08-18] MEDS: DAPAGLIFLOZIN PROPANEDIOL 5 MG TABLET PO SCH (08:30)
[2023-08-18] MEDS: TROSPIUM CHLORIDE 20 MG TABLET PO SCH (08:30)
[2023-08-18] MEDS: TORSEMIDE 20 MG TAB PO SCH (08:30)
[2023-08-18] MEDS: LORATADINE 10 MG TAB PO SCH (08:30)
[2023-08-18] MEDS: NON FORMULARY DRUG (Glucosam/Chon-Msm1/C/Mang/Bosw [Glucosamine-Chondroitin Tablet] 1 EACH PO SCH (08:31)
[2023-08-18] MEDS: LACTATED RINGERS 1,000 ML IV SCH (10:37)
--- NOTE | 2023-08-18 10:42 | P.PN ---
Subjective Progress Note Date: 08/18/23 Segun Lei, is a 77-year-old male with known history of degenerative scoliosis and severe spinal stenosis, who was admitted to [facility] by Dr. Govea, and underwent laminectomy and decompression at L1-L2, L2- L3, L3-L4, and L4-L5 Patient was admitted to surgical floor, medical consultation was requested for management while hospitalized. Patient has a known past medical history of hypertension, hyperlipidemia, gout, zyt-driepgh-sfzsprrag diabetes mellitus, scoliosis, spinal stenosis, degenerative osteoarthritis, chronic kidney disease stage IIIB, obstructive sleep apnea on CPAP. On review of system patient is alert and oriented 3 in no apparent distress he is still complaining of severe pain in the lower back otherwise he denies any complaints at this time there is no fever or chills no headache or dizziness no chest pain no shortness of breath no cough no nausea or vomiting no abdominal pain no diarrhea and no urinary symptoms. Patient still has a Flanagan catheter, he is not able to sit up or use a urinal at this time, will continue with Flanagan catheter for 1 more day, and recheck in a.m.. on 08/17/2023 patient is alert and oriented 3 currently sitting up in chair. Flanagan catheter to be removed. We'll consult inpatient rehab for possible discharge planning. Patient reports some pain. Current vital signs temp 98.3, heart rate 81, respiratory 20, blood pressure 113/65 with pulse ox 97% on 2 L. lab work currently pending On 08/18/2023 patient was seen and examined on the medical floor he is alert and oriented 3 in no apparent distress he is sitting up in a chair he was able to ambulate a few steps in the room today, pain is better controlled, Flanagan catheter was removed yesterday, vital exam reveals a temperature of 98.8 pulse 79 respiration 17 blood pressure 96/54 pulse ox 91% on room air Objective - Vital Signs Vital signs: Vital Signs Temp 98.8 F 08/18/23 02:18 Pulse 79 08/18/23 02:18 Resp 17 08/18/23 02:18 BP 96/54 08/18/23 02:18 Pulse Ox 91 L 08/18/23 02:18 FiO2 Intake & Output 08/17/23 08/18/23 08/18/23 18:59 06:59 18:59 Output Total 110 Balance -110 Output: Drainage 110 Back 110 Other: Voiding Method Indwelling Catheter Toilet # Voids 2 1 - Exam In general patient is alert and oriented x 3 in no distress HEENT head normocephalic and atraumatic Neck is supple no JVD no goiter no lymphadenopathy no carotid bruit Chest examination is clear to auscultation no crackles no wheezing Cardiac exam reveals regular heart sounds S1 and S2 no gallops no murmurs Abdomen is soft nontender no organomegaly with normal bowel sounds Extremity exam reveals no edema no cyanosis or clubbing Neurological examination reveals no gross focal deficits - Labs CBC & Chem 7: 08/17/23 07:20 08/17/23 07:20 Labs: Abnormal Lab Results - Last 24 Hours (Table) 08/17/23 08/17/23 08/17/23 Range/Units 07:20 07:20 11:28 WBC 10.64 H (4.50-10.00) X 10*3/uL RBC 3.10 L (4.40-5.60) X 10*6/uL Hgb 9.7 L (13.0-17.0) g/dL Hct 29.9 L (39.6-50.0) % Neutrophils # 8.45 H (1.80-7.70) X 10*3/uL Sodium 132 L (135-145) mmol/L Chloride 94 L (96-109) mmol/L Creatinine 1.6 H (0.6-1.5) mg/dL Est GFR (CKD-EPI) 44 L (>=60) Glucose 147 H (70-110) mg/dL POC Glucose (mg/dL) 136 H (70-110) mg/dL AST 70 H (14-35) U/L Total Protein 5.1 L (6.2-8.2) g/dL Albumin 3.3 L (3.8-4.9) g/dL 08/17/23 08/17/23 08/18/23 Range/Units 16:25 20:45 05:40 WBC (4.50-10.00) X 10*3/uL RBC (4.40-5.60) X 10*6/uL Hgb (13.0-17.0) g/dL Hct (39.6-50.0) % Neutrophils # (1.80-7.70) X 10*3/uL Sodium (135-145) mmol/L Chloride (96-109) mmol/L Creatinine (0.6-1.5) mg/dL Est GFR (CKD-EPI) (>=60) Glucose (70-110) mg/dL POC Glucose (mg/dL) 128 H 183 H 168 H (70-110) mg/dL AST (14-35) U/L Total Protein (6.2-8.2) g/dL Albumin (3.8-4.9) g/dL Assessment and Plan Plan: Degenerative scoliosis with severe spinal stenosis status post laminectomy and decompression L1 to L5 Underlying history of hypertension Underlying history of hyperlipidemia Underlying history of ajo-driaziy-ymvfblcys diabetes mellitus Underlying history of obstructive sleep apnea patient uses CPAP at home Underlying history of chronic kidney disease stage IIIB Underlying history of coronary artery disease with history of cardiac catheterization Underlying history of prostate cancer with history of radiation therapy At this time patient is admitted to surgical floor Home medications reviewed and reordered Insulin to sliding scale added For DVT prophylaxis SCD stockings Pain management per orthopedic protocol Will follow closely during this admission.
--- NOTE | 2023-08-18 11:11 | P.PN ---
Subjective Progress Note Date: 08/18/23 Principal diagnosis: S/P L1-L5 decompression and fusion Patient is seen at bedside this morning. He is postop day #3 from L1-L5 decompression and fusion. He has pain at the surgical site as expected but denies any new complaints. He continues to improve and has ambulated. He is up sitting at bedside today. He denies new numbness, tingling or calf pain. Review of systems is negative for fever, chills, chest pain, shortness of breath or other Objective - Vital Signs Vital signs: Vital Signs Temp 98.6 F 08/18/23 07:58 Pulse 74 08/18/23 07:58 Resp 16 08/18/23 07:58 BP 113/67 08/18/23 07:58 Pulse Ox 92 L 08/18/23 09:44 FiO2 Intake & Output 08/17/23 08/18/23 08/18/23 18:59 06:59 18:59 Output Total 110 Balance -110 Output: Drainage 110 Back 110 Other: Voiding Method Indwelling Catheter Toilet Toilet # Voids 2 1 - Exam Inspection reveals a benign surgical wound. There is no active bleeding or drainage. Wound vac/drain has been removed. Neurovascular status is intact throughout the right lower extremity with motor and sensation fully intact. He has chronic weakness and numbness in left lower extremity. Calves are soft and nontender. 2+ dorsalis pedis pulse and less than 2 second cap refill is present. - Constitutional General appearance: Present: no acute distress - Labs CBC & Chem 7: 08/17/23 07:20 08/17/23 07:20 Labs: Abnormal Lab Results - Last 24 Hours (Table) 08/17/23 08/17/23 08/17/23 Range/Units 07:20 07:20 11:28 WBC 10.64 H (4.50-10.00) X 10*3/uL RBC 3.10 L (4.40-5.60) X 10*6/uL Hgb 9.7 L (13.0-17.0) g/dL Hct 29.9 L (39.6-50.0) % Neutrophils # 8.45 H (1.80-7.70) X 10*3/uL Sodium 132 L (135-145) mmol/L Chloride 94 L (96-109) mmol/L Creatinine 1.6 H (0.6-1.5) mg/dL Est GFR (CKD-EPI) 44 L (>=60) Glucose 147 H (70-110) mg/dL POC Glucose (mg/dL) 136 H (70-110) mg/dL AST 70 H (14-35) U/L Total Protein 5.1 L (6.2-8.2) g/dL Albumin 3.3 L (3.8-4.9) g/dL 08/17/23 08/17/23 08/18/23 Range/Units 16:25 20:45 05:40 WBC (4.50-10.00) X 10*3/uL RBC (4.40-5.60) X 10*6/uL Hgb (13.0-17.0) g/dL Hct (39.6-50.0) % Neutrophils # (1.80-7.70) X 10*3/uL Sodium (135-145) mmol/L Chloride (96-109) mmol/L Creatinine (0.6-1.5) mg/dL Est GFR (CKD-EPI) (>=60) Glucose (70-110) mg/dL POC Glucose (mg/dL) 128 H 183 H 168 H (70-110) mg/dL AST (14-35) U/L Total Protein (6.2-8.2) g/dL Albumin (3.8-4.9) g/dL Assessment and Plan Assessment: S/P L1-L5 decompression and fusion Plan: He will continue with routine postop orthopedic protocol including pain management, wound care, PT, DVT prophylaxis and medical management. Plan will likely be D/C to home with home care services. Expect that he will transfer to home in next 1-2 days. Time with Patient: Less than 30
[2023-08-18 11:35] LABS: Glucose,Whole Blood 180 mg/dL (70-110)
[2023-08-18] MEDS: HYDROmorphone 1 MG/ML 1 ML SYRINGE IVP PRN ×2 (13:18→17:26)
[2023-08-18 16:42] LABS: Glucose,Whole Blood 125 mg/dL (70-110)
[2023-08-18 19:48] LABS: Glucose,Whole Blood 173 mg/dL (70-110)
[2023-08-18] MEDS: amLODIPine 2.5 MG TAB PO SCH (22:08)
[2023-08-19] MEDS: SODIUM CHLORIDE 0.9% 1,000 ML IV SCH ×2 (00:14→11:32)
[2023-08-19] MEDS: HYDROmorphone 1 MG/ML 1 ML SYRINGE IVP PRN (00:16)
[2023-08-19 06:17] LABS: Glucose,Whole Blood 131 mg/dL (70-110)
[2023-08-19] MEDS: HYDROcodone/APAP 7.5-325MG 1 EACH TAB PO PRN ×2 (06:20→12:28)
[2023-08-19] MEDS: INSULIN ASPART (NovoLOG) 100 UNIT/ML VIAL SQ SCH ×4 (06:40→20:50)
[2023-08-19 07:41] LABS: Basophils % (A) 0 %; Eosinophils # (A) 0.1 k/uL (0-0.7); Eosinophils % (A) 1 %; HCT 29.6 % (39.0-53.0); Lymphocytes # (A) 1.1 k/uL (1.0-4.8); Lymphocytes % (A) 14 %; MCH 31.8 pg (25.0-35.0); MCHC 33.7 g/dL (31.0-37.0); MCV 94.3 fL (80.0-100.0); Mean Platelet Volume 7.4; Monocytes # (A) 0.6 k/uL (0-1.0); Monocytes % (A) 7 %; Neutrophils % (A) 75 %; Platelet Count 255 k/uL (150-450); RBC 3.14 m/uL (4.30-5.90); RDW 13.8 % (11.5-15.5); WBC 7.9 k/uL (3.8-10.6)
[2023-08-19 07:51] LABS: ALT 22 U/L (4-49); AST 48 U/L (17-59); African American GFR (CKD) 71 (>60 ml/min/1.73 sqM); Albumin 2.9 g/dL (3.5-5.0); Albumin/Globulin Ratio 1.2; Alkaline Phosphatase 67 U/L (38-126); Anion Gap 11 mmol/L; Blood Urea Nitrogen 18 mg/dL (9-20); Calcium 8.5 mg/dL (8.4-10.2); Carbon Dioxide 25 mmol/L (22-30); Chloride 97 mmol/L (98-107); Globulin 2.5 g/dL; Glucose 127 mg/dL (74-99); Non-African American GFR(CKD) 61 (>60 ml/min/1.73 sqM); Potassium 3.1 mmol/L (3.5-5.1); Sodium 133 mmol/L (137-145); Total Bilirubin 1.1 mg/dL (0.2-1.3); Total Protein 5.4 g/dL (6.3-8.2)
[2023-08-19] MEDS: LACTATED RINGERS 1,000 ML IV SCH (07:59)
[2023-08-19] MEDS: LOSARTAN 50 MG TAB PO SCH (08:12)
[2023-08-19] MEDS: DAPAGLIFLOZIN PROPANEDIOL 5 MG TABLET PO SCH (08:12)
[2023-08-19] MEDS: allopurinoL 300 MG TAB PO SCH (08:12)
[2023-08-19] MEDS: TORSEMIDE 20 MG TAB PO SCH (08:12)
[2023-08-19] MEDS: LORATADINE 10 MG TAB PO SCH (08:12)
[2023-08-19] MEDS: FERROUS SULFATE 325 MG TAB PO SCH (08:13)
[2023-08-19] MEDS: TROSPIUM CHLORIDE 20 MG TABLET PO SCH (08:13)
[2023-08-19] MEDS: MULTIVITAMINS, THERA 1 EACH TAB PO SCH (08:13)
[2023-08-19] MEDS: CHOLECALCIFEROL 125 MCG (5000 IU) TABLET PO SCH (08:13)
[2023-08-19] MEDS: ASPIRIN 81 MG PO SCH (08:13)
[2023-08-19] MEDS: metFORMIN 500 MG TAB PO SCH (08:13)
[2023-08-19] MEDS: ASCORBIC ACID 500 MG TAB PO SCH (08:13)
[2023-08-19] MEDS: ATORVASTATIN 40 MG TAB PO SCH (08:13)
[2023-08-19] MEDS: NON FORMULARY DRUG (Glucosam/Chon-Msm1/C/Mang/Bosw [Glucosamine-Chondroitin Tablet] 1 EACH PO SCH (08:14)
[2023-08-19] MEDS: SENNOSIDES-DOCUSATE SODIUM 1 EACH TAB PO SCH (08:14)
[2023-08-19] MEDS ORDERED: Potassium Replacement Protocol 1 EACH MISC MISCELLANE PRN (10:24)
--- NOTE | 2023-08-19 10:26 | P.PN ---
Subjective Progress Note Date: 08/19/23 Segun Lei, is a 77-year-old male with known history of degenerative scoliosis and severe spinal stenosis, who was admitted to [facility] by Dr. Govea, and underwent laminectomy and decompression at L1-L2, L2- L3, L3-L4, and L4-L5 Patient was admitted to surgical floor, medical consultation was requested for management while hospitalized. Patient has a known past medical history of hypertension, hyperlipidemia, gout, gkk-iynfmxh-ykiaddrhz diabetes mellitus, scoliosis, spinal stenosis, degenerative osteoarthritis, chronic kidney disease stage IIIB, obstructive sleep apnea on CPAP. On review of system patient is alert and oriented 3 in no apparent distress he is still complaining of severe pain in the lower back otherwise he denies any complaints at this time there is no fever or chills no headache or dizziness no chest pain no shortness of breath no cough no nausea or vomiting no abdominal pain no diarrhea and no urinary symptoms. Patient still has a Flanagan catheter, he is not able to sit up or use a urinal at this time, will continue with Flanagan catheter for 1 more day, and recheck in a.m.. on 08/18/2023 patient is alert and oriented 3 currently sitting up in chair. Flanagan catheter to be removed. We'll consult inpatient rehab for possible discharge planning. Patient reports some pain. Current vital signs temp 98.3, heart rate 81, respiratory 20, blood pressure 113/65 with pulse ox 97% on 2 L. lab work currently pending On 08/19/2023 Patient is alert and oriented 3. Currently sitting up in chair. Potassium low at 3.1 replacement protocol. Current vital signs of 98.6, heart rate 70, respiratory rate 18, blood pressure 119/63 with pulse ox of 95% on room air Objective - Vital Signs Vital signs: Vital Signs Temp 98.6 F 08/19/23 07:18 Pulse 70 08/19/23 07:18 Resp 18 08/19/23 07:18 BP 119/63 08/19/23 07:18 Pulse Ox 95 08/19/23 07:18 FiO2 Intake & Output 08/18/23 08/19/23 08/19/23 18:59 06:59 18:59 Intake Total 440 Balance 440 Intake: Oral 440 Other: Voiding Method Toilet Toilet # Voids 4 3 # Bowel Movements 1 - Exam In general patient is alert and oriented x 3 in no distress HEENT head normocephalic and atraumatic Neck is supple no JVD no goiter no lymphadenopathy no carotid bruit Chest examination is clear to auscultation no crackles no wheezing Cardiac exam reveals regular heart sounds S1 and S2 no gallops no murmurs Abdomen is soft nontender no organomegaly with normal bowel sounds Extremity exam reveals no edema no cyanosis or clubbing Neurological examination reveals no gross focal deficits - Labs CBC & Chem 7: 08/19/23 07:09 08/19/23 07:09 Labs: Abnormal Lab Results - Last 24 Hours (Table) 08/18/23 08/18/23 08/18/23 Range/Units 11:32 16:27 19:47 RBC (4.30-5.90) m/uL Hgb (13.0-17.5) gm/dL Hct (39.0-53.0) % Sodium (137-145) mmol/L Potassium (3.5-5.1) mmol/L Chloride (98-107) mmol/L Glucose (74-99) mg/dL POC Glucose (mg/dL) 180 H 125 H 173 H (70-110) mg/dL Total Protein (6.3-8.2) g/dL Albumin (3.5-5.0) g/dL 08/19/23 08/19/23 08/19/23 Range/Units 06:16 07:09 07:09 RBC 3.14 L (4.30-5.90) m/uL Hgb 10.0 L (13.0-17.5) gm/dL Hct 29.6 L (39.0-53.0) % Sodium 133 L (137-145) mmol/L Potassium 3.1 L (3.5-5.1) mmol/L Chloride 97 L (98-107) mmol/L Glucose 127 H (74-99) mg/dL POC Glucose (mg/dL) 131 H (70-110) mg/dL Total Protein 5.4 L (6.3-8.2) g/dL Albumin 2.9 L (3.5-5.0) g/dL Assessment and Plan Assessment: Degenerative scoliosis with severe spinal stenosis status post laminectomy and decompression L1 to L5 Underlying history of hypertension Underlying history of hyperlipidemia Underlying history of pka-fwudshm-talgzrhbp diabetes mellitus Underlying history of obstructive sleep apnea patient uses CPAP at home Underlying history of chronic kidney disease stage IIIB Underlying history of coronary artery disease with history of cardiac catheterization Underlying history of prostate cancer with history of radiation therapy At this time patient is admitted to surgical floor Home medications reviewed and reordered Insulin to sliding scale added For DVT prophylaxis SCD stockings Pain management per orthopedic protocol Will follow closely during this admission. Inpatient rehab ordered
[2023-08-19] MEDS: POTASSIUM CHLORIDE ER 20 MEQ TAB.ER PO SCH ×2 (10:45→12:28)
[2023-08-19 11:33] LABS: Glucose,Whole Blood 131 mg/dL (70-110)
[2023-08-19] MEDS ORDERED: HYDROcodone/APAP 10-325MG 1 EACH TAB PO PRN (12:48)
--- NOTE | 2023-08-19 12:53 | P.PN ---
Subjective Progress Note Date: 08/19/23 Principal diagnosis: S/P L1-L5 decompression and fusion Patient is seen at bedside this morning. He is postop day #4 from L1-L5 decompression and fusion. He has pain at the surgical site as expected but denies any new complaints. He is having a little more difficulty with pain and movement today. He has been up today. He denies new numbness, tingling or calf pain. Review of systems is negative for fever, chills, chest pain, shortness of breath or other Objective - Vital Signs Vital signs: Vital Signs Temp 98.6 F 08/19/23 07:18 Pulse 70 08/19/23 07:18 Resp 18 08/19/23 07:18 BP 119/63 08/19/23 07:18 Pulse Ox 95 08/19/23 07:18 FiO2 Intake & Output 08/18/23 08/19/23 08/19/23 18:59 06:59 18:59 Intake Total 440 Balance 440 Intake: Oral 440 Other: Voiding Method Toilet Toilet # Voids 4 3 2 # Bowel Movements 1 - Exam Inspection reveals a benign surgical wound. There is no active bleeding or drainage. Wound vac/drain has been removed. Neurovascular status is intact throughout the right lower extremity with motor and sensation fully intact. He has chronic weakness and numbness in left lower extremity. Calves are soft and nontender. 2+ dorsalis pedis pulse and less than 2 second cap refill is present. - Constitutional General appearance: Present: no acute distress - Labs CBC & Chem 7: 08/19/23 07:09 08/19/23 07:09 Labs: Abnormal Lab Results - Last 24 Hours (Table) 08/18/23 08/18/23 08/19/23 Range/Units 16:27 19:47 06:16 RBC (4.30-5.90) m/uL Hgb (13.0-17.5) gm/dL Hct (39.0-53.0) % Sodium (137-145) mmol/L Potassium (3.5-5.1) mmol/L Chloride (98-107) mmol/L Glucose (74-99) mg/dL POC Glucose (mg/dL) 125 H 173 H 131 H (70-110) mg/dL Total Protein (6.3-8.2) g/dL Albumin (3.5-5.0) g/dL 08/19/23 08/19/23 08/19/23 Range/Units 07:09 07:09 11:32 RBC 3.14 L (4.30-5.90) m/uL Hgb 10.0 L (13.0-17.5) gm/dL Hct 29.6 L (39.0-53.0) % Sodium 133 L (137-145) mmol/L Potassium 3.1 L (3.5-5.1) mmol/L Chloride 97 L (98-107) mmol/L Glucose 127 H (74-99) mg/dL POC Glucose (mg/dL) 131 H (70-110) mg/dL Total Protein 5.4 L (6.3-8.2) g/dL Albumin 2.9 L (3.5-5.0) g/dL Assessment and Plan Assessment: S/P L1-L5 decompression and fusion Plan: He will continue with routine postop orthopedic protocol including pain management, wound care, PT, DVT prophylaxis and medical management. Plan will likely be D/C to home with home care services vs ECF. D/C planning with social work/case management pending. Expect that he will transfer discharge in next 1-2 days. Time with Patient: Less than 30
[2023-08-19 17:04] LABS: Glucose,Whole Blood 222 mg/dL (70-110)
[2023-08-19] MEDS: HYDROcodone/APAP 10-325MG 1 EACH TAB PO PRN ×2 (17:10→23:09)
[2023-08-19 19:45] LABS: Glucose,Whole Blood 131 mg/dL (70-110)
[2023-08-19] MEDS: amLODIPine 2.5 MG TAB PO SCH (21:00)
[2023-08-20] MEDS: SODIUM CHLORIDE 0.9% 1,000 ML IV SCH ×2 (03:32→11:32)
[2023-08-20] MEDS: HYDROcodone/APAP 10-325MG 1 EACH TAB PO PRN ×3 (04:51→21:02)
[2023-08-20 06:04] LABS: Glucose,Whole Blood 156 mg/dL (70-110)
[2023-08-20] MEDS: INSULIN ASPART (NovoLOG) 100 UNIT/ML VIAL SQ SCH ×4 (06:41→22:30)
[2023-08-20] MEDS: NON FORMULARY DRUG (Glucosam/Chon-Msm1/C/Mang/Bosw [Glucosamine-Chondroitin Tablet] 1 EACH PO SCH (08:11)
[2023-08-20] MEDS: LOSARTAN 50 MG TAB PO SCH (08:18)
[2023-08-20] MEDS: metFORMIN 500 MG TAB PO SCH (08:18)
[2023-08-20] MEDS: CHOLECALCIFEROL 125 MCG (5000 IU) TABLET PO SCH (08:19)
[2023-08-20] MEDS: allopurinoL 300 MG TAB PO SCH (08:19)
[2023-08-20] MEDS: MULTIVITAMINS, THERA 1 EACH TAB PO SCH (08:19)
[2023-08-20] MEDS: LORATADINE 10 MG TAB PO SCH (08:19)
[2023-08-20] MEDS: ASPIRIN 81 MG PO SCH (08:19)
[2023-08-20] MEDS: SENNOSIDES-DOCUSATE SODIUM 1 EACH TAB PO SCH (08:19)
[2023-08-20] MEDS: ASCORBIC ACID 500 MG TAB PO SCH (08:19)
[2023-08-20] MEDS: ATORVASTATIN 40 MG TAB PO SCH (08:19)
[2023-08-20] MEDS: FERROUS SULFATE 325 MG TAB PO SCH (08:19)
[2023-08-20] MEDS: TORSEMIDE 20 MG TAB PO SCH (08:20)
[2023-08-20] MEDS: TROSPIUM CHLORIDE 20 MG TABLET PO SCH (08:20)
[2023-08-20] MEDS: DAPAGLIFLOZIN PROPANEDIOL 5 MG TABLET PO SCH (08:21)
[2023-08-20 08:52] LABS: Basophils # (A) 0.02 X 10*3/uL (0.00-0.10); Basophils % (A) 0.2 %; Eosinophils # (A) 0.14 X 10*3/uL (0.04-0.35); Eosinophils % (A) 1.6 %; HCT 28.1 % (39.6-50.0); HGB 9.4 g/dL (13.0-17.0); Lymphocytes # (A) 1.37 X 10*3/uL (0.90-5.00); Lymphocytes % (A) 15.5 %; MCH 31.2 pg (27.0-32.0); MCHC 33.5 g/dL (32.0-37.0); MCV 93.4 FL (80.0-97.0); Mean Platelet Volume 9.8 FL (9.5-12.2); Monocytes % (A) 11.3 %; NRBC Per 100 WBC 0 X 10*3/uL (0.00-0.01); Neutrophils # (A) 6.29 X 10*3/uL (1.80-7.70); Neutrophils % (A) 70.9 %; Platelet Count 271 X 10*3/uL (140-440); RBC 3.01 X 10*6/uL (4.40-5.60); RDW 13.9 % (11.5-14.5); WBC 8.86 X 10*3/uL (4.50-10.00)
[2023-08-20 09:10] LABS: ALT 32 U/L (10-49); AST 49 U/L (14-35); Albumin 3.3 g/dL (3.8-4.9); Alkaline Phosphatase 106 U/L (41-126); BUN/Creat Ratio 14.08 Ratio (12.00-20.00); Blood Urea Nitrogen 16.9 mg/dL (9.0-27.0); Calcium 8.8 mg/dL (8.7-10.3); Chloride 100 mmol/L (96-109); Globulin 2.2 g/dL (1.6-3.3); Glucose 145 mg/dL (70-110); Potassium 3.4 mmol/L (3.5-5.5); Sodium 139 mmol/L (135-145); Total Bilirubin 0.7 mg/dL (0.3-1.2); Total Protein 5.5 g/dL (6.2-8.2)
[2023-08-20] MEDS: POTASSIUM CHLORIDE ER 20 MEQ TAB.ER PO SCH ×2 (09:39→10:43)
[2023-08-20 11:16] LABS: Glucose,Whole Blood 195 mg/dL (70-110)
--- NOTE | 2023-08-20 11:55 | P.PN ---
Progress Note - Text Progress Note Date: 08/20/23 Postoperative day #5 Patient is seen and examined today at bedside. The patient has some pain around the surgical site as expected, but he has been making some progress in terms of his pain and mobility. Pain is being controlled with medication. He is still needing some assistance with getting in and out of bed and needing assistance with some ambulation for standby Physical Exam Afebrile with stable vital signs Abdomen is soft nontender. Chest has good excursion deep and space expiration The incision site is clean intact. There is some mild serosanguineous drainage on the dressing there is no active drainage. No erythema there is no purulence. Extremities have not had neurologic change from prior to surgery. He has sustained dorsal flexion plantar flexion on the right. He has chronic weakness on the left. Calves and thighs were soft nontender without evidence of DVT. Assessment/Plan Postoperative day #5 status post open decompression fusion L2 to 5 for severe spinal stenosis with spondylolisthesis lower extremity radiculopathy and weakness Patient is progressing somewhat slowly as expected from the surgery. He has been making gains with his mobilization and pain control. He has been able to void on his own and he is tolerating his regular diet has had bowel movements. We will continue to increase the patient's mobilization with therapy. He still needing assistance with his mobility and I think he would be safest with short-term chcf or rehab prior to going home. He'll discuss this again with his . From a orthopedic standpoint is okay for him to transfer to chcf today or tomorrow if he is cleared with medicine service as well. We will continue pain control with oral or IV medications. We'll continue to follow patient closely.
--- NOTE | 2023-08-20 12:03 | P.DS ---
Providers Date of admission: 08/15/23 Attending physician: Toyin Govea Consults: 08/15/23 14:41 Consult Physician Routine Consulting Provider: Gabo Guy Consult Reason/Comments: Medical management Do you want consulting provider notified?: Yes 08/17/23 11:02 Consult Physician Routine Consulting Provider: Nathan Hernandez Reason/Comments: Inpatient rehab consult Do you want consulting provider notified?: Yes Primary care physician: Gabo [facility] Course: The patient presented on the day of admission as per their operative note. He had history of severe spinal stenosis lower extremity radiculopathy and lower extremity weakness. He has scoliosis and failed conservative treatment. After failing conservative treatment discussing different treatment options patient presented on the day of his mission for his surgical procedure of decompression and fusion as per his operative note. Patient has been making slow but steady progress in terms of his postoperative course. His been essentially as expected for this magnitude of the surgery. He has been able to mobilize but is still having some difficulty with his mobilization. He is voiding freely and having bowel movements. He is tolerating his regular diet. His pain initially was controlled with oral and IV medications and is now being better controlled with oral medications. He is not having any evidence of infectious process. Physical Exam The incision site is clean and intact. There is been some serosanguineous drainage but there is no active drainage There is no erythema no drainage. There is no purulence no evidence of infection. Abdomen soft and nontender. Chest has good excursion with deep inspiration and expiration. The patient has active and passive range of motion intact at the upper and lower extremities. There is no acute change in neurologic status. He has sustained dorsal to plantar flexion and EHL intact his right lower extremity. His left lower extremity is chronic weakness. Hospital Course Postoperative day #5 status post open decompression and fusion L1 to L5 for his severe spinal stenosis with lower extremity radiculopathy and weakness The patient has been making steady and adequate progress postoperatively. They have completed the prophylactic antibiotics without any signs or symptoms of infection. The patient has been able to advance their diet, and is tolerating diet adequately. The pain was initially controlled with IV medications and is now controlled appropriately with oral medications. The patient has been able to increase their mobilization. The patient has progressed appropriately. He is still having significant difficulty with his mobilization and transfers and I think that he would be safest with continued strengthening and recovery is halfway or rehab. I do not think that he would be completely safe yet being discharged home. I discussed this with him at bedside and we'll discuss it further with his . We'll start to make arrangements for telephonic nurse case manager for likely placement. I think they are in good stable condition for discharge to halfway today if he is cleared with medicine . They will be sent home with appropriate prescriptions. I answered their questions to the best of my ability in a language that they can understand and they are agreeable with the plan. They will follow up as directed. Patient Condition at Discharge: Fair Plan - Discharge Summary Discharge Rx Participant: Yes New Discharge Prescriptions: New HYDROcodone/APAP 10-325MG [[place] 10-325] 1 - 2 tab PO Q6H PRN #56 tab PRN Reason: Pain No Action Aspirin 81 mg PO DAILY Glucosam/Sekou-Msm1/C/Clay/Bosw [Glucosamine-Chondroitin Tablet] 1 tab PO DAILY metFORMIN HCL [Metformin HCl ER] 500 mg PO DAILY Multivitamins, Thera [Multivitamin] 1 tab PO DAILY traMADol HCl [Ultram] 50 mg PO TID PRN PRN Reason: Pain Ascorbic Acid [Vitamin C] 1,000 mg PO DAILY Loratadine 10 mg PO DAILY Losartan [Cozaar] 100 mg PO DAILY Solifenacin Succinate 5 mg PO DAILY Iron 18 mg PO DAILY Atorvastatin Calcium [Lipitor] 40 mg PO DAILY Cholecalciferol (Vitamin D3) [Vitamin D3] 1,250 mcg PO DAILY Empagliflozin [Jardiance] 10 mg PO DAILY Torsemide [Demadex] 10 mg PO DAILY amLODIPine BESYLATE 2.5 mg PO DAILY allopurinoL 300 mg PO DAILY Discharge Medication List Aspirin 81 mg PO DAILY 02/25/15 [History] Glucosam/Sekou-Msm1/C/Clay/Bosw [Glucosamine-Chondroitin Tablet] 1 tab PO DAILY 02/25/15 [History] Multivitamins, Thera [Multivitamin] 1 tab PO DAILY 02/25/15 [History] metFORMIN HCL [Metformin HCl ER] 500 mg PO DAILY 02/25/15 [History] traMADol HCl [Ultram] 50 mg PO TID PRN 02/25/15 [History] Ascorbic Acid [Vitamin C] 1,000 mg PO DAILY 03/26/21 [History] Atorvastatin Calcium [Lipitor] 40 mg PO DAILY 03/26/21 [History] Loratadine 10 mg PO DAILY 09/20/22 [History] Losartan [Cozaar] 100 mg PO DAILY 12/29/22 [History] Cholecalciferol (Vitamin D3) [Vitamin D3] 1,250 mcg PO DAILY 08/13/23 [History] Empagliflozin [Jardiance] 10 mg PO DAILY 08/13/23 [History] Iron 18 mg PO DAILY 08/13/23 [History] Solifenacin Succinate 5 mg PO DAILY 08/13/23 [History] Torsemide [Demadex] 10 mg PO DAILY 08/13/23 [History] allopurinoL 300 mg PO DAILY 08/13/23 [History] amLODIPine BESYLATE 2.5 mg PO DAILY 08/13/23 [History] HYDROcodone/APAP 10-325MG [[place] 10-325] 1 - 2 tab PO Q6H PRN #56 tab 08/20/23 [Rx] Follow up Appointment(s)/Referral(s): Toyin Govea DO [Doctor of Osteopathic Medicine] - 2 Weeks Activity/Diet/Wound Care/Special Instructions: Keep site clean. May shower with waterproof Tegaderm intact. Do not soak in a tub. dry dressing changs as needed May ambulate as tolerated. Avoid heavy or rigorous activity. No repetitive bending twisting or lifting. No overhead work. Discharge Disposition: TRANSFER TO SNF/ECF
--- NOTE | 2023-08-20 15:41 | P.PN ---
Subjective Progress Note Date: 08/20/23 Mr. Lei is a 77 y/o Right handed, male, who lives in a tri-level home, with 1 KAYLEEN. Bathroom is on second level. Prior to admission, he was ambulating with a cane at times. He was independent for basic/advanced ADLs. Current driving: yes. Retired: yes. Support system: , family He was admitted to [facility] 08/15 for a laminectomy and decompression of L1-L5 with Dr. Govea. Patient has a history of degenerative scoliosis, severe spinal stenosis with neurogenic claudication and lower extremity weakness. Patient is postop day #2. PM&R consulted for rehab recommendations. Therapy evaluations reviewed; patient needing mod assist sit to stand, mod assist bed mobility, max assist sit to supine, ambulation 5 feet min assist with 2 WW. Awaiting Occupational Therapy e valuations. 08/17/23: Patient found in bed with HOB elevated and at bedside. Patient denies CP, SOB and abdominal pain. He denies concerns with urine and bowels. He c/o some pain in his bilateral anterior thighs and was provided ice packs. He has a wound vac in place to surgical incision which will be discontinued today per EMR documentation. Patient and deny other concerns at this time. 08/20/23: Patient states he is doing ok, but has had more trouble with transfers and walking the past two days due to back and leg pain. He denies CP, SOB, and abdominal pain. He had a BM yesterday, denies issues with urination. He reports numbness and tingling down the outer parts of his legs which is not new,had prior to surgery. He has chronic left foot drop, has an AFO but doesn't feel felipa t it helps much. Patient feels he is not safe to discharge home yet, would like to come to [facility]. We are pending OT evaluations. PT: min assist x 2 with transfers, min assist to supervision with gait 30 ft. Objective - Vital Signs Vital signs: Vital Signs Temp 98.2 F 08/20/23 13:19 Pulse 84 08/20/23 13:19 Resp 20 08/20/23 13:19 BP 109/58 08/20/23 13:19 Pulse Ox 96 08/20/23 13:19 FiO2 Intake & Output 08/19/23 08/20/23 08/20/23 18:59 06:59 18:59 Other: Voiding Method Toilet # Voids 5 3 1 # Bowel Movements 3 - Exam General: WDWN, elderly male, NAD, sitting up in bed with legs elevated Head: Normocephalic, atraumatic. Eyes: Symmetric Ears: Symmetric. Hearing within normal limits. Mouth: Clear. Neck: Supple. Cardiac: Calves supple, non tender, LE edema distal > proximal, non pitting Lungs: Breathing comfortably on RA. Chest symmetric. Abdomen: Soft, nontender. Extremities: Arthritic changes consistent with age. Neurological: Alert and oriented x3 Speech is clear and fluent without paraphasic errors Sensation: decreased sensation to light touch left greater than right lower extremity- baseline Musculoskeletal: ROM WFL EXCEPT: decreased bilateral HF due to back and leg pain MMT UE Sh Abd EE EF FABD WE HG Right 5 5 5 5 Left 5 5 5 5 MMT LE HF KE DF EHL Right 3- 4 4 0 Left 3 4 0 0 Skin: Skin intact where visible to head, neck, and bilateral upper and lower extremities EXCEPT: surgical incision -not visualized today, PIV Psych: Calm, cooperative - Labs CBC & Chem 7: 08/20/23 04:48 08/21/23 07:38 Labs: Abnormal Lab Results - Last 24 Hours (Table) 08/19/23 08/19/23 08/20/23 Range/Units 17:03 19:43 04:48 RBC 3.01 L (4.40-5.60) X 10*6/uL Hgb 9.4 L (13.0-17.0) g/dL Hct 28.1 L (39.6-50.0) % Potassium (3.5-5.5) mmol/L Glucose (70-110) mg/dL POC Glucose (mg/dL) 222 H 131 H (70-110) mg/dL AST (14-35) U/L Total Protein (6.2-8.2) g/dL Albumin (3.8-4.9) g/dL Albumin/Globulin Ratio (1.60-3.17) Ratio 08/20/23 08/20/23 08/20/23 Range/Units 04:48 06:03 11:15 RBC (4.40-5.60) X 10*6/uL Hgb (13.0-17.0) g/dL Hct (39.6-50.0) % Potassium 3.4 L (3.5-5.5) mmol/L Glucose 145 H (70-110) mg/dL POC Glucose (mg/dL) 156 H 195 H (70-110) mg/dL AST 49 H (14-35) U/L Total Protein 5.5 L (6.2-8.2) g/dL Albumin 3.3 L (3.8-4.9) g/dL Albumin/Globulin Ratio 1.50 L (1.60-3.17) Ratio Assessment and Plan Assessment: #Incomplete paraplegia secondary to degenerative scoliosis and severe spinal stenosis s/p L1-5 laminectomy and decompression with medial facetectomy by Dr. Govea -PT/OT -Pain management -Dr. Govea following -08/17: wound vac in place with plans to discontinue today per EMR documentation -08/20/23 patient still needing assistance, does not feel safe to discharge home #CKD stage IIIb #NIURKA on CPAP #DM -[employer], NovoLog sliding scale #History of prostate cancer with radiation #Bowel/ Bladder: Nursing to monitor and report concerns if any. -08/20 denies issues #Diet -Regular #Skin/wound: Skin/Wound care to follow as needed #Pain Management -Tylenol 650 mg every 6 hours as needed, [place] 7.5/325 mg 1 tab every 4 hours as needed, [place] 7.5/325 mg 2 tabs every 6 hours as needed, Dilaudid 0.5 to 1 mg every 4 hours as needed, Ultram 50 mg 3 times daily as needed #DVT Prophylaxis: Defer to [facility] management. #Comorbidities: Hypertension, hyperlipidemia, gout #Your medical dx and mgt Goals: Modified Independent mobility and ADLS both basic and advanced; increased functional mobility/strength; increased balance, safety, endurance. Improvement in medical issues through your care. Barriers: Pain, endurance, postop Discharge recommendation: likely a good IPR candidate. Awaiting OT evals. Patient would benefit from structured rehabilitation program prior to returning home. Patient would like to come to IPR. Patient was independent prior to surgery and has good support system. Patient seen and examined in coordination with Dr Schulte
[2023-08-20 16:28] LABS: Glucose,Whole Blood 160 mg/dL (70-110)
--- NOTE | 2023-08-20 18:13 | P.PN ---
Subjective Progress Note Date: 08/20/23 Segun Lei, is a 77-year-old male with known history of degenerative scoliosis and severe spinal stenosis, who was admitted to [facility] by Dr. Govea, and underwent laminectomy and decompression at L1-L2, L2- L3, L3-L4, and L4-L5 Patient was admitted to surgical floor, medical consultation was requested for management while hospitalized. Patient has a known past medical history of hypertension, hyperlipidemia, gout, [id number] diabetes mellitus, scoliosis, spinal stenosis, degenerative osteoarthritis, chronic kidney disease stage IIIB, obstructive sleep apnea on CPAP. On review of system patient is alert and oriented 3 in no apparent distress he is still complaining of severe pain in the lower back otherwise he denies any complaints at this time there is no fever or chills no headache or dizziness no chest pain no shortness of breath no cough no nausea or vomiting no abdominal pain no diarrhea and no urinary symptoms. Patient still has a Flanagan catheter, he is not able to sit up or use a urinal at this time, will continue with Flanagan catheter for 1 more day, and recheck in a.m.. on 08/17/2023 patient is alert and oriented 3 currently sitting up in chair. Flanagan catheter to be removed. We'll consult inpatient rehab for possible discharge planning. Patient reports some pain. Current vital signs temp 98.3, heart rate 81, respiratory 20, blood pressure 113/65 with pulse ox 97% on 2 L. lab work currently pending On 08/18/2023 patient was seen and examined on the medical floor he is alert and oriented 3 in no apparent distress he is sitting up in a chair he was able to ambulate a few steps in the room today, pain is better controlled, Flanagan catheter was removed yesterday, vital exam reveals a temperature of 98.8 pulse 79 respiration 17 blood pressure 96/54 pulse ox 91% on room air On 08/19/2023 patient is alert and oriented 3. Patient reports improvement with abdominal discomfort and weakness. Preliminary blood culture positive for gram-negative bacilli. Infectious disease following to IV Invanz. Current vital signs temp 98.4, heart rate 64, respiratory rate 19, blood pressure 10/17/1950 with pulse ox 98% on room air. Creatinine 2.05 bun 27. Patient denies chest pain or shortness breath. Patient denies nausea vomiting or diarrhea. Patient denies any urinary burning or frequency On 08/20/2023 patient was seen and examined on the medical floor he is alert and oriented 3 in no apparent distress there is no fever or chills no headache or dizziness no chest pain no shortness of breath no cough no nausea or vomiting no abdominal pain no diarrhea and no urinary symptoms vital exam reveals a temperature of 98.2 pulse 84 respiration 20 blood pressure 109/58 pulse ox 96% on room air white blood count 8.8 hemoglobin 9.4 platelet count 271 sodium 139 potassium 3.4 chloride 100 CO2 27 BUN 16.9 creatinine 1.2 Objective - Vital Signs Vital signs: Vital Signs Temp 98.2 F 08/20/23 13:19 Pulse 84 08/20/23 13:19 Resp 20 08/20/23 13:19 BP 109/58 08/20/23 13:19 Pulse Ox 96 08/20/23 13:19 FiO2 Intake & Output 08/19/23 08/20/23 08/20/23 18:59 06:59 18:59 Other: Voiding Method Toilet # Voids 5 3 1 # Bowel Movements 3 - Exam In general patient is alert and oriented x 3 in no distress HEENT head normocephalic and atraumatic Neck is supple no JVD no goiter no lymphadenopathy no carotid bruit Chest examination is clear to auscultation no crackles no wheezing Cardiac exam reveals regular heart sounds S1 and S2 no gallops no murmurs Abdomen is soft nontender no organomegaly with normal bowel sounds Extremity exam reveals no edema no cyanosis or clubbing Neurological examination reveals no gross focal deficits - Labs CBC & Chem 7: 08/20/23 04:48 08/20/23 04:48 Labs: Abnormal Lab Results - Last 24 Hours (Table) 08/19/23 08/19/23 08/20/23 Range/Units 17:03 19:43 04:48 RBC 3.01 L (4.40-5.60) X 10*6/uL Hgb 9.4 L (13.0-17.0) g/dL Hct 28.1 L (39.6-50.0) % Potassium (3.5-5.5) mmol/L Glucose (70-110) mg/dL POC Glucose (mg/dL) 222 H 131 H (70-110) mg/dL AST (14-35) U/L Total Protein (6.2-8.2) g/dL Albumin (3.8-4.9) g/dL Albumin/Globulin Ratio (1.60-3.17) Ratio 08/20/23 08/20/23 08/20/23 Range/Units 04:48 06:03 11:15 RBC (4.40-5.60) X 10*6/uL Hgb (13.0-17.0) g/dL Hct (39.6-50.0) % Potassium 3.4 L (3.5-5.5) mmol/L Glucose 145 H (70-110) mg/dL POC Glucose (mg/dL) 156 H 195 H (70-110) mg/dL AST 49 H (14-35) U/L Total Protein 5.5 L (6.2-8.2) g/dL Albumin 3.3 L (3.8-4.9) g/dL Albumin/Globulin Ratio 1.50 L (1.60-3.17) Ratio Assessment and Plan Plan: Degenerative scoliosis with severe spinal stenosis status post laminectomy and decompression L1 to L5 Underlying history of hypertension Underlying history of hyperlipidemia Underlying history of [id number] diabetes mellitus Underlying history of obstructive sleep apnea patient uses CPAP at home Underlying history of chronic kidney disease stage IIIB Underlying history of coronary artery disease with history of cardiac catheterization Underlying history of prostate cancer with history of radiation therapy At this time patient is admitted to surgical floor Home medications reviewed and reordered Insulin to sliding scale added For DVT prophylaxis SCD stockings Pain management per orthopedic protocol Will follow closely during this admission.
[2023-08-20] MEDS: CYCLOBENZAPRINE 5 MG TAB PO PRN (21:03)
[2023-08-20 21:30] LABS: Glucose,Whole Blood 212 mg/dL (70-110)
[2023-08-20] MEDS: amLODIPine 2.5 MG TAB PO SCH (22:32)
[2023-08-21] MEDS: POTASSIUM CHLORIDE ER 20 MEQ TAB.ER PO SCH ×2 (00:26→02:13)
[2023-08-21] MEDS: HYDROcodone/APAP 10-325MG 1 EACH TAB PO PRN ×2 (02:11→08:45)
[2023-08-21 05:55] LABS: Glucose,Whole Blood 138 mg/dL (70-110)
[2023-08-21] MEDS: SODIUM CHLORIDE 0.9% 1,000 ML IV SCH ×2 (06:10→11:26)
[2023-08-21] MEDS: CYCLOBENZAPRINE 5 MG TAB PO PRN (06:15)
[2023-08-21] MEDS: INSULIN ASPART (NovoLOG) 100 UNIT/ML VIAL SQ SCH ×2 (06:35→11:25)
[2023-08-21] MEDS: allopurinoL 300 MG TAB PO SCH (08:46)
[2023-08-21] MEDS: LOSARTAN 50 MG TAB PO SCH (08:46)
[2023-08-21] MEDS: LORATADINE 10 MG TAB PO SCH (08:46)
[2023-08-21] MEDS: DAPAGLIFLOZIN PROPANEDIOL 5 MG TABLET PO SCH (08:47)
[2023-08-21] MEDS: CHOLECALCIFEROL 125 MCG (5000 IU) TABLET PO SCH (08:47)
[2023-08-21] MEDS: FERROUS SULFATE 325 MG TAB PO SCH (08:47)
[2023-08-21] MEDS: ASPIRIN 81 MG PO SCH (08:47)
[2023-08-21] MEDS: ASCORBIC ACID 500 MG TAB PO SCH (08:47)
[2023-08-21] MEDS: metFORMIN 500 MG TAB PO SCH (08:47)
[2023-08-21] MEDS: ATORVASTATIN 40 MG TAB PO SCH (08:47)
[2023-08-21] MEDS: SENNOSIDES-DOCUSATE SODIUM 1 EACH TAB PO SCH (08:47)
[2023-08-21] MEDS: TROSPIUM CHLORIDE 20 MG TABLET PO SCH (08:47)
[2023-08-21] MEDS: MULTIVITAMINS, THERA 1 EACH TAB PO SCH (08:47)
[2023-08-21] MEDS: NON FORMULARY DRUG (Glucosam/Chon-Msm1/C/Mang/Bosw [Glucosamine-Chondroitin Tablet] 1 EACH PO SCH (08:48)
[2023-08-21] MEDS: TORSEMIDE 20 MG TAB PO SCH (08:48)
[2023-08-21 09:01] VITALS: BP 131/69; PULSE 60; RESP 20; TEMP 98.2
--- NOTE | 2023-08-21 09:34 | P.PN ---
Subjective Progress Note Date: 08/21/23 Segun Lei, is a 77-year-old male with known history of degenerative scoliosis and severe spinal stenosis, who was admitted to [facility] by Dr. Govea, and underwent laminectomy and decompression at L1-L2, L2- L3, L3-L4, and L4-L5 Patient was admitted to surgical floor, medical consultation was requested for management while hospitalized. Patient has a known past medical history of hypertension, hyperlipidemia, gout, [id number]-ekqnedkya diabetes mellitus, scoliosis, spinal stenosis, degenerative osteoarthritis, chronic kidney disease stage IIIB, obstructive sleep apnea on CPAP. On review of system patient is alert and oriented 3 in no apparent distress he is still complaining of severe pain in the lower back otherwise he denies any complaints at this time there is no fever or chills no headache or dizziness no chest pain no shortness of breath no cough no nausea or vomiting no abdominal pain no diarrhea and no urinary symptoms. Patient still has a Flanagan catheter, he is not able to sit up or use a urinal at this time, will continue with Flanagan catheter for 1 more day, and recheck in a.m.. on 08/17/2023 patient is alert and oriented 3 currently sitting up in chair. Flanagan catheter to be removed. We'll consult inpatient rehab for possible discharge planning. Patient reports some pain. Current vital signs temp 98.3, heart rate 81, respiratory 20, blood pressure 113/65 with pulse ox 97% on 2 L. lab work currently pending On 08/18/2023 patient was seen and examined on the medical floor he is alert and oriented 3 in no apparent distress he is sitting up in a chair he was able to ambulate a few steps in the room today, pain is better controlled, Flanagan catheter was removed yesterday, vital exam reveals a temperature of 98.8 pulse 79 respiration 17 blood pressure 96/54 pulse ox 91% on room air On 08/19/2023 patient is alert and oriented 3. Patient reports improvement with abdominal discomfort and weakness. Preliminary blood culture positive for gram-negative bacilli. Infectious disease following to IV Invanz. Current vital signs temp 98.4, heart rate 64, respiratory rate 19, blood pressure 10/17/1950 with pulse ox 98% on room air. Creatinine 2.05 bun 27. Patient denies chest pain or shortness breath. Patient denies nausea vomiting or diarrhea. Patient denies any urinary burning or frequency On 08/20/2023 patient was seen and examined on the medical floor he is alert and oriented 3 in no apparent distress there is no fever or chills no headache or dizziness no chest pain no shortness of breath no cough no nausea or vomiting no abdominal pain no diarrhea and no urinary symptoms vital exam reveals a temperature of 98.2 pulse 84 respiration 20 blood pressure 109/58 pulse ox 96% on room air white blood count 8.8 hemoglobin 9.4 platelet count 271 sodium 139 potassium 3.4 chloride 100 CO2 27 BUN 16.9 creatinine 1.2 On 08/21/2023 patient is alert and oriented 3. Patient currently sitting up in chair vital signs temp 98.2, heart rate 60, respiratory rate 20, blood pressure 131/69 with pulse ox of 94% on room air. Discharge planning in place possible inpatient rehab. Patient cleared by medicine when bed available. Patient denies chest pain or shortness of breath. Patient denies nausea vomiting or diarrhea. Patient denies any urinary burning or frequency Objective - Vital Signs Vital signs: Vital Signs Temp 98.2 F 08/21/23 07:49 Pulse 60 08/21/23 07:49 Resp 20 08/21/23 07:49 BP 131/69 08/21/23 07:49 Pulse Ox 94 L 08/21/23 07:49 FiO2 Intake & Output 08/20/23 08/21/23 08/21/23 18:59 06:59 18:59 Other: Voiding Method Toilet # Voids 1 - Labs CBC & Chem 7: 08/20/23 04:48 08/21/23 07:38 Labs: Abnormal Lab Results - Last 24 Hours (Table) 08/20/23 08/20/23 08/20/23 Range/Units 11:15 16:27 19:34 Potassium 3.3 L (3.5-5.1) mmol/L POC Glucose (mg/dL) 195 H 160 H (70-110) mg/dL 08/20/23 08/21/23 Range/Units 21:28 05:53 Potassium (3.5-5.1) mmol/L POC Glucose (mg/dL) 212 H 138 H (70-110) mg/dL Assessment and Plan Plan: Degenerative scoliosis with severe spinal stenosis status post laminectomy and decompression L1 to L5 Underlying history of hypertension Underlying history of hyperlipidemia Underlying history of [id number]-[id number] diabetes mellitus Underlying history of obstructive sleep apnea patient uses CPAP at home Underlying history of chronic kidney disease stage IIIB Underlying history of coronary artery disease with history of cardiac catheterization Underlying history of prostate cancer with history of radiation therapy At this time patient is admitted to surgical floor Home medications reviewed and reordered Insulin to sliding scale added For DVT prophylaxis SCD stockings Pain management per orthopedic protocol Will follow closely during this admission.
[2023-08-21 11:23] LABS: Glucose,Whole Blood 128 mg/dL (70-110)
--- NOTE | 2023-08-21 12:44 | P.DS ---
Providers Attending physician: Toyin Govea Consults: 08/15/23 14:41 Consult Physician Routine Consulting Provider: Gabo Guy Consult Reason/Comments: Medical management Do you want consulting provider notified?: Yes 08/17/23 11:02 Consult Physician Routine Consulting Provider: Nathan Hernandez Consult Reason/Comments: Inpatient rehab consult Do you want consulting provider notified?: Yes Primary care physician: Gabo Malena [facility] Course: The patient presented on the day of admission as per their operative note. We had attempted forward discharge to retirement yesterday but was not able to be approved and is approved for her today. The patient feels that he is doing adequately. He still requiring help to get up and down into the bathroom. He does not feel like he would be safe at home. He says his pain is controlled oral medications but he needs to continue to take on a regular basis. He had history of severe spinal stenosis lower extremity radiculopathy and lower extremity weakness. He has scoliosis and failed conservative treatment. After failing conservative treatment discussing different treatment options patient presented on the day of his mission for his surgical procedure of decompression and fusion as per his operative note. Patient has been making slow but steady progress in terms of his postoperative course. His been essentially as expected for this magnitude of the surgery. He has been able to mobilize but is still having some difficulty with his mobilization. He is voiding freely and having bowel movements. He is tolerating his regular diet. His pain initially was controlled with oral and IV medications and is now being better controlled with oral medications. He is not having any evidence of infectious process. Physical Exam The incision site is clean and intact. There is been some serosanguineous drainage but there is no active drainage There is no erythema no drainage. There is no purulence no evidence of infection.There is mild diffuse swelling a round the area but it does not seem to be increased significantly. The incision seems to be healing adequately Abdomen soft and nontender. Chest has good excursion with deep inspiration and expiration. The patient has active and passive range of motion intact at the upper and lower extremities. There is no acute change in neurologic status. He has sustained dorsal to plantar flexion and EHL intact his right lower extremity. His left lower extremity is chronic weakness. Hospital Course Postoperative day #5 status post open decompression and fusion L1 to L5 for his severe spinal stenosis with lower extremity radiculopathy and weakness The patient has been making steady and adequate progress postoperatively. They have completed the prophylactic antibiotics without any signs or symptoms of infection. The patient has been able to advance their diet, and is tolerating diet adequately. The pain was initially controlled with IV medications and is now controlled appropriately with oral medications. The patient has been able to increase their mobilization. The patient has progressed appropriately. He is still having significant difficulty with his mobilization and transfers a nd I think that he would be safest with continued strengthening and recovery is retirement or rehab. I do not think that he would be completely safe yet being discharged home. I discussed this with him at bedside and we'll discuss it further with his . We'll start to make arrangements for continuous pillowcase cutter for likely placement. I think they are in good stable condition for discharge to retirement today. The incisions and site seems to be healing adequately. Do not have plans for further surgical intervention at the area. He should continue with daily dry dressing changes They will be sent home with appropriate prescriptions. I answered their questions to the best of my ability in a language that they can understand and they are agreeable with the plan. They will follow up as directed. Patient Condition at Discharge: Fair Plan - Discharge Summary Discharge Rx Participant: Yes New Discharge Prescriptions: New HYDROcodone/APAP 10-325MG [Locust 10-325] 1 - 2 tab PO Q6H PRN #56 tab PRN Reason: Pain INSULIN ASPART (NovoLOG) [NovoLOG (formulary)] 0 unit SQ ACHS each Continue Aspirin 81 mg PO DAILY metFORMIN HCL [Metformin HCl ER] 500 mg PO DAILY traMADol HCl [Ultram] 50 mg PO TID PRN PRN Reason: Pain Loratadine 10 mg PO DAILY Losartan [Cozaar] 100 mg PO DAILY Iron 18 mg PO DAILY Atorvastatin Calcium [Lipitor] 40 mg PO DAILY Empagliflozin [Jardiance] 10 mg PO DAILY Torsemide [Demadex] 10 mg PO DAILY amLODIPine BESYLATE 2.5 mg PO DAILY No Action Glucosam/Sekou-Msm1/C/Clay/Bosw [Glucosamine-Chondroitin Tablet] 1 tab PO DAILY Multivitamins, Thera [Multivitamin] 1 tab PO DAILY Ascorbic Acid [Vitamin C] 1,000 mg PO DAILY Solifenacin Succinate 5 mg PO DAILY Cholecalciferol (Vitamin D3) [Vitamin D3] 1,250 mcg PO DAILY allopurinoL 300 mg PO DAILY Discharge Medication List Aspirin 81 mg PO DAILY 02/25/15 [History] Glucosam/Sekou-Msm1/C/Clay/Bosw [Glucosamine-Chondroitin Tablet] 1 tab PO DAILY 02/25/15 [History] Multivitamins, Thera [Multivitamin] 1 tab PO DAILY 02/25/15 [History] metFORMIN HCL [Metformin HCl ER] 500 mg PO DAILY 02/25/15 [History] traMADol HCl [Ultram] 50 mg PO TID PRN 02/25/15 [History] Ascorbic Acid [Vitamin C] 1,000 mg PO DAILY 03/26/21 [History] Atorvastatin Calcium [Lipitor] 40 mg PO DAILY 03/26/21 [History] Loratadine 10 mg PO DAILY 09/20/22 [History] Losartan [Cozaar] 100 mg PO DAILY 12/29/22 [History] Cholecalciferol (Vitamin D3) [Vitamin D3] 1,250 mcg PO DAILY 08/13/23 [History] Empagliflozin [Jardiance] 10 mg PO DAILY 08/13/23 [History] Iron 18 mg PO DAILY 08/13/23 [History] Solifenacin Succinate 5 mg PO DAILY 08/13/23 [History] Torsemide [Demadex] 10 mg PO DAILY 08/13/23 [History] allopurinoL 300 mg PO DAILY 08/13/23 [History] amLODIPine BESYLATE 2.5 mg PO DAILY 08/13/23 [History] HYDROcodone/APAP 10-325MG [Locust 10-325] 1 - 2 tab PO Q6H PRN #56 tab 08/20/23 [Rx] INSULIN ASPART (NovoLOG) [NovoLOG (formulary)] 0 unit SQ ACHS each 08/21/23 [Rx] Follow up Appointment(s)/Referral(s): Toyin Govea DO [Doctor of Osteopathic Medicine] - 08/21/23 1:15 pm Gabo Guy MD [Primary Care Provider] - 08/23/23 2:00 pm Activity/Diet/Wound Care/Special Instructions: Keep site clean. May shower with waterproof Tegaderm intact. Do not soak in a tub. dry dressing changs as needed May ambulate as tolerated. Avoid heavy or rigorous activity. No repetitive bending twisting or lifting. No overhead work. Discharge Disposition: TRANSFER TO SNF/ECF
== END 2023-08-21 14:02 | DRG 454 ==
LOC: OR 06:54 → 4SSUR 14:51 → OR 08-20 07:24 → UNDOADMIN 08-20 07:24 → 4SSUR 08-20 07:24 → UNDODISIN 08-21 14:02 → OR 08-21 14:02
PROVIDERS: ADMIT Orthopaedic Surgery Orthopaedic Surgery of the Spine; ATTEND Orthopaedic Surgery Orthopaedic Surgery of the Spine
PROC: 0SG1071 Fusion of 2 or more Lumbar Vertebral Joints with Autologous Tissue Substitute, Posterior Approach, Posterior Column, Open Approach (ICD-10-PCS; principal; 2023-08-15 10:00)
PROC: 00NY0ZZ Release Lumbar Spinal Cord, Open Approach (ICD-10-PCS; principal; 2023-08-15 10:00)
PROC: 01NB0ZZ Release Lumbar Nerve, Open Approach (ICD-10-PCS; principal; 2023-08-15 10:00)
PROC: 0SG00AJ Fusion of Lumbar Vertebral Joint with Interbody Fusion Device, Posterior Approach, Anterior Column, Open Approach (ICD-10-PCS; principal; 2023-08-15 10:00)
PROC: 4A11X4G Monitoring of Peripheral Nervous Electrical Activity, Intraoperative, External Approach (ICD-10-PCS; principal; 2023-08-15 10:00)
DX: M48.062 Spinal stenosis, lumbar region with neurogenic claudication (principal); G82.22 Paraplegia, incomplete; M41.56 Other secondary scoliosis, lumbar region; N18.32 Chronic kidney disease, stage 3b; E11.22 Type 2 diabetes mellitus with diabetic chronic kidney disease; M47.26 Other spondylosis with radiculopathy, lumbar region; M43.17 Spondylolisthesis, lumbosacral region; M43.16 Spondylolisthesis, lumbar region; M21.372 Foot drop, left foot; E78.5 Hyperlipidemia, unspecified; G47.33 Obstructive sleep apnea (adult) (pediatric); I25.10 Atherosclerotic heart disease of native coronary artery without angina pectoris; M10.9 Gout, unspecified; I12.9 Hypertensive chronic kidney disease with stage 1 through stage 4 chronic kidney disease, or unspecified chronic kidney disease; M19.90 Unspecified osteoarthritis, unspecified site; Z79.82 Long term (current) use of aspirin; Z79.84 Long term (current) use of oral hypoglycemic drugs; Z79.899 Other long term (current) drug therapy; Z87.442 Personal history of urinary calculi; Z85.46 Personal history of malignant neoplasm of prostate; Z92.3 Personal history of irradiation; Z88.6 Allergy status to analgesic agent
CPT/HCPCS: 72100; 80048; 83036; 84132; 85025; 86891

== ENCOUNTER → 2023-10-02 | Outpatient (CLI) | payer MEDICARE, BC ==
[2023-10-02 15:31] LABS: Basophils # (A) 0.03 X 10*3/uL (0.00-0.10); Basophils % (A) 0.4 %; Eosinophils % (A) 2.4 %; HCT 33.7 % (39.6-50.0); HGB 10.4 g/dL (13.0-17.0); Lymphocytes # (A) 2.26 X 10*3/uL (0.90-5.00); Lymphocytes % (A) 27.5 %; MCH 27.7 pg (27.0-32.0); MCHC 30.9 g/dL (32.0-37.0); MCV 89.6 FL (80.0-97.0); Mean Platelet Volume 9.3 FL (9.5-12.2); Monocytes # (A) 0.63 X 10*3/uL (0.20-1.00); Monocytes % (A) 7.7 %; NRBC Per 100 WBC 0 X 10*3/uL (0.00-0.01); Neutrophils # (A) 5.06 X 10*3/uL (1.80-7.70); Neutrophils % (A) 61.5 %; Platelet Count 386 X 10*3/uL (140-440); RBC 3.76 X 10*6/uL (4.40-5.60); RDW 14.5 % (11.5-14.5); WBC 8.22 X 10*3/uL (4.50-10.00)
[2023-10-02 17:31] LABS: % Iron Saturation 10.58 (15.00-50.00); BUN/Creat Ratio 9.45 Ratio (12.00-20.00); Blood Urea Nitrogen 10.4 mg/dL (9.0-27.0); Calcium 10.1 mg/dL (8.7-10.3); Carbon Dioxide 26.5 mmol/L (21.6-31.8); Chloride 102 mmol/L (96-109); Glucose 137 mg/dL (70-110); Iron 31 UG/DL (65-175); Magnesium 2.1 mg/dL (1.5-2.4); Potassium 4.8 mmol/L (3.5-5.5); Sodium 141 mmol/L (135-145); Total Iron Binding Capacity 293 UG/DL (228-460); Uric Acid 3.3 mg/dL (3.7-8.7)
[2023-10-02 19:54] LABS: Appearance,Urine Clear (Clear); Bilirubin,Urine Negative (Negative); Blood,Urine Negative (Negative); Color,Urine Yellow (Yellow); Ketones,Urine Negative (Negative); Nitrite,Urine Negative (Negative); Specific Gravity,Urine 1.025 (1.001-1.030); Urobilinogen,Urine 0.2 E.U./DL
[2023-10-02 20:07] LABS: Bacteria,Urine None Seen (None Seen)
== END | disposition home or self-care (01) ==
LOC: LABWHC1 11:46
PROVIDERS: ATTEND Internal Medicine Nephrology
DX: N25.81 Secondary hyperparathyroidism of renal origin (principal); N18.32 Chronic kidney disease, stage 3b; D63.1 Anemia in chronic kidney disease; E55.9 Vitamin D deficiency, unspecified; M10.9 Gout, unspecified; N39.0 Urinary tract infection, site not specified; R80.9 Proteinuria, unspecified
CPT/HCPCS: 36415; 80048; 81001; 82040; 82043; 82306; 82570; 82728; 83540; 83550; 83735; 83970; 84100; 84550; 85025

== ENCOUNTER → 2024-01-30 | Outpatient (CLI) | payer MEDICARE, BC ==
[2024-01-30 15:24] LABS: Appearance,Urine Clear (Clear); Bilirubin,Urine Negative (Negative); Blood,Urine Negative (Negative); Color,Urine Yellow (Yellow); Ketones,Urine Negative (Negative); Nitrite,Urine Negative (Negative); Specific Gravity,Urine 1.021 (1.001-1.030); Urobilinogen,Urine 0.2 E.U./DL
[2024-01-30 16:13] LABS: Basophils # (A) 0.02 X 10*3/uL (0.00-0.10); Basophils % (A) 0.3 %; Eosinophils # (A) 0.14 X 10*3/uL (0.04-0.35); HCT 41.2 % (39.6-50.0); HGB 13.2 g/dL (13.0-17.0); Lymphocytes # (A) 2.56 X 10*3/uL (0.90-5.00); Lymphocytes % (A) 36.3 %; MCV 90.5 FL (80.0-97.0); Mean Platelet Volume 9.4 FL (9.5-12.2); Monocytes % (A) 8.5 %; NRBC Per 100 WBC 0 X 10*3/uL (0.00-0.01); Neutrophils # (A) 3.71 X 10*3/uL (1.80-7.70); Neutrophils % (A) 52.6 %; Platelet Count 291 X 10*3/uL (140-440); RBC 4.55 X 10*6/uL (4.40-5.60); RDW 15.9 % (11.5-14.5); WBC 7.05 X 10*3/uL (4.50-10.00)
[2024-01-30 17:32] LABS: % Iron Saturation 15.93 (15.00-50.00); Albumin 4.6 g/dL (3.8-4.9); Blood Urea Nitrogen 20.7 mg/dL (9.0-27.0); Calcium 10.4 mg/dL (8.7-10.3); Carbon Dioxide 24.9 mmol/L (21.6-31.8); Chloride 100 mmol/L (96-109); Glucose 131 mg/dL (70-110); Iron 58 UG/DL (65-175); Magnesium 2.3 mg/dL (1.5-2.4); Potassium 4.5 mmol/L (3.5-5.5); Sodium 140 mmol/L (135-145); Total Iron Binding Capacity 364 UG/DL (228-460); Uric Acid 5.8 mg/dL (3.7-8.7)
[2024-01-30 21:01] LABS: Microalbumin Creatinine Ratio <9 mg/g Cr (0-30)
== END | disposition home or self-care (01) ==
LOC: LABWHC1 11:01
PROVIDERS: ATTEND Urology
DX: E55.9 Vitamin D deficiency, unspecified (principal); N25.81 Secondary hyperparathyroidism of renal origin; M10.9 Gout, unspecified; N39.0 Urinary tract infection, site not specified; E11.22 Type 2 diabetes mellitus with diabetic chronic kidney disease; N18.2 Chronic kidney disease, stage 2 (mild); D63.1 Anemia in chronic kidney disease; R80.9 Proteinuria, unspecified
CPT/HCPCS: 36415; 80048; 81003; 82040; 82043; 82306; 82570; 82728; 83540; 83550; 83735; 83970; 84100; 84550; 85025

== ENCOUNTER 2024-03-11 08:12 | Day surgery (SDC) | payer MEDICARE, BC ==
[2024-03-04 15:06] VITALS: BMI 36.6
[2024-03-11] MEDS: IV FLUID CONTINUATION 1,000 ML IV ONE (08:26)
[2024-03-11 08:43] VITALS: TEMP 97.3
[2024-03-11] MEDS: LACTATED RINGERS 1,000 ML IV SCH (08:43)
[2024-03-11] MEDS ORDERED: PROPOFOL 10 MG/ML 20 ML VIAL IV ONE (08:46)
[2024-03-11 08:49] LABS: Glucose,Whole Blood 129 mg/dL (70-110)
--- NOTE | 2024-03-11 08:49 | P.GSHP ---
History of Present Illness H&P Date: 03/11/24 Chief Complaint: Colon cancer screening 78-year-old male here for colonoscopy. Last colonoscopy 6 to 7 years ago. States he was told his iron was low recently. No rectal bleeding or melena. No bowel complaints. Patient also requesting to be seen for possible communicating hydrocele. Past Medical History Past Medical History: Diabetes Mellitus, Hyperlipidemia, Hypertension, Osteoarthritis (OA), Sleep Apnea/CPAP/BIPAP Additional Past Medical History / Comment(s): USES CPAP, CHRONIC BACK PAIN, KIDNEY STONES History of Any Multi-Drug Resistant Organisms: None Reported Past Surgical History: Back Surgery Additional Past Surgical History / Comment(s): BACK SURGERY x3, Left hydrocele repair, kidney stone procedure x2 Past Anesthesia/Blood Transfusion Reactions: No Reported Reaction Past Psychological History: No Psychological Hx Reported Smoking Status: Never smoker Past Alcohol Use History: None Reported Past Drug Use History: None Reported - Past Family History Father Family Medical History: CVA/TIA, Diabetes Mellitus Medications and Allergies Home Medications Medication Instructions Recorded Confirmed Type Aspirin 81 mg PO DAILY 02/25/15 03/04/24 History Glucosam/Sekou-Msm1/C/Clay/Bosw 1 tab PO DAILY 02/25/15 03/04/24 History [Glucosamine-Chondroitin Tablet] Multivitamins, Thera [Multivitamin] 1 tab PO DAILY 02/25/15 03/04/24 History metFORMIN HCL [Metformin HCl ER] 500 mg PO DAILY 02/25/15 03/04/24 History traMADol HCl [Ultram] 50 mg PO TID PRN 02/25/15 03/11/24 History Ascorbic Acid [Vitamin C] 1,000 mg PO DAILY 03/26/21 03/11/24 History Atorvastatin Calcium [Lipitor] 40 mg PO DAILY 03/26/21 03/04/24 History Loratadine 10 mg PO DAILY 09/20/22 03/04/24 History Losartan [Cozaar] 50 mg PO DAILY 12/29/22 03/04/24 History Cholecalciferol (Vitamin D3) 1,250 mcg PO DAILY 08/13/23 03/11/24 History [Vitamin D3] Empagliflozin [Jardiance] 10 mg PO DAILY 08/13/23 03/04/24 History Solifenacin Succinate 5 mg PO DAILY 08/13/23 03/04/24 History allopurinoL 300 mg PO DAILY 08/13/23 03/04/24 History Ferrous Sulfate [Feosol] 325 mg PO DAILY 03/04/24 03/04/24 History Furosemide [Lasix] 10 mg PO DAILY 03/04/24 03/04/24 History Ubidecarenone [Coenzyme Q10] 200 mg PO DAILY 03/04/24 03/11/24 History Allergies Allergy/AdvReac Type Severity Reaction Status Date / Time acetaminophen AdvReac INCREASED Verified 03/11/24 08:25 LIVER ENZYMES Surgical - Exam Vital Signs Temp Pulse Resp BP Pulse Ox 97.3 F L 86 18 151/73 96 03/11/24 08:40 03/11/24 08:40 03/11/24 08:40 03/11/24 08:40 03/11/24 08:40 Physical exam: General: Well-developed, well-nourished HEENT: Normocephalic, sclerae nonicteric Abdomen: Nontender, nondistended Extremities: No edema Neuro: Alert and oriented Assessment and Plan (1) Colon cancer screening Narrative/Plan: Will proceed with colonoscopy at this time. Current Visit: Yes Status: Acute Code(s): Z12.11 - ENCOUNTER FOR SCREENING FOR MALIGNANT NEOPLASM OF COLON SNOMED Code(s): 060340619
--- NOTE | 2024-03-11 09:01 | P.PCN ---
Date of Procedure: 03/11/24 Procedure(s) Performed: PREOPERATIVE DIAGNOSIS: Colon cancer screening POSTOPERATIVE DIAGNOSIS: Mild diverticulosis PROCEDURE: Colonoscopy ANESTHESIA: MAC SURGEON: Denis Owen M.D. SPECIMENS: None ENDOSCOPIC PROCEDURE: The patient was placed on the endoscopy table in the left decubitus position. The Olympus colonoscope was inserted into the anus and passed under direct visualization to the base of the cecum. The appendiceal orifice was visualized. From that point the scope was slowly withdrawn inspecting all surfaces carefully. There were no neoplastic inflammatory or polypoid lesions throughout the cecum, ascending, transverse, descending, sigmoid and rectum. There was scattered left-sided diverticulosis noted. The patient's prep was slightly suboptimal. Digital rectal examination was normal. The patient was taken to the recovery room in stable condition per anesthesia guidelines. RECOMMENDATIONS: Resume diet. Repeat colonoscopy 10 years. Will discuss hydrocele with patient in recovery.
[2024-03-11 09:09] VITALS: RESP 16
[2024-03-11 09:24] VITALS: BP 118/72; PULSE 59
== END 2024-03-11 09:47 | disposition home or self-care (01) ==
LOC: ORWHC2ENDO 08:12
PROVIDERS: ATTEND Surgery
DX: Z12.11 Encounter for screening for malignant neoplasm of colon (principal); K57.30 Diverticulosis of large intestine without perforation or abscess without bleeding; I10 Essential (primary) hypertension; E78.5 Hyperlipidemia, unspecified; E11.9 Type 2 diabetes mellitus without complications; M19.90 Unspecified osteoarthritis, unspecified site; G47.33 Obstructive sleep apnea (adult) (pediatric); Z79.84 Long term (current) use of oral hypoglycemic drugs; Z79.899 Other long term (current) drug therapy; Z87.442 Personal history of urinary calculi; Z98.890 Other specified postprocedural states
CPT/HCPCS: J2704; G0121

== ENCOUNTER → 2024-07-11 | Outpatient (CLI) | payer MEDICARE, BC ==
[2024-07-11 15:20] LABS: Appearance,Urine Clear (Clear); Bilirubin,Urine Negative (Negative); Blood,Urine Negative (Negative); Color,Urine Yellow (Yellow); Ketones,Urine Negative (Negative); Nitrite,Urine Negative (Negative); PH, Urine 5.5; Specific Gravity,Urine 1.021 (1.001-1.030); Urobilinogen,Urine 0.2 E.U./DL
[2024-07-11 15:25] LABS: Bacteria,Urine None Seen (None Seen)
[2024-07-11 15:27] LABS: Basophils # (A) 0.03 X 10*3/uL (0.00-0.10); Basophils % (A) 0.4 %; Eosinophils # (A) 0.39 X 10*3/uL (0.04-0.35); Eosinophils % (A) 5.7 %; HCT 42.5 % (39.6-50.0); HGB 13.5 g/dL (13.0-17.0); Lymphocytes # (A) 2.37 X 10*3/uL (0.90-5.00); Lymphocytes % (A) 34.7 %; MCH 30.5 pg (27.0-32.0); MCHC 31.8 g/dL (32.0-37.0); MCV 95.9 FL (80.0-97.0); Mean Platelet Volume 9.5 FL (9.5-12.2); Monocytes # (A) 0.62 X 10*3/uL (0.20-1.00); Monocytes % (A) 9.1 %; NRBC Per 100 WBC 0 X 10*3/uL (0.00-0.01); Neutrophils % (A) 49.8 %; Platelet Count 257 X 10*3/uL (140-440); RBC 4.43 X 10*6/uL (4.40-5.60); RDW 14.2 % (11.5-14.5); WBC 6.83 X 10*3/uL (4.50-10.00)
[2024-07-11 21:34] LABS: Urine Creatinine 83.6 mg/dL (39.0-259.0)
== END | disposition home or self-care (01) ==
LOC: LABWHC1 08:31
PROVIDERS: ATTEND Internal Medicine Nephrology
CPT/HCPCS: 36415; 80048; 81001; 82040; 82043; 82306; 82570; 83540; 83550; 83735; 83970; 84100; 84550; 85025

== ENCOUNTER → 2024-07-14 | Outpatient (CLI) | payer MEDICARE, BC ==
[2024-07-15 03:07] LABS: % Iron Saturation 22.22 (15.00-50.00); Albumin 4.6 g/dL (3.8-4.9); BUN/Creat Ratio 13.86 Ratio (12.00-20.00); Blood Urea Nitrogen 19.4 mg/dL (9.0-27.0); Calcium 10.3 mg/dL (8.7-10.3); Chloride 102 mmol/L (96-109); Glucose 109 mg/dL (70-110); Iron 80 UG/DL (65-175); Magnesium 2.4 mg/dL (1.5-2.4); Phosphorus 3.9 mg/dL (2.4-5.1); Potassium 5.2 mmol/L (3.5-5.5); Sodium 142 mmol/L (135-145); Total Iron Binding Capacity 360 UG/DL (228-460); Uric Acid 5.6 mg/dL (3.7-8.7)
== END | disposition home or self-care (01) ==
LOC: LABWHC1 15:27
PROVIDERS: ATTEND Internal Medicine Nephrology
CPT/HCPCS: 36415; 80048; 82040; 82306; 82728; 83540; 83550; 83735; 84100; 84550